=== PATIENT | male | born 1955 | race Caucasian/White ===

== ENCOUNTER 2022-09-26 09:45 | Outpatient (CLI) | payer MEDICARE, SELFPAY ==
--- NOTE | ~2022-09-26 | CT_ITS ---
EXAMINATION: CT abdomen pelvis wo con DATE: 09/26/2022 10:13 INDICATION: Abdominal pain, new anemia TECHNIQUE: Computed tomography (CT) of the abdomen and pelvis was performed without intravenous contr ast. The dose-length product (DLP) was 343.98 mGy-cm. Automated exposure control and iterative recons truction technique were employed. COMPARISON: None FINDINGS: There is a moderate-sized sliding hiatal hernia. The lung bases are clear. The heart size i s normal. The liver, spleen, pancreas, and adrenal glands are normal. Stones are present in the nondi stended gallbladder. Cysts of the kidneys measure up to 4.1 cm on the right. There is calcified ather osclerosis of the aorta and many of the other arteries. No pathologically enlarged abdominal or pelvi c lymph nodes are identified. No free intraperitoneal gas or evidence of bowel obstruction. The appen jayson is normal. There is mild lumbar spondylosis. Possible mild wall thickening of the cecum. IMPRESSION: 1. Cholelithiasis without evidence of cholecystitis. 2. Possible mild wall thickening of the cecum. Recommend correlation with colonoscopy history. There are two moderate-sized sliding hiatal hernia. Reviewed, dictated and finalized at location L. IMPRESSION: 1. Cholelithiasis without evidence of cholecystitis. 2. Possible mild wall thickening of the cecum. Recommend correlation with colon oscopy history. There are two moderate-sized sliding hiatal hernia.
== END 2022-09-26 09:46 | disposition home or self-care (01) ==
PROVIDERS: PCP Internal Medicine; Visit Provider Internal Medicine
DX: R10.9 Unspecified abdominal pain (principal); K80.20 Calculus of gallbladder without cholecystitis without obstruction; K44.9 Diaphragmatic hernia without obstruction or gangrene
CPT/HCPCS: 74176

== ENCOUNTER 2022-09-28 01:35 | Day surgery (SDC) | payer MEDICARE, SELFPAY ==
[2022-09-15 10:54] VITALS: BMI 23.4
[2022-09-28 09:10] VITALS: BP 143/79; PULSE 74; RESP 18; TEMP 36.7; O2SAT 100; BMI 23.6
[2022-09-28] MEDS: LACTATED RINGERS 1,000 ML 150 ML IV CONT (09:29)
--- NOTE | 2022-09-28 09:59 | PM.HPGS ---
History of Present Illness History of Present Illness Consent: Risks, benefits, and alternatives have been discussed and questions answered. Patient agrees to proceed with procedure. Chief complaint: abadominal pain Narrative: Ida Thomas is a 67 year old male Presents for EGD because of abdominal pain. Patient reports intermittent suprapubic cramping. States his though it is a gaseous distension but he is unable to pass gas. Typically this will occur once a week last for several hours. Usually spontaneously dissipated. Patient reports it may be worsened with certain dietary intake. His bowel habits are normal. Recent CT scan revealed gallstones. There was question of a thickening to the cecum it was very nonspecific. Patient denies any fever. He has no significant alteration of bowel habits. EGD is requested today. Subsequent colonoscopy has been advised after preparation at a later day. Family history noncontributory. Previous colonoscopy 5 years ago was unremarkable. Review of Systems Review of Systems: Review of systems noncontributory. [facility] Family History Family History Sibling Patient's sister is in good health Patient's brother is in good health Mother Patient's mother is Father Patient's father is , Onset Age: 50 Social History Social History (Updated 09/11/22 @ 10:30 by Shayy Jeronimo [facility]) Smoking status: Former smoker Second hand tobacco smoke exposure: No Smoking end date: 06/25/02 Alcohol intake: current Drinks per week: 2 Substance use: never Lack of Transportation: YES Concerned About Future Housing: Decline to Answer Difficulty Paying Gas/Electric Bills: Decline to Answer Difficulty Paying for Meds: Decline to Answer Currently Unemployed: Decline to Answer Education: Decline to Answer Difficulty w/ Childcare or Family Care: Decline to Answer Spiritual care concerns: No Meds Home Medications and Allergies Home Medications Medication Instructions Recorded Confirmed Type lisinopril 20 mg tablet 20 mg PO DAILY #90 tabs 08/05/22 09/28/22 Rx ferrous sulfate 325 mg (65 mg 325 mg PO BID #60 tabs 09/22/22 09/28/22 Rx iron) tablet pantoprazole 40 mg tablet,delayed 40 mg PO BID #60 tabs 09/26/22 09/28/22 Rx release (Protonix) Allergies Allergy/AdvReac Type Severity Reaction Status Date / Time Penicillins Allergy Mild Hives Verified 09/28/22 09:18 Vital Signs Vital Signs - 24 hr 09/28/22 09:10 Temperature 98.1 F Pulse Rate 74 Respiratory Rate 18 Blood Pressure 143/79 H Pulse Oximetry 100 Oxygen Delivery Room Air Exam Narrative: Physical exam reveals patient to be alert. Vital signs stable. HEENT exam is unremarkable. Patient is anicteric. Lungs are clear to auscultation and percussion. Heart is without murmur or extra sounds. Abdomen bowel sounds are present soft nontender with no organomegaly. Digital external rectal exam normal per Assessment and Plan Assessment and plan (1) Abdominal pain: Code(s): R10.9 - Unspecified abdominal pain Status: Acute Assessment and Plan: patient with intermittent suprapubic abdominal pain of uncertain nature. Plan for EGD to assess more thoroughly today. Colonoscopy will be considered subsequently if this is not definitive for source of pain. Patient has a rather vague CT scan showing gallstones and question of thickening of the cecum. May need to consider antispasmodic agents for pain. (2) Gallstones: Code(s): K80.20 - Calculus of gallbladder without cholecystitis without obstruction Status: Acute Assessment and Plan: Gallstones identified on CT scan appear to be asymptomatic. No pain in the right upper quadrant.
[2022-09-28 10:55] VITALS: BP 98/60; PULSE 64; RESP 16; O2SAT 98
[2022-09-28 11:05] VITALS: BP 108/67; PULSE 69; RESP 18; O2SAT 100
[2022-09-28 11:15] VITALS: BP 125/74; PULSE 68; RESP 14; O2SAT 100
== END 2022-09-28 11:21 | disposition home or self-care (01) ==
PROVIDERS: PCP Internal Medicine; Visit Provider Internal Medicine Gastroenterology
PROC: 0DJ08ZZ Inspection of Upper Intestinal Tract, Via Natural or Artificial Opening Endoscopic (ICD-10-PCS; CPT 43235; principal; 2022-09-28 10:30)
DX: K22.10 Ulcer of esophagus without bleeding (principal); K80.20 Calculus of gallbladder without cholecystitis without obstruction; Z87.891 Personal history of nicotine dependence
CPT/HCPCS: 43239; 88305; J2704; J7120

== ENCOUNTER 2022-11-28 01:19 | Day surgery (SDC) | payer MEDICARE, SELFPAY ==
[2022-11-17 13:58] VITALS: BMI 22.8
--- NOTE | 2022-11-28 08:28 | P.PNAN_ITS ---
Anes - Initial Pre Proc Eval Procedure: Operation Date: 11/28/22 10:15 Proposed Procedures p Esophagogastroduodenoscopy & Colonoscopy - Ze Lebron MD Date/Time: 11/28/22 08:28 Surgeon: Ze Lebron MD Pre Op Diagnosis: Other specified diseases of intestine Patient Data Age: 67 Gender: M Height: 1.75 m Weight: 70 kg Allergies Allergy/AdvReac Type Severity Reaction Status Date / Time Penicillins Allergy Mild Hives Verified 11/28/22 09:05 Home Medications Medication Instructions Recorded Confirmed Type lisinopril 20 mg tablet 20 mg PO DAILY #90 tabs 08/05/22 11/17/22 Rx ferrous sulfate 325 mg (65 mg 325 mg PO BID #60 tabs 09/22/22 11/17/22 Rx iron) tablet pantoprazole 40 mg tablet,delayed 40 mg PO BID #60 tabs 09/26/22 11/17/22 Rx release (Protonix) sodium,potassium,mag sulfates 17.5 See Rx Instructions PO .COMPLEX 10/27/22 Rx gram-3.13 gram-1.6 gram oral soln #354 mL (Suprep Bowel Prep Kit) Patient hx anesthesia problems: none Family hx anesthesia problems: none Results Review: All pre-operative results and documents have been reviewed as part of the pre- operative evaluation. [facility] Past Medical History Medical History (Updated 11/28/22 @ 08:30 by Earl Greenberg MD) Chronic GERD Essential (primary) hypertension HTN (hypertension) Pure hypercholesterolemia Family History Family History Sibling Patient's sister is in good health Patient's brother is in good health Mother Patient's mother is Father Patient's father is , Onset Age: 50 Social History Social History (Updated 09/11/22 @ 10:30 by Shayy Jeronimo CMA) Smoking packs per day: 0.5 Smoking cigarettes per day: 10.0 Years smoked: 15 Smoking pack-years: 7.50 Smoking status: Former smoker Tobacco type: cigarettes Second hand tobacco smoke exposure: No Smoking end date: 06/25/02 Alcohol intake: never Drinks per week: 2 Substance use: never Substance use type: does not use Lack of Transportation: YES Concerned About Future Housing: Decline to Answer Difficulty Paying Gas/Electric Bills: Decline to Answer Difficulty Paying for Meds: Decline to Answer Currently Unemployed: Decline to Answer Education: Decline to Answer Difficulty w/ Childcare or Family Care: Decline to Answer Living arrangements: alone Spiritual care concerns: No Anes - Eval Final PreProcedure Day of Procedure 11/28/22 08:28 Patient weight: normal Heart: regular rate and rhythm Lungs: clear to auscultation and normal air movement Airway: Mallampati scale class II Neurological: alert and oriented Last oral intake: >/= 8 hours ASA classification: II Emergent: no Anesthetic plan: proceed Anesthesia type and monitoring: general GIVS Results Review: All pre-operative results and documents have been reviewed as part of the pre- operative evaluation. Informed Consent: The patient's anesthetic plan and its attendant risks and benefits were discussed with the patient/family/POA. Questions were solicited and answers provided to the satisfaction of the patient/family/POA.
[2022-11-28 09:06] VITALS: BMI 22.2
[2022-11-28 09:11] VITALS: BP 125/71; PULSE 63; RESP 16; TEMP 36.6; O2SAT 100
--- NOTE | 2022-11-28 09:17 | PM.HPGS ---
History of Present Illness History of Present Illness Consent: Risks, benefits, and alternatives have been discussed and questions answered. Patient agrees to proceed with procedure. Chief complaint: GERD, Erosive Esophagitis, Neoplasia screening Narrative: Ida Thomas is a 67 year old male Presents for both colonoscopy an EGD. Patient has a history of severe erosive esophagitis by endoscopy 2 months ago. Since that time patient has been maintained on pantoprazole 40mg p.o. b.i.d.. He denies any significant heartburn. He has had no significant heartburn prior to this. He does notice occasional cramping in the low abdomen. Bowel habits have otherwise remained normal. He has no bleeding. He has no weight loss. Patient presents today for follow-up EGD to document healing of his esophagitis. Also for colonoscopy for neoplasia screening purposes. Patient reports his bowel habits are normal. He has no known family history of colon or rectal disease. Review of Systems Review of Systems: Review of systems noncontributory. [facility] Past Medical History Medical History (Updated 11/28/22 @ 09:20 by Ze Lebron MD) Chronic GERD Essential (primary) hypertension HTN (hypertension) Pure hypercholesterolemia Family History Family History Sibling Patient's sister is in good health Patient's brother is in good health Mother Patient's mother is Father Patient's father is , Onset Age: 50 Social History Social History (Updated 09/11/22 @ 10:30 by Shayy Jeronimo CMA) Smoking packs per day: 0.5 Smoking cigarettes per day: 10.0 Years smoked: 15 Smoking pack-years: 7.50 Smoking status: Former smoker Tobacco type: cigarettes Second hand tobacco smoke exposure: No Smoking end date: 06/25/02 Alcohol intake: never Drinks per week: 2 Substance use: never Substance use type: does not use Lack of Transportation: YES Concerned About Future Housing: Decline to Answer Difficulty Paying Gas/Electric Bills: Decline to Answer Difficulty Paying for Meds: Decline to Answer Currently Unemployed: Decline to Answer Education: Decline to Answer Difficulty w/ Childcare or Family Care: Decline to Answer Living arrangements: alone Spiritual care concerns: No Meds Home Medications and Allergies Home Medications Medication Instructions Recorded Confirmed Type lisinopril 20 mg tablet 20 mg PO DAILY #90 tabs 08/05/22 11/17/22 Rx ferrous sulfate 325 mg (65 mg 325 mg PO BID #60 tabs 09/22/22 11/17/22 Rx iron) tablet pantoprazole 40 mg tablet,delayed 40 mg PO BID #60 tabs 09/26/22 11/17/22 Rx release (Protonix) Allergies Allergy/AdvReac Type Severity Reaction Status Date / Time Penicillins Allergy Mild Hives Verified 11/28/22 09:05 Vital Signs Vital Signs - 24 hr 11/28/22 09:11 Temperature 98 F Pulse Rate 63 Respiratory Rate 16 Blood Pressure 125/71 Pulse Oximetry 100 Oxygen Delivery Room Air Exam Narrative: Physical exam reveals patient to be alert. Vital signs stable. HEENT exam is unremarkable. Patient is anicteric. Lungs are clear to auscultation and percussion. Heart is without murmur or extra sounds. Abdomen bowel sounds are present soft nontender with no organomegaly. Digital external rectal exam is normal. Assessment and Plan Assessment and plan (1) Chronic GERD: Code(s): K21.9 - Gastro-esophageal reflux disease without esophagitis Status: Acute Assessment and Plan: Patient with chronic GE reflux disease. Appears to have erosive esophagitis by history follow-up EGD to document healing at this time. Long-term anti-reflux measures and PPI therapy are encouraged. (2) Encounter for screening colonoscopy: Code(s): Z12.11 - Encounter for screening for malignant neoplasm of colon Status: Acute Assessment an
[2022-11-28] MEDS: LACTATED RINGERS 1,000 ML 150 ML IV CONT (09:18)
--- NOTE | 2022-11-28 10:09 | SUR.OPER ---
EGD: [id number] COLON: [id number]
[2022-11-28 10:24] VITALS: BP 112/67; PULSE 72; RESP 20; O2SAT 100
[2022-11-28 10:34] VITALS: BP 114/73; PULSE 59; RESP 20; O2SAT 100
[2022-11-28] MEDS: PROPARACAINE HCL 0.5% 15 ML OPHTH SOLN 1 DROP EACH EYE (10:40)
[2022-11-28 10:44] VITALS: BP 118/69; PULSE 72; RESP 18; O2SAT 100
[2022-11-28] MEDS: DICLOFENAC SODIUM 0.1% OPHTH SOLN 2.5 ML BOTTLE 1 DROP EACH EYE (10:45)
[2022-11-28] MEDS: ARTIFICIAL TEARS OPHTH SOLN 15 ML BOTTLE 1 DROP EACH EYE (10:54)
[2022-11-28 10:56] LABS: Basophils Percent Auto 0.9 % (0.2-1.2); Eosinophils Absolute Auto 0.1 K/mm3 (0-0.3); Eosinophils Percent Auto 2.1 % (0-4.4); Hematocrit 33.7 % (42.0-52.0); Hemoglobin 10.5 g/dL (14.0-18.0); Lymphocytes Absolute Auto 0.77 K/mm3 (0.9-3.2); Lymphocytes Percent Auto 22.7 % (18.3-44.2); Mean Corpuscular HGB Conc 31.2 g/dl (32-36); Mean Corpuscular Hemoglobin 27.1 pg (26-34); Mean Corpuscular Volume 87.1 fl (80-100); Mean Platelet Volume 7.9 fl (7.4-10.4); Monocytes Absolute Auto 0.3 K/mm3 (0.1-0.6); Monocytes Percent Auto 9.7 % (2.6-8.5); Neutrophils Absolute Auto 2.2 K/mm3 (1.3-6.7); Neutrophils Percent Auto 64.6 % (45.5-73.1); Platelet Count Result 230 k/mm3 (150-375); Red Blood Count 3.87 M/mm3 (4.6-6.20); Red Cell Distribution Width 20.1 % (11.5-14.5); White Blood Count 3.4 K/mm3 (4.5-10.0)
--- NOTE | 2022-11-28 11:02 | SUR.PHASEII ---
1024: PT CAME TO POST OP WITH LEFT EYE WATERING, REDDNESS, BURNING, AND ITCHING. DR DIALLO NOTIFIED AND POST OP CORNEAL ABRASION PROTOCOL ORDERED AND INITIATED. LAB WORK DRAWN IN POST OP PER ORDERS. 1104: DR KEN BACK TO PT'S ROOM TO DISCUSS FURTHER DISCHARGE INSTRUCTIONS PER PT REQUEST.
[2022-11-28 11:04] LABS: Albumin Level 4.5 g/dL (3.5-5.1); Anion Gap 9 mmol/L (8-16); Blood Urea Nitrogen 12 mg/dL (9-20); Calcium 9.3 mg/dL (8.4-10.2); Carbon Dioxide 24 mmol/L (22-30); Chloride 105 mmol/L (98-107); Estimated CRCL calculation 60 ml/min; Estimated Glomerular Filt Rate > 60; Glucose 80 mg/dL (65-110); Phosphorus 3.8 mg/dL (2.5-4.5); Potassium 4.4 mmol/L (3.4-5.0); Sodium 138 mmol/L (137-145)
== END 2022-11-28 11:07 | disposition home or self-care (01) ==
PROVIDERS: PCP Internal Medicine; Visit Provider Internal Medicine Gastroenterology
PROC: 0DJ08ZZ Inspection of Upper Intestinal Tract, Via Natural or Artificial Opening Endoscopic (ICD-10-PCS; CPT 43235; principal; 2022-11-28 10:15)
DX: Z12.11 Encounter for screening for malignant neoplasm of colon (principal); C18.0 Malignant neoplasm of cecum; K44.9 Diaphragmatic hernia without obstruction or gangrene; K22.10 Ulcer of esophagus without bleeding; K57.30 Diverticulosis of large intestine without perforation or abscess without bleeding; K21.9 Gastro-esophageal reflux disease without esophagitis; I10 Essential (primary) hypertension; E78.00 Pure hypercholesterolemia, unspecified; Z87.891 Personal history of nicotine dependence
CPT/HCPCS: 43239; 45380; 45381; 36415; 80069; 82378; 85025; 88305; A9270; J2704; J7120

== ENCOUNTER 2022-12-12 11:54 | Outpatient (CLI) | payer MEDICARE, SELFPAY ==
--- NOTE | 2022-12-12 12:26 | ECG_ITS ---
Measurements Intervals [place] Rate: 62 P: 62 [place]: 168 QRS: 56 QRSD: 94 T: 48 QT: 379 QTc: 386 Interpretive Statements SINUS RHYTHM NO PREVIOUS ECG AVAILABLE FOR COMPARISON Electronically Signed On 12-12-2022 16:20:35 CDT by Tico De Jesus M.D.
== END 2022-12-12 11:55 | disposition home or self-care (01) ==
LOC: ANHSURGERY 11:58
PROVIDERS: PCP Internal Medicine; Visit Provider Surgery
DX: Z01.812 Encounter for preprocedural laboratory examination (principal); Z01.810 Encounter for preprocedural cardiovascular examination; C18.9 Malignant neoplasm of colon, unspecified
CPT/HCPCS: 36415; 86850; 86900; 86901; 93005

== ENCOUNTER 2022-12-21 17:28 | Inpatient (IN) | payer MEDICARE, SELFPAY ==
[2022-12-12 11:56] VITALS: BMI 23.1
--- NOTE | 2022-12-12 12:15 | PC.NURSE ---
Report to the Outpatient Waiting Room, entrance under the green pavilion located off [facility], at time 12:30 on date 12/21/22. Planned Procedure Time: 2:30. Time changes happen often and if your time is changed the preop area will call you the afternoon before. - You and your visitor will be asked to self-screen and do not enter if you have any COVID symptoms. - A mask is optional within the hospital at this time. YOU WILL BE STAYING OVERNIGHT. PLEASE PACK A SMALL OVERNIGHT BAG AND LEAVE IN THE CAR FOR YOUR VISITOR TO BRING TO YOUR ROOM AFTER YOUR SURGERY. Patients may have clear liquids (water, carbonated beverages, clear teas, apple juice) until 3 hours prior to surgery (11:30) with a maximum of 20 ounces. - No food from midnight until time of surgery FOLLOW INSTRUCTIONS FROM DR. LORD REGARDING BOWEL PREP AND ENSURE. Take the following medications with a SIP of water the morning of surgery: NONE DO NOT STOP ANY OF YOUR OTHER PRESCRIPTION MEDICATIONS PRIOR TO SURGERY ?EXCEPT THE FOLLOWING Medications to discontinue per physician: N/A Date to take last dose: N/A FOLLOW INSTRUCTIONS FROM DR. LORD REGARDING CIPROFLOXACIN AND METRONIDAZOLE DAY BEFORE SURGERY. Please no make-up, nail lithuanian, hairspray, perfume, deodorant, or body powder the day of surgery. No jewelry (including any body piercings) or valuables the day of surgery, leave them at home. Please take a shower or bath the night before, or the morning of, surgery with an antibacterial soap. Wear comfortable, loose fitting clothing. - Jewelry must be removed prior to entering the operating room. Rings and piercings that are not removed may be cut off. - The hospital will not accept responsibility for valuables. - Please leave all valuables, including medications, at home the day of surgery. If you are going home after surgery, a licensed fire truck driver must drive you home. - NO public transportation without another adult if you receive anesthesia. - We recommend that an adult stay with you for 24 hours following discharge. - We also recommend that you do not drive, make important decision, drink alcoholic beverages, or take any drugs that were not prescribed by your health care provider for at least 24 hours after your discharge time. Follow any additional instructions given to you from your surgeon. If you or anyone in your household have experienced Covid symptoms in the past week, please notify your surgeon or the nurse liaison at the phone number below for possible testing. WRITTEN instructions given to CONI HERNANDEZ and asked if any additional questions and then verbalized understanding. Patient advised to call surgeon office or pre surgery nurse liaison [phone] if any additional questions.
[2022-12-12 12:32] VITALS: BP 124/63; PULSE 68; RESP 16; TEMP 37.3
--- NOTE | 2022-12-20 14:10 | WPDANESEPPF ---
Anes - Initial Pre Proc Eval Procedure: Operation Date: 12/21/22 13:00 Proposed Procedures p Robotic Assisted Right Colectomy - Mame Mckee MD Date/Time: 12/20/22 14:10 Surgeon: Mame Mckee MD Pre Op Diagnosis: right colon CA Patient Data Age: 67 Gender: M Height: 1.75 m Weight: 71.2 kg Last Vital Signs Temp 99.2 F 12/12/22 12:32 Pulse 68 12/12/22 12:32 Resp 16 12/12/22 12:32 BP 124/63 12/12/22 12:32 Allergies Allergy/AdvReac Type Severity Reaction Status Date / Time Penicillins Allergy Mild Hives Verified 12/21/22 12:12 Home Medications Medication Instructions Recorded Confirmed Type lisinopril 20 mg tablet 20 mg PO DAILY #90 tabs 08/05/22 12/21/22 Rx pantoprazole 40 mg tablet,delayed 40 mg PO BID #60 tabs 11/28/22 12/21/22 Rx release (Protonix) ciprofloxacin HCl 500 mg tablet See Rx Instructions .Route 12/08/22 12/19/22 Rx (Cipro) .COMPLEX #1 tablet metronidazole 500 mg tablet See Rx Instructions .Route 12/08/22 12/19/22 Rx .COMPLEX #3 tabs Patient hx anesthesia problems: none Family hx anesthesia problems: none Results Review: All pre-operative results and documents have been reviewed as part of the pre-operative evaluation. [facility] Past Medical History Medical History Chronic GERD Essential (primary) hypertension HTN (hypertension) Pure hypercholesterolemia Surgical History Surgical History Elective surgery Finger History of lung surgery Family History Family History Sibling Patient's sister is in good health Patient's brother is in good health Mother Patient's mother is Father Patient's father is , Onset Age: 50 Social History Social History Smoking packs per day: 1 Smoking cigarettes per day: 20.0 Years smoked: 15 Smoking pack-years: 15.00 Smoking status: Former smoker Tobacco type: cigarettes Second hand tobacco smoke exposure: No Smoking end date: 06/25/90 Alcohol intake: current Drinks per week: 2 Alcohol use details: RARE Substance use: current Substance use type: marijuana Lack of Transportation: YES Concerned About Future Housing: Decline to Answer Difficulty Paying Gas/Electric Bills: Decline to Answer Difficulty Paying for Meds: Decline to Answer Currently Unemployed: Decline to Answer Education: Decline to Answer Difficulty w/ Childcare or Family Care: Decline to Answer Living arrangements: alone Spiritual care concerns: No Anes - Eval Final PreProcedure Day of Procedure 12/20/22 14:10 Patient weight: normal Heart: regular rate and rhythm Lungs: clear to auscultation Airway: Mallampati scale class II Neurological: alert and oriented Last oral intake: >/= 8 hours ASA classification: III Emergent: no Anesthetic plan: proceed Anesthesia type and monitoring: general ETT and standard monitoring Results Review: All pre-operative results and documents have been reviewed as part of the pre-operative evaluation. Informed Consent: The patient's anesthetic plan and its attendant risks and benefits were discussed with the patient/family/POA. Questions were solicited and answers provided to the satisfaction of the patient/family/POA.
[2022-12-21] VITALS (12 sets, daily range): BP systolic 105–144; BP diastolic 37–106; PULSE 52–76; RESP 12–20; TEMP 36.3–37.6; O2SAT 97–100; BMI 22.3
[2022-12-21] MEDS: LACTATED RINGERS 1,000 ML 30 ML IV CONT ×2 (11:55→16:19)
[2022-12-21] MEDS: ACETAMINOPHEN 500 MG TABLET 1000 MG PO ×2 (12:02→17:55)
[2022-12-21] MEDS: KETOROLAC 15 MG/ML VIAL (*BKC) IV PUSH (12:03)
--- NOTE | 2022-12-21 12:09 | WPDHPUPDATE1 ---
History and Physical Update Update Date/Time: 12/21/22 12:09 History and Physical has been reviewed, including an updated exam of the patient. There are NO changes in the patient's condition. Risks, benefits, and alternatives have been discussed and questions answered. Patient agrees to proceed with procedure.
[2022-12-21] MEDS: ALVIMOPAN 12 MG CAPSULE PO (12:36)
[2022-12-21] MEDS: ceFAZolin 2 GM/D5W 50 ML 2 GM/50 ML BAG IVPB (12:49)
[2022-12-21] MEDS: metroNIDAZOLE 500 MG/ISO 100ML 500 MG/100 ML BAG 100 MG IVPB (13:45)
[2022-12-21] MEDS: INDOCYANINE GREEN 25 MG VIAL WITH DILUENT 3.75 MG IV PUSH (14:42)
--- NOTE | 2022-12-21 16:22 | W.PM.PROC2 ---
Procedure Note - Detailed Date of Procedure 12/21/22 Pre-op Diagnosis right colon cancer Post-op Diagnosis Same Procedure Performed robotic assisted right hemicolectomy Surgeon Mame Mckee MD Employment Educational Coord Emmanuel Anesthesia General Indications 67-year-old male presenting to the office with right colon cancer. The patient had colonoscopy and biopsy was proven to be adenocarcinoma. Given these findings the patient was offered right colectomy. The patient opted to proceed with the procedure. Findings Tattoo and mass noted in the cecum Description of Procedure The patient was taken to the operating room and placed in the supine position.? After adequate induction of general anesthesia, the patient was prepped and draped in the normal sterile fashion.? A time-out was then done to verify the patient's identity, as well as the procedure being performed. Please note that my partner Dr. Benitez was present for the entirety of the case and assisted me with all portions of the procedure including set up, port placement, medial to lateral dissection, right colon resection, ileocolic anastomosis, specimen extraction.? A 8 mm incision was made at bird's point and a Veress needle was placed into the peritoneal cavity.? CO2 gas was then insufflated.? After adequate pneumoperitoneum was achieved, the Veress needle was removed and a 8 mm Optiview trocar was placed under direct visualization.? Once noted to be in the abdominal cavity the trocar was removed and the laparoscopic was placed this site.? Direct visualization, a 12 mm port was placed in the left upper abdomen, a 8 mm port was placed in the left mid abdomen, a 8 mm port was placed in the suprapubic abdomen, and finally a 8 mm customer marketing assistant port was placed in the left upper abdomen.? At this point, I used the laparoscope to examine the abdomen.? There was noted to be a tumor in the cecum with noted tattoo that was tethered to the right lateral abdominal wall.? I was able to sweep the small bowel out of the way.? The omentum was brought up over the transverse colon.? Once these maneuvers were complete, the robot was docked to the port sites.? I then went to the robotic console to begin the robotic portion of the case.? I was able to gain access into the right colonic mesentery.? I was able to visualize the duodenum and this was swept posteriorly out of the operative field.? I then identified the ileocolic vessels and transected the vessels with the vessel sealer device.? I then continued my medial to lateral dissection freeing up the mesentery of the right colon off the underlying retroperitoneal structures.? This medial dissection was continued until I was able to visualize the liver in the right upper quadrant.? I then began the lateral dissection by taking the omentum off the proximal transverse colon and continuing this dissection plane around the hepatic flexure.? I then continued along the right colon taking down the white line of Toldt and connecting this with our medial dissection plane.? Finally, I finished the dissection by taking down the ileocolic attachments including the appendix.? Once the right colon was completely mobilized and free I began to pick the areas of our resection.? ICG was injected by Anesthesia and under firefly visualization I was able to identify the vascular adequacy of our anticipated transection margins.? Once these margins were confirmed, I first transected the ileum with a 60 surefire stapler.? This was approximately 5 cm from the ileocolic valve.? Next I transected the proximal transverse colon again having confirmed good perfusion to the remaining colon.? The specimen was then placed up over the liver for anticipated extraction later in the case.? At this point, I completed a isoperistaltic, intracorporeal? ileocolic anastomosis.? This was done using a 60 mm stapler as the common channel.? I then closed the common enterotomy using an additional fire of the 60 mm stapler.? Once completed, th
[2022-12-21] MEDS: MEPERIDINE HCL INJ (*CRX) 50 MG/ML AMPUL 25 MG IV PUSH (17:01)
--- NOTE | 2022-12-21 17:36 | ADMGEN ---
This patient, Ida Thomas, was admitted to Medical Room 343-01. Patient/family oriented to hospital policies and general routines including ID bracelet, bed and alarms, visiting hours, pain management, procedures, bathroom and other care routines, personal items, smoking policy, room service/diet, and visiting hours. Information on how to activate the Rapid Response Team has been discussed. Patient/Family are encouraged to report perceived risks to care and to ask questions if they do not understand what they are told or what they should do.
[2022-12-21] MEDS: LACTATED RINGERS 1,000 ML 100 ML IV CONT (17:54)
[2022-12-21] MEDS: HYDROcodone/acetaminophen (*CRX) 5-325 MG TABLET 1 TAB PO (20:31)
[2022-12-21] MEDS: ceFAZolin 1 GM/NS 50 ML 1 GM/50 ML BAG IVPB (20:31)
[2022-12-22] MEDS: ACETAMINOPHEN 500 MG TABLET 1000 MG PO ×3 (00:19→13:28)
[2022-12-22 03:13] VITALS: BP 117/56; PULSE 65; RESP 16; TEMP 36.9; O2SAT 98
[2022-12-22] MEDS: LACTATED RINGERS 1,000 ML 100 ML IV CONT (04:30)
[2022-12-22] MEDS: ceFAZolin 1 GM/NS 50 ML 1 GM/50 ML BAG IVPB (05:25)
[2022-12-22 05:38] LABS: Basophils Percent Auto 0.3 % (0.2-1.2); Eosinophils Percent Auto 0.2 % (0-4.4); Hematocrit 29.9 % (42.0-52.0); Hemoglobin 9.4 g/dL (14.0-18.0); Immature Granulocyte Absolute 0.02 K/mm3 (0.00-0.031); Immature Granulocyte Percent A 0.3 % (0-0.5); Lymphocytes Percent Auto 12.6 % (18.3-44.2); Mean Corpuscular HGB Conc 31.4 g/dl (32-36); Mean Corpuscular Hemoglobin 27.5 pg (26-34); Mean Corpuscular Volume 87.4 fl (80-100); Mean Platelet Volume 8.4 fl (7.4-10.4); Monocytes Absolute Auto 0.8 K/mm3 (0.1-0.6); Monocytes Percent Auto 11.8 % (2.6-8.5); Neutrophils Absolute Auto 4.7 K/mm3 (1.3-6.7); Neutrophils Percent Auto 74.8 % (45.5-73.1); Platelet Count Result 220 k/mm3 (150-375); Red Blood Count 3.42 M/mm3 (4.6-6.20); Red Cell Distribution Width 16.4 % (11.5-14.5); White Blood Count 6.3 K/mm3 (4.5-10.0)
[2022-12-22 05:45] LABS: Anion Gap 8 mmol/L (8-16); Blood Urea Nitrogen 13 mg/dL (9-20); Calcium 8.5 mg/dL (8.4-10.2); Carbon Dioxide 23 mmol/L (22-30); Chloride 106 mmol/L (98-107); Estimated CRCL calculation 50 ml/min; Estimated Glomerular Filt Rate 60; Glucose 91 mg/dL (65-110); Potassium 4.1 mmol/L (3.4-5.0); Sodium 137 mmol/L (137-145)
--- NOTE | 2022-12-22 07:56 | WPDANESPN ---
Anes - Prog Note Post-Op Date/Time: 12/22/22 07:56 Vital Signs: Last Vital Signs Temp 36.9 C 12/22/22 03:13 Pulse 65 12/22/22 03:13 Resp 16 12/22/22 03:13 BP 117/56 L 12/22/22 03:13 Pulse Ox 98 12/22/22 03:13 O2 Del Method Room Air 12/21/22 20:00 O2 Flow Rate 10 12/21/22 16:35 Pain Score (VAS): 0 I/O: Intake & Output 12/21/22 12/21/22 12/22/22 15:59 23:59 07:59 Intake Total 709 337 6298 Output Total 100 200 Balance 150 250 950 Laboratory Tests 12/22/22 05:19 12/22/22 05:19 12/22/22 05:19 WBC 6.3 RBC 3.42 L Hgb 9.4 L Hct 29.9 L MCV 87.4 MCH 27.5 MCHC 31.4 L RDW 16.4 H Plt Count 220 MPV 8.4 Immature Gran % (Auto) 0.3 Neut % (Auto) 74.8 H Lymph % (Auto) 12.[address] % (Auto) 11.8 H Eos % (Auto) 0.2 Baso % (Auto) 0.3 Lymph # (Auto) 0.[address] [place] # (Auto) 0.8 H Eos # (Auto) 0.0 Baso # (Auto) 0.0 Abs Immat Gran (auto) 0.02 Absolute Neuts (auto) 4.7 Absolute Nucleated RBC 0.0 Nucleated RBC % 0.0 Sodium 137 Potassium 4.1 Chloride 106 Carbon Dioxide 23 Anion Gap 8 BUN 13 Creatinine 1.20 Estim Creat Clear Calc 50 Estimated GFR 60 Glucose 91 Calcium 8.5 Patient Feedback: Patient satisfied with anesthetic care.
[2022-12-22 08:19] VITALS: BP 105/55; PULSE 58; RESP 16; TEMP 37.2; O2SAT 97
[2022-12-22] MEDS: lisinopriL 20 MG TABLET PO (08:26)
[2022-12-22] MEDS: PANTOPRAZOLE 40 MG TABLET PO (08:26)
[2022-12-22] MEDS: ENOXAPARIN 40 MG/0.4 ML SYRINGE SUB-Q (08:26)
[2022-12-22 14:00] VITALS: BP 131/63; PULSE 65; RESP 16; TEMP 37.1; O2SAT 97
--- NOTE | 2022-12-22 15:41 | PM.DS ---
DS: Admitting Diagnosis Discharge Date 12/22/22 Admitting Diagnosis Right colon cancer DS: Discharge Diagnosis Discharge Diagnosis (1) Adenocarcinoma: Code(s): C80.1 - Malignant (primary) neoplasm, unspecified Status: Acute Assessment and Plan: status post robotic right colectomy, doing well, continue routine postoperative care, await path, home with p.o. analgesia and Colace, follow-up 2 weeks DS: Summary Hospital Course Reason for hospitalization: right colon cancer Hospital Course: The patient is a pleasant 67-year-old male presenting with right colon adenocarcinoma. The patient underwent robotic assisted right colectomy on 12/21/2022, please see full operative report for details of that procedure. Postoperatively the patient did well and was transferred to the surgical floor. Overnight, the patient reports he had a small bowel movement and has been passing flatus. Postoperative day 1., his Morales was removed in the morning and he was able to tolerate a clear liquid diet. His diet was slowly advanced throughout the day which he tolerated without difficulty. The patient reports minimal incisional soreness, well controlled with p.o. analgesia. At this time, the patient will be discharged home with p.o. analgesia and Colace. His path is pending and I will call him with the results when available. The patient will follow up with me 2 weeks. Status at Discharge Functional status at discharge: independent ambulation Overall status at discharge: patient is progressing back to baseline Time Spent with Patient Time attestation: Total time spent providing and/or coordinating discharge services: Time spent: Less than 30 minutes Exam Const: General: cooperative, comfortable and no acute distress Resp: Auscultation: clear to auscultation bilaterally Cardio: Rate: regular rate Rhythm: regular rhythm GI: Inspection: normal to inspection, non-distended and incision GI Palp: Yes abdominal tenderness, Yes Soft to palpation, Yes Tenderness to palpation present (GI), No Guarding due to palpation present (GI) and No Rigid due to palpation DS: Data Data Completed and Pending Pending studies at discharge: Pending at discharge 12/21/22 15:42 Surgical [PTH] Routine 12/21/22 15:48 Surgical [PTH] Routine Labs on day of discharge: Labs from last 24 hours 12/22/22 05:19 WBC 6.3 RBC 3.42 L Hgb 9.4 L Hct 29.9 L MCV 87.4 MCH 27.5 MCHC 31.4 L RDW 16.4 H Plt Count 220 MPV 8.4 Immature Gran % (Auto) 0.3 Neut % (Auto) 74.8 H Lymph % (Auto) 12.6 L [place] % (Auto) 11.8 H Eos % (Auto) 0.2 Baso % (Auto) 0.3 Lymph # (Auto) 0.80 L [place] # (Auto) 0.8 H Eos # (Auto) 0.0 Baso # (Auto) 0.0 Abs Immat Gran (auto) 0.02 Absolute Neuts (auto) 4.7 Absolute Nucleated RBC 0.0 Nucleated RBC % 0.0 Sodium 137 Potassium 4.1 Chloride 106 Carbon Dioxide 23 Anion Gap 8 BUN 13 Creatinine 1.20 Estim Creat Clear Calc 50 Estimated GFR 60 Glucose 91 Calcium 8.5 Discharge Plan Discharge Attending physician on discharge: Mame Mckee Discharging Clinician: Mame Mckee Anticipated Discharge Date/Time: 12/22/22 15:39 Patient Disposition: Home, Self-Care Activity: may shower and no straining Diet: as tolerated Wound Care Instructions: incision open to air Patient Instructions: Antibiotic Form Stand Alone Forms: General Discharge Information Follow-up/Referrals: Mame Mckee MD [Physician] - 2 Weeks Discharge Medications: New hydrocodone-acetaminophen 7.5-325 mg tablet 1 tablet PO Q6H PRN (Reason: pain) Qty: 30 0RF docusate sodium [Colace] 100 mg capsule 100 mg PO BID Qty: 30 0RF Continued lisinopril 20 mg tablet 20 mg PO DAILY Qty: 90 1RF pantoprazole [Protonix] 40 mg tablet,delayed release (DR/EC) 40 mg PO BID Qty: 60 3RF Rx Instructions: stop omeprazole Discontinued ciprofloxacin HCl [Cipro] 500
--- NOTE | 2022-12-22 17:06 | PC.NURSE ---
Dr Mckee to resubmit prescriptions to local [facility]. The first attempt was sent to mail order pharmacy that patient no longer uses. Pt is aware and ok with discharging before submission was processed as his ride was waiting.
== END 2022-12-22 17:15 | disposition home or self-care (01) | DRG 330 ==
LOC: ANH3MED 17:31
PROVIDERS: Admitting Provider Surgery; PCP Internal Medicine; Visit Provider Surgery
PROC: 0DTF4ZZ Resection of Right Large Intestine, Percutaneous Endoscopic Approach (ICD-10-PCS; principal; 2022-12-21 13:00)
DX: C18.2 Malignant neoplasm of ascending colon (principal); C79.89 Secondary malignant neoplasm of other specified sites; K21.9 Gastro-esophageal reflux disease without esophagitis; I10 Essential (primary) hypertension; E78.00 Pure hypercholesterolemia, unspecified; Z87.891 Personal history of nicotine dependence; Z88.0 Allergy status to penicillin
CPT/HCPCS: 36415; 80048; 85025; 88309; A9270; J0690; J1100; J1650; J1836; J1885; J2175; J2250; J2405; J2704; J2710; J3010; J7120

== ENCOUNTER 2023-01-25 08:13 | Outpatient (CLI) | payer MEDICARE, SELFPAY ==
--- NOTE | ~2023-01-25 | CT_ITS ---
Clinical Indication: Colon cancer CT Scan of the Chest, Abdomen, and Pelvis with Contrast: Technique: Contiguous sections were acquired throughout the chest, abdomen, and pelvis after intraven ous administration of 100 cc of Omnipaque 350. Dose reduction technique was used on this scan by mei maldonado automated exposure control and iterative reconstruction technique. The dose-length product (DL P) was 505.70 mGy-cm. COMPARISON: 09/26/2022 Findings: There is no evidence of any significant mediastinal, hilar or axillary lymphadenopathy. The mediastin al soft tissues and vascular structures appear normal. Moderate hiatal hernia noted. There is no evidence of pleural or pericardial effusion. The lungs are clear. No pulmonary nodules or infiltrates are noted. The liver, spleen, pancreas, adrenals and kidneys are within normal limits. Small gallstone present. There are atherosclerotic calcifications of the aorta. No lymphadenopathy. No bowel obstruction or bowel wall thickening. Sigmoid and descending colonic diverticulosis present. Enterocolonic anastomosis noted. Urinary bladder is unremarkable. No pelvic mass evident. No ascites. Impression: No evidence for active malignancy or metastatic disease. Status post right colonic resection with ent erocolonic anastomosis present. Cholelithiasis. Moderate hiatal hernia. Reviewed, dictated and finalized at [facility]. Impression: No evidence for active malignancy or metastatic disease. Status post right colo sharron resection with enterocolonic anastomosis present. Cholelithiasis. Moderate hiatal hernia.
[2023-01-25 08:54] LABS: Estimated Glomerular Filt Rate 60
== END 2023-01-25 08:14 | disposition home or self-care (01) ==
PROVIDERS: PCP Internal Medicine; Visit Provider Internal Medicine Hematology & Oncology
DX: C18.9 Malignant neoplasm of colon, unspecified (principal); K80.20 Calculus of gallbladder without cholecystitis without obstruction; K44.9 Diaphragmatic hernia without obstruction or gangrene
CPT/HCPCS: 36415; 71260; 74177; 85610; 85730; Q9967

== ENCOUNTER 2023-01-25 11:32 | Outpatient (CLI) | payer MEDICARE, SELFPAY ==
[2023-01-25 12:11] LABS: Partial Thromboplastin Time 29.7 SECONDS (22.3-36.8); Prothrombin Time 13.5 Seconds (11.1-14.7)
== END 2023-01-25 11:33 | disposition home or self-care (01) ==
LOC: ANHSURGERY 11:35
PROVIDERS: PCP Internal Medicine; Visit Provider Surgery
DX: Z01.812 Encounter for preprocedural laboratory examination (principal); C18.9 Malignant neoplasm of colon, unspecified
CPT/HCPCS: 36415; 85610; 85730

== ENCOUNTER 2023-01-29 01:05 | Day surgery (SDC) | payer MEDICARE, SELFPAY ==
[2023-01-25 09:27] VITALS: BMI 22.4
--- NOTE | 2023-01-25 09:54 | PC.NURSE ---
Report to the Outpatient Waiting Room, entrance under the green pavilion located off [facility], at time __8:30AM on date __01/29/23 . Planned Procedure Time: _10:30AM . Time changes happen often and if your time is changed the preop area will call you the afternoon before. - You and your visitor will be asked to self-screen and do not enter if you have any COVID symptoms. - A mask is optional within the hospital at this time. Patients may have clear liquids (water, carbonated beverages, clear teas, apple juice) until 3 hours prior to surgery with a maximum of 20 ounces. - No food from midnight until time of surgery Take the following medications with a SIP of water the morning of surgery: __NONE DO NOT STOP ANY OF YOUR OTHER PRESCRIPTION MEDICATIONS PRIOR TO SURGERY ?EXCEPT THE FOLLOWING Medications to discontinue per physician ____HOLD ALL VITAMINS/SUPPLEMENTS 3 DAYS PRE-OP Date to take last dose__01/25/23 Please no make-up, nail urdu, hairspray, perfume, deodorant, or body powder the day of surgery. No jewelry (including any body piercings) or valuables the day of surgery, leave them at home. Please take a shower or bath the night before, or the morning of, surgery with an antibacterial soap. Wear comfortable, loose fitting clothing. Children are encouraged to wear pajamas. - Jewelry must be removed prior to entering the operating room. Rings and piercings that are not removed may be cut off. - The hospital will not accept responsibility for valuables. - Please leave all valuables, including medications, at home the day of surgery. If you are going home after surgery, a licensed steam train driver must drive you home. - NO public transportation without another adult if you receive anesthesia. - We recommend that an adult stay with you for 24 hours following discharge. - We also recommend that you do not drive, make important decision, drink alcoholic beverages, or take any drugs that were not prescribed by your health care provider for at least 24 hours after your discharge time. Follow any additional instructions given to you from your surgeon. If you or anyone in your household have experienced Covid symptoms in the past week, please notify your surgeon or the nurse liaison at the phone number below for possible testing. Telephone instructions given to __PATIENT and asked if any additional questions and then verbalized understanding. Patient advised to call surgeon office or pre surgery nurse liaison [phone] if any additional questions.
--- NOTE | ~2023-01-29 | XR_ITS ---
EXAMINATION: XR chest port-a-cath/central DATE: 01/29/2023 10:25 INDICATION: Port placement. TECHNIQUE: A single frontal view of the chest was obtained. COMPARISON: Fluoroscopy 01/29/2023, chest CT 01/25/2023 FINDINGS: There is no pneumonia, pleural effusion, or pneumothorax. The heart size is normal. There i s a moderate-sized hiatal hernia. There is a right subclavian port with tip in superior vena cava. Th ere is deviation of the catheter between the clavicle and first rib without catheter compression. IMPRESSION: 1. Port tip in superior vena cava. 2. Moderate-sized hiatal hernia. Reviewed, dictated and finalized at location A.
--- NOTE | ~2023-01-29 | XR_ITS ---
EXAMINATION: XR fl guide central line place DATE: 01/29/2023 10:15 INDICATION: Port placement. TECHNIQUE: A single intraoperative fluoroscopic view of the chest was obtained. I was not present. Fl uoroscopy exposure time was 28 seconds. COMPARISON: CT chest 01/25/23 FINDINGS: There is a right subclavian port with tip in superior vena cava. IMPRESSION: 1. Port tip in superior vena cava. Reviewed, dictated and finalized at location A.
--- NOTE | 2023-01-29 07:29 | WPDHPUPDATE1 ---
History and Physical Update Update Date/Time: 01/29/23 07:29 History and Physical has been reviewed, including an updated exam of the patient. There are NO changes in the patient's condition. Risks, benefits, and alternatives have been discussed and questions answered. Patient agrees to proceed with procedure. pt seen by oncology and recommendation for adjuvant chemotherapy, will setup for VAD placement for access
[2023-01-29 08:27] VITALS: BMI 22.6
[2023-01-29 08:30] VITALS: BP 145/72; PULSE 73; RESP 16; TEMP 36.4; O2SAT 100
[2023-01-29] MEDS: LACTATED RINGERS 1,000 ML 30 ML IV CONT ×2 (09:00→10:19)
--- NOTE | 2023-01-29 09:08 | WPDANESEPPF ---
Anes - Initial Pre Proc Eval Procedure: Operation Date: 01/29/23 10:30 Proposed Procedures p Insertion Marito Cath - Mame Mckee MD Date/Time: 01/29/23 09:08 Surgeon: Mame Mckee MD Pre Op Diagnosis: colon cancer Patient Data Age: 67 Gender: M Height: 1.75 m Weight: 69 kg Allergies Allergy/AdvReac Type Severity Reaction Status Date / Time Penicillins Allergy Mild Hives Verified 01/25/23 09:24 Home Medications Medication Instructions Recorded Confirmed Type pantoprazole 40 mg tablet,delayed 40 mg PO BID #60 tabs 11/28/22 01/25/23 Rx release (Protonix) multivitamin 1 tablet PO DAILY 01/10/23 01/25/23 History lisinopril 20 mg tablet 20 mg PO QAM 01/25/23 01/25/23 History Patient hx anesthesia problems: none Family hx anesthesia problems: none Results Review: All pre-operative results and documents have been reviewed as part of the pre-operative evaluation. [facility] Past Medical History Medical History Chronic GERD Essential (primary) hypertension HTN (hypertension) Pure hypercholesterolemia Surgical History Surgical History Elective surgery Finger History of lung surgery Hx of right hemicolectomy robotic assisted right hemicolectomy by Dr. Mckee on 12/21/22. Family History Family History Sibling Patient's sister is in good health Patient's brother is in good health Mother Patient's mother is Father Patient's father is , Onset Age: 50 Social History Social History Smoking packs per day: 1 Smoking cigarettes per day: 20.0 Years smoked: 15 Smoking pack-years: 15.00 Smoking status: Former smoker Tobacco type: cigarettes Second hand tobacco smoke exposure: No Smoking end date: 12/23/90 Alcohol intake: current Drinks per week: 2 Alcohol use details: RARE Substance use: never Substance use type: marijuana Lack of Transportation: YES Lack of Food: Never True Current Housing: Decline to Answer Concerned About Future Housing: Decline to Answer Difficulty Paying Gas/Electric Bills: Decline to Answer Difficulty Paying for Meds: Decline to Answer Currently Unemployed: Decline to Answer Education: Decline to Answer Difficulty w/ Childcare or Family Care: Decline to Answer Living arrangements: alone Spiritual care concerns: No Anes - Eval Final PreProcedure Day of Procedure 01/29/23 09:08 Patient weight: normal Heart: regular rate and rhythm Lungs: clear to auscultation Airway: Mallampati scale class II Neurological: alert and oriented Last oral intake: >/= 8 hours ASA classification: III Emergent: no Anesthetic plan: proceed Anesthesia type and monitoring: general GIVS and standard monitoring Results Review: All pre-operative results and documents have been reviewed as part of the pre-operative evaluation. Informed Consent: The patient's anesthetic plan and its attendant risks and benefits were discussed with the patient/family/POA. Questions were solicited and answers provided to the satisfaction of the patient/family/POA.
[2023-01-29] MEDS: KETOROLAC 15 MG/ML VIAL (*BKC) IV PUSH (09:12)
[2023-01-29] MEDS: ceFAZolin 2 GM/D5W 50 ML 2 GM/50 ML BAG IVPB (09:31)
[2023-01-29] MEDS: BUPIVACAINE/EPINEPHRINE 0.25% 10 ML VIAL 20 ML INFILTRATE (09:42)
[2023-01-29] MEDS: HEPARIN SODIUM 5,000 UNITS/ML VIAL 5000 UNITS IRRIGATION (09:47)
[2023-01-29] MEDS: HEPARIN SODIUM, PORCINE 10,000 UNITS/10 ML VIAL 3000 UNITS IV PUSH (09:48)
[2023-01-29 10:12] VITALS: BP 99/53; PULSE 72; RESP 16; O2SAT 96
--- NOTE | 2023-01-29 10:13 | W.PM.PROC2 ---
Procedure Note - Detailed Date of Procedure 01/29/23 Pre-op Diagnosis colon cancer Post-op Diagnosis Same Procedure Performed placement right subclavian venous access device under fluroscopic guidance Surgeon Mame Mckee MD Anesthesia MAC and Local Indications 67 y/o M c colon cancer requiring access for chemotherapy Findings 1st stick R SCV Description of Procedure Patient was brought into the operating room and placed in the supine position. After adequate induction of mac anesthesia, the patient was prepped and draped in normal sterile fashion. Time-out was then done to verify the patient's identity, as well as the procedure being performed. I began by making a small incision in the right chest, I then gained access into the right subclavian vein with an 18 gauge needle. I then placed the guidewire into the vein and confirmed placement via fluoroscopic guidance. I then locally anesthetized the area in the right chest. I then enlarged the incision around the guidewire including making a subcutaneous pocket inferiorly to allow placement of the port itself. I then placed a dilating sheath over the guidewire into the right subclavian vein via sterile Seldinger technique. This was once again done and confirmed via fluoroscopic guidance. I then removed the dilator and the guidewire, now just leaving the sheath in the vein. I then fed the previously flushed catheter into the right subclavian vein under fluoroscopic guidance. At approximately 18 cm, the catheter was noted to be near the atrial caval junction. I then peeled away the sheath, now just leaving the catheter in the vein. I then was able to easily draw and flush from the catheter. The catheter was cut to fit and attached to the port itself. The port was placed into the previously made subcutaneous pocket and sutured in with 0 Ethibond suture. Final fluoroscopic view showed the termination of the catheter at the atrial caval junction with a nice smooth curvature back to the port itself. I was able to gain access to the port with a Bolanos needle and was able to easily draw and flush from the port. I then flushed 4 cc of a final heparin flush into the port. The incision was closed with 3 0 Vicryl suture in the subcutaneous tissue and the skin was closed with 4 O Monocryl subcuticular suture. Dermabond was then placed on wound. The patient tolerated the procedure well and will be sent to the recovery room in stable condition. Implants R SCV VAD Estimated Blood Loss 5 Drains No Packing No Pathology None sent Complications No immediate complications Condition Stable Disposition PACU [facility] Billing Surgery - Charge Forward: Surgery Billing
[2023-01-29 10:45] VITALS: BP 118/85; PULSE 64; RESP 16; O2SAT 100
[2023-01-29 11:11] VITALS: BP 113/93; PULSE 70; RESP 16
== END 2023-01-29 11:21 | disposition home or self-care (01) ==
PROVIDERS: PCP Internal Medicine; Visit Provider Surgery
PROC: (CPT 36561; principal; 2023-01-29 10:30)
DX: C18.9 Malignant neoplasm of colon, unspecified (principal); K21.9 Gastro-esophageal reflux disease without esophagitis; Z87.891 Personal history of nicotine dependence; K44.9 Diaphragmatic hernia without obstruction or gangrene; I10 Essential (primary) hypertension; E78.00 Pure hypercholesterolemia, unspecified; F12.90 Cannabis use, unspecified, uncomplicated
CPT/HCPCS: 36561; 77001; C1788; J0690; J1644; J1885; J2250; J2405; J2704; J3010; J7030; J7120

== ENCOUNTER 2023-04-13 09:32 | Inpatient (IN) | payer MEDICARE, SELFPAY ==
[2023-04-13] VITALS (22 sets, daily range): BP systolic 72–141; BP diastolic 50–85; PULSE 87–133; RESP 13–23; TEMP 36.4–39.5; O2SAT 95–100; BMI 21.1; BMI 19.9
--- NOTE | ~2023-04-13 | XR_ITS ---
EXAMINATION: XR chest 1V portable DATE: 04/13/2023 11:25 INDICATION: Neutropenic fever TECHNIQUE: frontal view of the chest was obtained. COMPARISON: Chest radiograph dated 01/29/2023 FINDINGS: Again seen is a currently accessed right subclavian central venous port catheter with distal tip in t he midsuperior vena cava. Again noted is undulation the course of the catheter where it passes betwee n the first rib and clavicle but without evident compression of the catheter. Lungs remain clear with no focal airspace opacities, pulmonary edema, pleural effusion or pneumothorax. Arch size is normal. Small hiatal hernia. IMPRESSION: 1. No acute cardiopulmonary disease. Reviewed, dictated and finalized at location A.
--- NOTE | 2023-04-13 09:55 | ECG_ITS ---
Measurements Intervals [place] Rate: 110 P: 8 CT: 124 QRS: 35 QRSD: 85 T: 56 QT: 303 QTc: 410 Interpretive Statements SINUS TACHYCARDIA ABNORMAL RHYTHM ECG COMPARED TO ECG 12/12/2022 12:38:15 SINUS TACHYCARDIA NOW PRESENT Electronically Signed On 04-13-2023 13:35:21 CDT by Bhavin Pereyra MD
[2023-04-13 10:21] LABS: Hematocrit 31.5 % (42.0-52.0); Hemoglobin 10.7 g/dL (14.0-18.0); Immature Platelet Fraction Pct 3.1 % (0.9-11.2); Lymphocytes Absolute Auto 0.39 K/mm3 (0.9-3.2); Lymphocytes Percent Auto 37.9 % (18.3-44.2); Mean Corpuscular Hemoglobin 29.7 pg (26-34); Mean Corpuscular Volume 87.5 fl (80-100); Mean Platelet Volume 10.1 fl (7.4-10.4); Monocytes Absolute Auto 0.3 K/mm3 (0.1-0.6); Monocytes Percent Auto 25.2 % (2.6-8.5); Neutrophils Absolute Auto 0.4 K/mm3 (1.3-6.7); Neutrophils Percent Auto 36.9 % (45.5-73.1); Platelet Count Result 63 k/mm3 (150-375); Red Cell Distribution Width 19.5 % (11.5-14.5)
[2023-04-13] MEDS: SODIUM CHLORIDE 0.9% IV 1,000 ML 999 ML IV CONT ×2 (10:21→11:44)
--- NOTE | 2023-04-13 10:25 | ED.GENADULT ---
HPI - General Adult General Chief complaint: Weakness Stated complaint: weakness, fall Time Seen by Provider: 04/13/23 09:48 History of Present Illness HPI narrative: 67-year-old male presented to the ED for evaluation of lightheaded dizziness and dehydration. Patient is currently undergoing treatment for colon cancer. Patient had surgery by Dr. Mckee approximately 4 months ago. Patient has been undergoing chemotherapy by Dr. Santos. Patient's last treatment was approximately 1.5 weeks ago. Patient reports over the last few days he has had increasing fatigue lightheaded dizziness. Patient does report decreased p.o. intake and increased generalized weakness. Related Data Home Medications Medication Instructions Recorded Confirmed multivitamin 1 tablet PO DAILY 01/10/23 04/13/23 lisinopril 20 mg tablet 20 mg PO QAM 01/25/23 04/13/23 iron 40 mg capsule 40 mg PO DAILY 02/06/23 04/13/23 pantoprazole 40 mg tablet,delayed 40 mg PO DAILY 04/04/23 04/13/23 release (Protonix) ondansetron HCl 8 mg tablet 8 mg PO DAILY PRN Nausea 04/13/23 04/13/23 Allergies Allergy/AdvReac Type Severity Reaction Status Date / Time Penicillins Allergy Mild Hives Verified 04/13/23 13:28 Review of Systems Review of Systems: All systems reviewed & are unremarkable except as noted in HPI and below PMFSH Past Medical History Medical History Chronic GERD Essential (primary) hypertension HTN (hypertension) Pure hypercholesterolemia Surgical History Surgical History Elective surgery Finger History of lung surgery Hx of right hemicolectomy robotic assisted right hemicolectomy by Dr. Mckee on 12/21/22. Family History Family History Sibling Patient's sister is in good health Patient's brother is in good health Mother Patient's mother is Father Patient's father is , Onset Age: 50 Social History Social History Smoking packs per day: 1 Smoking cigarettes per day: 20.0 Years smoked: 20 Smoking pack-years: 20.00 Smoking status: Former smoker Tobacco type: cigarettes Second hand tobacco smoke exposure: No Smoking end date: 12/23/90 Alcohol intake: former Drinks per week: 2 Alcohol use details: RARE Substance use: never Substance use type: marijuana Other substance usage details: vapes 2- 3 times weekly Lack of Transportation: No Lack of Food: Never True Current Housing: I Have Housing Concerned About Future Housing: No Difficulty Paying Gas/Electric Bills: No Difficulty Paying for Meds: No Currently Unemployed: No Education: High School Diploma/GED Difficulty w/ Childcare or Family Care: No Living arrangements: alone Spiritual care concerns: No Exam Narrative: APPEARANCE: Well appearing, no pain, no distress, well-nourished. HEAD: normocephalic, atraumatic. EYES: PERRLA/EOMI, conjunctivae clear. NOSE: Normal no drainage NECK: Supple. No adenopathy, no masses. RESPIRATORY: Airway patent, respirations nonlabored. Clear to auscultation bilaterally, no rales, rhonchi, wheezing. CARDIOVASCULAR: Regular rate and rhythm without murmurs rubs or gallops. ABDOMINAL: Soft, nontender, nondistended, normal bowel sounds MUSCULOSKELETAL: Moves all extremities. Strength/ROM intact, No edema, No calf tenderness. NEURO: Alert. Cranial nerves II through XII intact. Grossly intact SKIN: Warm, dry. Normal Color Course Course Emergency Course: 67-year-old male presented the emergency department for evaluation of increased generalized weakness. Patient was found to be febrile and neutropenic. Blood cultures were ordered and patient was started on cefepime. Oncology was consulted and patient was admitted to the hospitalist. Patient and f
[2023-04-13 10:28] LABS: Alanine Aminotransferase 48 U/L (6-50); Albumin Level 3.8 g/dL (3.5-5.1); Alkaline Phosphatase 92 U/L (38-126); Anion Gap 11 mmol/L (8-16); Aspartate Amino Transferase 57 U/L (17-59); Bilirubin,Total 1.1 mg/dL (0.2-1.3); Blood Urea Nitrogen 23 mg/dL (9-20); Calcium 9.6 mg/dL (8.4-10.2); Carbon Dioxide 20 mmol/L (22-30); Chloride 97 mmol/L (98-107); Estimated CRCL calculation 49 ml/min; Estimated Glomerular Filt Rate > 60; Glucose 132 mg/dL (65-110); Lactic Acid Reflex 2.7 mmol/L (0.7-2.0); Potassium 3.9 mmol/L (3.4-5.0); Sodium 128 mmol/L (137-145)
[2023-04-13 10:29] LABS: INR 1.2; Prothrombin Time 15.4 Seconds (11.1-14.7)
[2023-04-13 11:00] LABS: Influenza A QL RT-PCR Negative (Negative); Influenza B QL RT-PCR Negative (Negative); RSV RNA, RT-PCR Negative (Negative); SARS-CoV-2 RNA PCR Negative (Negative)
[2023-04-13] MEDS: CEFEPIME 2 GM/NS 50 ML 2 GM/50 ML BAG IVPB ×2 (11:43→21:04)
--- NOTE | 2023-04-13 12:21 | ADMGEN ---
This patient, Leighann Thomas, was admitted to IMU Room 201-01. Patient/family oriented to hospital policies and general routines including ID bracelet, bed and alarms, visiting hours, pain management, procedures, bathroom and other care routines, personal items, smoking policy, room service/diet, and visiting hours. Information on how to activate the Rapid Response Team has been discussed. Patient/Family are encouraged to report perceived risks to care and to ask questions if they do not understand what they are told or what they should do.
[2023-04-13 12:42] LABS: MRSA (PCR) NOT DETECTED (NOT DETECTE)
[2023-04-13 13:16] LABS: Reflex Lactic Acid Yes or No Add Lactic
[2023-04-13 14:28] LABS: Lactic Acid 1.8 mmol/L (0.7-2.0)
[2023-04-13] MEDS: LACTATED RINGERS 1,000 ML 100 ML IV CONT (16:23)
[2023-04-13] MEDS: ACETAMINOPHEN 325 MG TABLET 650 MG PO (16:24)
[2023-04-13] MEDS: ONDANSETRON INJ 4 MG/2 ML VIAL 8 MG IV PUSH (16:24)
--- NOTE | 2023-04-13 16:45 | PDONCCN ---
HPI - Date of Consult Date/Time: 04/13/23 16:45 Requesting Physician: Eligio Dimas MD Primary Care Provider: Santos Faria, DO - Consult Narrative Reason for consult: Colon cancer with pancytopenia Narrative: Leighann Thomas is a 67 year old male with history of stage IIIC colon cancer status post right-sided hemicolectomy on December 21, 2022. Patient started adjuvant chemotherapy with FOLFOX regimen on February 05. He received cycle 4 of chemotherapy on April 02. He came into the hospital with generalized weakness tiredness and fatigue along with lightheadedness and dizziness. Labs showed WBC of 1.0 with ANC of 400 [place] hemoglobin [place] [id number]. He does have some diarrhea. He has some low-grade fever. Denies any cough and sore throat. Complaining of some back pain. Patient is generally tired and fatigued. Chest x-ray showed no acute cardiopulmonary process. Review of Systems - Review of Systems All systems reviewed & are unremarkable except as noted in [facility] and [facility] Medical History: Medical History (Last Reviewed 01/29/23 @ 09:08 by Homer Davis MD) Chronic GERD Essential (primary) hypertension HTN (hypertension) Pure hypercholesterolemia Surgical History: Surgical History (Last Reviewed 01/29/23 @ 09:08 by Homer Davis MD) Elective surgery Finger History of lung surgery Hx of right hemicolectomy robotic assisted right hemicolectomy by Dr. Mckee on 12/21/22. Family History: Family History (Last Reviewed 01/29/23 @ 09:08 by Homer Davis MD) Sibling Patient's sister is in good health Patient's brother is in good health Mother Patient's mother is Father Patient's father is , Onset Age: 50 - Social History Social History: Social History (Last Reviewed 01/29/23 @ 09:08 by Homer Davis MD) Alcohol Use: Alcohol intake: former Drinks per week: 2 Alcohol use details: RARE Substance Use: Substance use: never Substance use type: marijuana Other substance usage details: vapes 2- 3 times weekly Others: Spiritual care concerns: No Living Arrangements: Living arrangements: alone Smoking Status: Smoking status: Former smoker Tobacco type: cigarettes Second hand tobacco smoke exposure: No Smoking end date: 12/23/90 Approximate Smoking End Date: 1989 Smoking Pack-years: Smoking packs per day: 1 Smoking cigarettes per day: 20.0 Years smoked: 20 Smoking pack-years: 20.00 Social Determinants of Health: Has the Lack of Transportation Kept You From Medical Appointments or From Getting Medications?: No Within the Past 12 Months, Were You Worried Whether Your Food Would Run Out Before You Got Money to Buy More?: Never True What is Your Housing Situation Today?: I Have Housing Are You Worried That in the Next 2 Months, You May Not Have Your Own Housing to Live In?: No Do You Have Trouble Paying Your Heating Or Electricity Bill?: No Do You Have Trouble Paying For Medicines?: No Are You Currently Unemployed and Looking for Work?: No Highest Level of Education Completed: High School Diploma/GED Do You Have Trouble With Childcare or the Care of a Family Member?: No Exam - Vital Signs Vital Signs - 24 hr 04/13/23 09:34 04/13/23 09:41 04/13/23 09:46 Temperature 37.5 C Pulse Rate 133 H 115 H 118 H Respiratory Rate 18 16 16 Blood Pressure 72/50 L 91/66 L 100/85 Pulse Oximetry 99 99 99 Oxygen Delivery Room Air 04/13/23 10:22 04/13/23 10:31 04/13/23 10:46 Temperature Pulse Rate 112 H 109 H 108 H Respiratory Rate 23 H 15 13 Blood Pressure 97/64 L 106/63 104/62 Pulse Oximetry 100 99 100 Oxygen Delivery 04/13/23 10:52 04/13/23 11:01 04/13/23 11:16 Temperature 38.0 C H Pulse Rate 110 H 107 H Respiratory Rate 13 18 Blood Pressure 102/73 98/65 L Pulse Oximetry 100 100
[2023-04-13 16:50] LABS: Appearance Urine Cloudy (Clear); Bacteria Urine None Seen /hpf; Bilirubin Urine 1+ (Negative); Blood Urine Negative (Negative); Color Urine Dark Yellow (Yellow); Glucose Urine UA Negative (Negative); Ketones Urine Trace mg/dL (Negative); Leukocyte Esterase Ur Trace LEU/UL (Negative); Nitrate Urine Negative (Negative); Non Pathogenic Casts 0-2; Protein Urine 1+ mg/dL (Negative); RBC Urine 0-2 /hpf (0-2); Specific Grav Ur 1.025 (1.001-1.035); Squamous Epithelial Cell Urine Occasional /hpf (Few); WBC Urine 0-5 /hpf; pH Urine 5.5 (5.0-9.0)
[2023-04-13 16:57] LABS: Add Urine Microscopic? YES
[2023-04-13 19:10] LABS: Iron 17 ug/dL (49-181)
[2023-04-13 19:19] LABS: Percent Iron Saturation 5 % (20-50)
[2023-04-13 20:18] LABS: Folic Acid > 20.0 ng/mL (2.76->20)
--- NOTE | 2023-04-13 20:24 | PM.IMHP ---
H&P: HPI History of Present Illness Date/Time: 04/13/23 20:24 Chief Complaint: Fever Narrative: 67-year-old male presents here with weakness, multiple falls, fever with past medical history of colon cancer (last chemo 1.5w ago), GERD, HTN, and HLD. Patient reports that yesterday he began feeling increasingly weak, having difficulty with balance, dizziness, and an increase in falls. patient's 1st fall was around 1:00 a.m. yesterday, 2nd fall was around 3:00 a.m., and 3rd fall was around 8:00 a.m.. Two of the 3 falls were described as syncopal events with presyncope feeling and waking up on floor. 1 fall patient describes staggering into the miller and eventually ending up on the ground due to instability. unclear if patient hit his head. However patient has no outward signs of trauma, no focal areas of tenderness or pain, and no spinal tenderness or bruising on his back. Patient was initially concerned there may be some bruising to his posterior trunk. patient also endorsing decreased PO intake in the last day. +chills/rigors and N/V that started today. does not endorse nausea currently. Some mild diarrhea that started Sunday, 1 episode per day and non-bloody. Review of Systems Review of Systems: All systems reviewed & are unremarkable except as noted in HPI and below PMFSH Past Medical History Medical History (Updated 04/13/23 @ 21:43 by Linda Browning APRN) Chronic GERD Colon adenocarcinoma Diverticulosis Essential (primary) hypertension Gallstones HTN (hypertension) Hyperlipidemia Surgical History Surgical History (Updated 04/13/23 @ 16:48 by Abhinav Santos MD) Elective surgery Finger History of lung surgery Hx of right hemicolectomy robotic assisted right hemicolectomy by Dr. Mckee on 12/21/22. Family History Family History Sibling Patient's sister is in good health Patient's brother is in good health Mother Patient's mother is Father Patient's father is , Onset Age: 50 Social History Social History (Updated 04/13/23 @ 21:44 by Linda Browning APRN) Social History: Patient currently lives alone. Surrogate decision maker: Amos Thomas, daughter. Code status: Full Code. Smoking packs per day: 1 Smoking cigarettes per day: 20.0 Years smoked: 20 Smoking pack-years: 20.00 Smoking status: Former smoker Tobacco type: cigarettes Second hand tobacco smoke exposure: No Smoking end date: 12/23/90 Alcohol intake: former Drinks per week: 2 Alcohol use details: RARE Substance use: never Substance use type: marijuana Other substance usage details: vapes 2- 3 times weekly Lack of Transportation: No Lack of Food: Never True Current Housing: I Have Housing Concerned About Future Housing: No Difficulty Paying Gas/Electric Bills: No Difficulty Paying for Meds: No Currently Unemployed: No Education: High School Diploma/GED Difficulty w/ Childcare or Family Care: No Living arrangements: alone Spiritual care concerns: No Meds Home Medications and Allergies Home Medications Medication Instructions Recorded Confirmed Type multivitamin 1 tablet PO DAILY 01/10/23 04/13/23 History lisinopril 20 mg tablet 20 mg PO QAM 01/25/23 04/13/23 History iron 40 mg capsule 40 mg PO DAILY 02/06/23 04/13/23 History pantoprazole 40 mg tablet,delayed 40 mg PO DAILY 04/04/23 04/13/23 History release (Protonix) ondansetron HCl 8 mg tablet 8 mg PO DAILY PRN Nausea 04/13/23 04/13/23 History Allergies Allergy/AdvReac Type Severity Reaction Status Date / Time Penicillins Allergy Mild Hives Verified 04/13/23 13:28 Vital Signs Vital Signs - 24 hr 04/13/23 09:34 04/13/23 09:41 04/13/23 09:46 Temperature 99.5 F Pulse Rate 133 H 115 H 118 H Respiratory Rate 18 16 16 Blood Pressure 72/50 L 91/66 L 100/85 Pulse Oximetry 99 99 99 Oxygen Del
[2023-04-13] MEDS: PANTOPRAZOLE 40 MG TABLET PO (21:12)
[2023-04-14] VITALS (15 sets, daily range): BP systolic 106–139; BP diastolic 60–72; PULSE 74–101; RESP 16–18; TEMP 36.2–37.7; O2SAT 97–99
[2023-04-14] MEDS: LACTATED RINGERS 1,000 ML 100 ML IV CONT (04:07)
[2023-04-14 06:24] LABS: Hematocrit 27.6 % (42.0-52.0); Hemoglobin 9.4 g/dL (14.0-18.0); Immature Platelet Fraction Pct 3.4 % (0.9-11.2); Lymphocytes Absolute Auto 0.28 K/mm3 (0.9-3.2); Lymphocytes Percent Auto 39.4 % (18.3-44.2); Mean Corpuscular HGB Conc 34.1 g/dl (32-36); Mean Corpuscular Volume 88.2 fl (80-100); Mean Platelet Volume 11.2 fl (7.4-10.4); Monocytes Absolute Auto 0.3 K/mm3 (0.1-0.6); Monocytes Percent Auto 39.4 % (2.6-8.5); Neutrophils Absolute Auto 0.2 K/mm3 (1.3-6.7); Neutrophils Percent Auto 21.2 % (45.5-73.1); Platelet Count Result 57 k/mm3 (150-375); Red Blood Count 3.13 M/mm3 (4.6-6.20); Red Cell Distribution Width 19.5 % (11.5-14.5)
[2023-04-14 06:29] LABS: White Blood Count 0.7 K/mm3 (4.5-10.0)
[2023-04-14 06:32] LABS: Anion Gap 3 mmol/L (8-16); Blood Urea Nitrogen 11 mg/dL (9-20); Calcium 4.3 mg/dL (8.4-10.2); Carbon Dioxide 11 mmol/L (22-30); Chloride 120 mmol/L (98-107); Estimated CRCL calculation 134 ml/min; Estimated Glomerular Filt Rate > 60; Glucose 64 mg/dL (65-110); Hypochromasia 2+ (NORMAL); Magnesium 0.8 mg/dL (1.6-2.3); Platelet Estimate Decreased (Adequate); Potassium < 2.0 mmol/L (3.4-5.0); Sodium 134 mmol/L (137-145)
[2023-04-14 06:33] LABS: Atypical Lymphocytes Present; Ovalocytes 1+ (NORMAL)
[2023-04-14 06:34] LABS: Schistocytes Rare (NORMAL)
[2023-04-14] MEDS: MAGNESIUM SULF 2 GM/WATER 50ML 2 GM/50 ML BAG IVPB (06:54)
--- NOTE | 2023-04-14 08:04 | PM.IMPN ---
Progress Note: A&P Assessment and Plan (1) Fever and neutropenia: Code(s): D70.9 - Neutropenia, unspecified; R50.81 - Fever presenting with conditions classified elsewhere Status: Acute Assessment and Plan: Neutropenic fever secondary to colon cancer on chemotherapy with pancytopenia, appreciate oncology consultation Follow-up blood and urine cultures Potential sources UTI Continue reverse isolation precautions Vancomycin and cefepime initiated 04/13 (2) Acute hypotension: Code(s): I95.9 - Hypotension, unspecified Status: Acute Assessment and Plan: Likely secondary to sepsis versus neutropenic fever, resolved at this time, monitor Continue home lisinopril (3) Tachycardia: Code(s): R00.0 - Tachycardia, unspecified Status: Acute Assessment and Plan: As above, resolving (4) General weakness: Code(s): R53.1 - Weakness Status: Acute Assessment and Plan: Multifactorial, appreciate PT/OT eval, continue supportive care (5) Colon adenocarcinoma: Code(s): C18.9 - Malignant neoplasm of colon, unspecified Status: Acute Assessment and Plan: Danielle has seen patient, see above for his recommendations currently experiencing diarrhea since Sunday, 1 episode per day. Likely reaction to chemo. Continue to monitor. (6) Anemia: Code(s): D64.9 - Anemia, unspecified Status: Acute Assessment and Plan: Likely secondary to malignancy, continue home iron supplementation, monitor Plan Chronic Conditions - lisinopril held due to hypotension Diet: regular diet with supplementation GI Prophylaxis: pantoprazole daily DVT Prophylaxis: SCDs Lines: pIV Code Status: Full Code Subjective Date/time seen: 04/14/23 08:04 Interval history: 67-year-old male with history of colon cancer currently receiving chemo, last chemo 1 and half weeks ago, GERD, hypertension and hyperlipidemia is presenting with weakness, falls and neutropenic fever. No overnight events noted. No chest pain or shortness of breath. No nausea, vomiting or diarrhea. Tmax 100F o/n, 100.3 yesterday afternoon. Patient feels a little tired, weak, about the same as yesterday or slightly better. Review of Systems Review of Systems: 12 point review of systems was assessed and was negative except as noted in the HPI Exam Narrative: General: No acute distress, alert and oriented per baseline HEENT: Atraumatic, normocephalic, mucous membranes moist CV: Regular rate and rhythm, S1, S2 Lungs: Clear to auscultation bilaterally, no rales or crackles noted, no wheezes, good air entry Abdomen: Soft, nontender, nondistended Extremities: Normal to inspection Skin: No rashes noted, no lesions or wounds seen Psych: Euthymic, normal affect Objective Data Vital Signs Vital Signs: Vital Signs - 24 hr 04/13/23 09:34 04/13/23 09:41 04/13/23 09:46 Temperature 99.5 F Pulse Rate 133 H 115 H 118 H Respiratory Rate 18 16 16 Blood Pressure 72/50 L 91/66 L 100/85 Pulse Oximetry 99 99 99 Oxygen Delivery Room Air 04/13/23 10:22 04/13/23 10:31 04/13/23 10:46 Temperature Pulse Rate 112 H 109 H 108 H Respiratory Rate 23 H 15 13 Blood Pressure 97/64 L 106/63 104/62 Pulse Oximetry 100 99 100 Oxygen Delivery 04/13/23 10:52 04/13/23 11:01 04/13/23 11:16 Temperature 100.4 F H Pulse Rate 110 H 107 H Respiratory Rate 13 18 Blood Pressure 102/73 98/65 L Pulse Oximetry 100 100 Oxygen Delivery 04/13/23 11:46 04/13/23 12:01 04/13/23 12:21 Temperature 98.0 F Pulse Rate 106 H 106 H Respiratory Rate 15 17 20 Blood Pressure 89/63 L 95/69 L 141/58 H Pulse Oximetry 100 99 100 Oxygen Delivery 04/13/23 14:00 04/13/23 12:19 04/13/23 15:22 Temperature 103.1 F H Pulse Rate 101 H 105 H Respiratory Rate 20 Blood Pressure 108/56 L Pulse Oximetry 100 95 Oxygen Delivery Room Air 04/13/23
[2023-04-14] MEDS: KCL 40 MEQ/WATER 100 ML 100 ML 25 ML IVPB (08:32)
[2023-04-14] MEDS: MULTIVITAMINS THERAPEUTIC TAB (*BKC) 1 TABLET PO (08:34)
[2023-04-14] MEDS: FERROUS SULFATE DRIED 142 MG TABCR PO (08:34)
[2023-04-14 08:59] LABS: Alanine Aminotransferase 20 U/L (6-50); Albumin Level 1.3 g/dL (3.5-5.1); Alkaline Phosphatase 36 U/L (38-126); Aspartate Amino Transferase 23 U/L (17-59); Bilirubin,Total 0.5 mg/dL (0.2-1.3)
[2023-04-14] MEDS: PANTOPRAZOLE 40 MG TABLET PO (11:37)
[2023-04-14] MEDS: FILGRASTIM-SNDZ 480 MCG/0.8 ML SYRINGE SUB-Q (11:37)
[2023-04-14] MEDS: VANCOMYCIN 1,250 MG/NS 250 ML 1,250 MG/250 ML BAG 166.67 MG IVPB (13:01)
[2023-04-14] MEDS: CEFEPIME 2 GM/NS 50 ML 2 GM/50 ML BAG IVPB ×2 (13:02→22:18)
[2023-04-14] MEDS: POTASSIUM CHLORIDE INJ 40 MEQ in SODIUM CHLORIDE 0.9% IV 500 ML 130 MEQ IVPB ×2 (13:06→16:51)
[2023-04-14 13:51] LABS: Magnesium 2.2 mg/dL (1.6-2.3)
[2023-04-14] MEDS: POTASSIUM CHLORIDE 20 MEQ ER TABLET 40 MEQ PO (16:48)
[2023-04-14 17:13] LABS: Anion Gap 4 mmol/L (8-16); Blood Urea Nitrogen 21 mg/dL (9-20); Calcium 8.8 mg/dL (8.4-10.2); Carbon Dioxide 18 mmol/L (22-30); Chloride 106 mmol/L (98-107); Estimated CRCL calculation 72 ml/min; Estimated Glomerular Filt Rate > 60; Glucose 97 mg/dL (65-110); Potassium 4.2 mmol/L (3.4-5.0); Sodium 128 mmol/L (137-145)
[2023-04-15] VITALS (15 sets, daily range): BP systolic 112–124; BP diastolic 53–74; PULSE 78–98; RESP 16–21; TEMP 36.4–37.6; O2SAT 94–100
[2023-04-15] MEDS: LOPERAMIDE HCL 2 MG CAPSULE PO ×2 (04:03→09:56)
[2023-04-15] MEDS: LACTATED RINGERS 1,000 ML 100 ML IV CONT ×2 (06:56→20:33)
[2023-04-15] MEDS: FILGRASTIM-SNDZ 480 MCG/0.8 ML SYRINGE SUB-Q (09:55)
[2023-04-15] MEDS: lisinopriL 20 MG TABLET PO (09:56)
[2023-04-15] MEDS: PANTOPRAZOLE 40 MG TABLET PO (09:56)
[2023-04-15] MEDS: MULTIVITAMINS THERAPEUTIC TAB (*BKC) 1 TABLET PO (09:58)
[2023-04-15] MEDS: CEFEPIME 2 GM/NS 50 ML 2 GM/50 ML BAG IVPB ×2 (09:58→20:33)
[2023-04-15 10:41] LABS: Basophils Percent Auto 0.7 % (0.2-1.2); Eosinophils Absolute Auto 0.1 K/mm3 (0-0.3); Eosinophils Percent Auto 5.1 % (0-4.4); Hematocrit 24.9 % (42.0-52.0); Hemoglobin 8.3 g/dL (14.0-18.0); Immature Platelet Fraction Pct 3.1 % (0.9-11.2); Lymphocytes Absolute Auto 0.55 K/mm3 (0.9-3.2); Lymphocytes Percent Auto 40.4 % (18.3-44.2); Mean Corpuscular HGB Conc 33.3 g/dl (32-36); Mean Corpuscular Volume 89.9 fl (80-100); Mean Platelet Volume 10.3 fl (7.4-10.4); Monocytes Absolute Auto 0.6 K/mm3 (0.1-0.6); Monocytes Percent Auto 41.9 % (2.6-8.5); Neutrophils Absolute Auto 0.2 K/mm3 (1.3-6.7); Neutrophils Percent Auto 11.9 % (45.5-73.1); Platelet Count Result 66 k/mm3 (150-375); Red Blood Count 2.77 M/mm3 (4.6-6.20); Red Cell Distribution Width 20.2 % (11.5-14.5)
[2023-04-15 10:59] LABS: Alanine Aminotransferase 35 U/L (6-50); Albumin Level 2.8 g/dL (3.5-5.1); Alkaline Phosphatase 65 U/L (38-126); Anion Gap 7 mmol/L (8-16); Aspartate Amino Transferase 37 U/L (17-59); Bilirubin,Total 0.6 mg/dL (0.2-1.3); Blood Urea Nitrogen 16 mg/dL (9-20); Calcium 8.8 mg/dL (8.4-10.2); Carbon Dioxide 16 mmol/L (22-30); Chloride 108 mmol/L (98-107); Estimated CRCL calculation 80 ml/min; Estimated Glomerular Filt Rate > 60; Glucose 98 mg/dL (65-110); Magnesium 2.1 mg/dL (1.6-2.3); Potassium 3.4 mmol/L (3.4-5.0); Sodium 131 mmol/L (137-145)
[2023-04-15 11:01] LABS: White Blood Count 1.4 K/mm3 (4.5-10.0)
[2023-04-15 11:04] LABS: Anisocytosis 2+ (NORMAL); Burr Cells 1+ (NORMAL); Platelet Estimate Decreased (Adequate); Poikilocytosis 1+ (NORMAL); Schistocytes None Seen (NORMAL)
[2023-04-15 11:10] LABS: Vancomycin Trough 5.8 ug/mL (10.0-20.0)
[2023-04-15] MEDS: FERROUS SULFATE DRIED 142 MG TABCR PO (11:20)
--- NOTE | 2023-04-15 13:04 | PM.IMPN ---
Progress Note: A&P Assessment and Plan (1) Fever and neutropenia: Code(s): D70.9 - Neutropenia, unspecified; R50.81 - Fever presenting with conditions classified elsewhere Status: Acute Assessment and Plan: Neutropenic fever secondary to colon cancer on chemotherapy with pancytopenia, appreciate oncology consultation Follow-up blood culture, NGTD, and urine cultures, pending Potential sources UTI Continue reverse isolation precautions Vancomycin and cefepime initiated 04/13 (2) Acute hypotension: Code(s): I95.9 - Hypotension, unspecified Status: Acute Assessment and Plan: Likely secondary to sepsis versus neutropenic fever, resolved at this time, monitor Continue home lisinopril (3) Tachycardia: Code(s): R00.0 - Tachycardia, unspecified Status: Acute Assessment and Plan: As above, resolving (4) General weakness: Code(s): R53.1 - Weakness Status: Acute Assessment and Plan: Multifactorial, appreciate PT/OT eval, continue supportive care (5) Colon adenocarcinoma: Code(s): C18.9 - Malignant neoplasm of colon, unspecified Status: Acute Assessment and Plan: Danielle has seen patient, see above for his recommendations currently experiencing diarrhea since Sunday, 1 episode per day. Likely reaction to chemo. Continue to monitor. (6) Anemia: Code(s): D64.9 - Anemia, unspecified Status: Acute Assessment and Plan: Likely secondary to malignancy, continue home iron supplementation, monitor Plan Chronic Conditions - lisinopril held due to hypotension Diet: regular diet with supplementation GI Prophylaxis: pantoprazole daily DVT Prophylaxis: SCDs Lines: pIV Code Status: Full Code Subjective Date/time seen: 04/15/23 13:04 Interval history: 67-year-old male with history of colon cancer currently receiving chemo, last chemo 1 and half weeks ago, GERD, hypertension and hyperlipidemia is presenting with weakness, falls and neutropenic fever. No overnight events noted. No chest pain or shortness of breath. No nausea, vomiting or diarrhea. No fevers or chills. T-max of 98.6?. Review of Systems Review of Systems: 12 point review of systems was assessed and was negative except as noted in the HPI Exam Narrative: General: No acute distress, alert and oriented per baseline HEENT: Atraumatic, normocephalic, mucous membranes moist CV: Regular rate and rhythm, S1, S2 Lungs: Clear to auscultation bilaterally, no rales or crackles noted, no wheezes, good air entry Abdomen: Soft, nontender, nondistended Extremities: Normal to inspection Skin: No rashes noted, no lesions or wounds seen Psych: Euthymic, normal affect Objective Data Vital Signs Vital Signs: Vital Signs - 24 hr 04/14/23 14:00 04/14/23 16:00 04/14/23 16:00 Temperature Pulse Rate 90 88 88 Respiratory Rate 18 Blood Pressure Pulse Oximetry 97 Oxygen Delivery Room Air 04/14/23 20:00 04/14/23 22:48 04/14/23 20:00 Temperature 97.5 F L 97.5 F L Pulse Rate 91 87 92 Respiratory Rate 16 16 Blood Pressure 129/64 106/60 Pulse Oximetry 99 98 Oxygen Delivery 04/14/23 22:00 04/15/23 00:00 04/15/23 02:00 Temperature Pulse Rate 74 85 87 Respiratory Rate Blood Pressure Pulse Oximetry Oxygen Delivery 04/15/23 04:00 04/15/23 04:38 04/14/23 21:26 Temperature 97.6 F Pulse Rate 86 84 Respiratory Rate 16 Blood Pressure 118/61 Pulse Oximetry 99 97 Oxygen Delivery 04/15/23 06:00 04/15/23 07:50 04/15/23 08:00 Temperature 97.6 F Pulse Rate 82 92 95 Respiratory Rate 17 Blood Pressure 124/74 Pulse Oximetry 98 Oxygen Delivery 04/15/23 11:56 04/15/23 08:00 Temperature 98.6 F Pulse Rate 89 Respiratory Rate 21 H Blood Pressure 116/65 Pulse Oximetry 100 Oxygen Delivery Room Air Intake/Output Intake/Output: Intake &
[2023-04-15] MEDS: VANCOMYCIN 1,250 MG/NS 250 ML 1,250 MG/250 ML BAG 166.67 MG IVPB (13:05)
[2023-04-15] MEDS: chlorproMAZINE HCL 25 MG TABLET PO (15:52)
[2023-04-16] VITALS (16 sets, daily range): BP systolic 109–123; BP diastolic 52–72; PULSE 72–115; RESP 14–18; TEMP 36.4–37.6; O2SAT 96–98
[2023-04-16] MEDS: VANCOMYCIN 1,250 MG/NS 250 ML 1,250 MG/250 ML BAG 166.67 MG IVPB (00:29)
[2023-04-16 05:04] LABS: Basophils Percent Auto 0.7 % (0.2-1.2); Eosinophils Absolute Auto 0.1 K/mm3 (0-0.3); Eosinophils Percent Auto 4.8 % (0-4.4); Immature Granulocyte Absolute 0.02 K/mm3 (0.00-0.031); Immature Granulocyte Percent A 1.4 % (0-0.5); Immature Platelet Fraction Pct 2.2 % (0.9-11.2); Lymphocytes Absolute Auto 0.45 K/mm3 (0.9-3.2); Lymphocytes Percent Auto 30.6 % (18.3-44.2); Mean Corpuscular HGB Conc 32.3 g/dl (32-36); Mean Corpuscular Hemoglobin 29.5 pg (26-34); Mean Corpuscular Volume 91.5 fl (80-100); Mean Platelet Volume 9.1 fl (7.4-10.4); Monocytes Absolute Auto 0.5 K/mm3 (0.1-0.6); Neutrophils Absolute Auto 0.5 K/mm3 (1.3-6.7); Neutrophils Percent Auto 30.5 % (45.5-73.1); Nucleated Red Blood Cells Perc 1.4 % (0.0-0.2); Platelet Count Result 50 k/mm3 (150-375); Red Blood Count 1.76 M/mm3 (4.6-6.20); Red Cell Distribution Width 20.3 % (11.5-14.5)
[2023-04-16 06:55] LABS: Hematocrit 16.1 % (42.0-52.0); Hemoglobin 5.2 g/dL (14.0-18.0)
[2023-04-16 06:57] LABS: White Blood Count 1.5 K/mm3 (4.5-10.0)
[2023-04-16 07:01] LABS: Burr Cells 1+ (NORMAL); Crenated RBC 1+ (NORMAL); Dohle Bodies Present (NORMAL); Platelet Estimate Decreased (Adequate); Toxic Granulation Present (NORMAL)
[2023-04-16 07:02] LABS: Schistocytes None Seen (NORMAL)
[2023-04-16 07:16] LABS: Alanine Aminotransferase 31 U/L (6-50); Albumin Level 2.3 g/dL (3.5-5.1); Alkaline Phosphatase 63 U/L (38-126); Anion Gap 1 mmol/L (8-16); Aspartate Amino Transferase 37 U/L (17-59); Bilirubin,Total 0.5 mg/dL (0.2-1.3); Blood Urea Nitrogen 11 mg/dL (9-20); Calcium 8.3 mg/dL (8.4-10.2); Carbon Dioxide 20 mmol/L (22-30); Chloride 109 mmol/L (98-107); Estimated CRCL calculation 80 ml/min; Estimated Glomerular Filt Rate > 60; Glucose 86 mg/dL (65-110); Sodium 130 mmol/L (137-145)
[2023-04-16] MEDS: CEFEPIME 2 GM/NS 50 ML 2 GM/50 ML BAG IVPB ×2 (09:20→20:39)
[2023-04-16] MEDS: LACTATED RINGERS 1,000 ML 100 ML IV CONT ×2 (09:22→22:58)
[2023-04-16] MEDS: PANTOPRAZOLE 40 MG TABLET PO (09:27)
[2023-04-16] MEDS: FERROUS SULFATE DRIED 142 MG TABCR PO (09:27)
[2023-04-16] MEDS: MULTIVITAMINS THERAPEUTIC TAB (*BKC) 1 TABLET PO (09:27)
[2023-04-16] MEDS: FILGRASTIM-SNDZ 480 MCG/0.8 ML SYRINGE SUB-Q (09:46)
[2023-04-16] MEDS: SODIUM CHLORIDE 0.9% IV 250 ML 30 ML IV CONT (11:16)
[2023-04-16] MEDS: TUBING, BLOOD PLUM PUMP TUBING 1 EACH XX (11:17)
[2023-04-16] MEDS: LOPERAMIDE HCL 2 MG CAPSULE PO (12:48)
--- NOTE | 2023-04-16 13:35 | PM.IMPN ---
Progress Note: A&P Assessment and Plan (1) Anemia: Code(s): D64.9 - Anemia, unspecified Status: Acute Assessment and Plan: Likely secondary to malignancy, continue home iron supplementation, monitor 04/16: acute drop in hgb down to 5, suspect hemolytic process? FOBT pending, transfusing one unit, recheck hgb afterwards, re-consult heme/onc for recs (2) Fever and neutropenia: Code(s): D70.9 - Neutropenia, unspecified; R50.81 - Fever presenting with conditions classified elsewhere Status: Acute Assessment and Plan: Neutropenic fever secondary to colon cancer on chemotherapy with pancytopenia, appreciate oncology consultation Follow-up blood culture, NGTD, and urine cultures, pending Potential sources UTI Continue reverse isolation precautions Vancomycin and cefepime initiated 04/13 D/c vanc (3) Acute hypotension: Code(s): I95.9 - Hypotension, unspecified Status: Acute Assessment and Plan: Likely secondary to sepsis versus neutropenic fever, resolved at this time, monitor Continue home lisinopril (4) Tachycardia: Code(s): R00.0 - Tachycardia, unspecified Status: Acute Assessment and Plan: As above, resolving (5) General weakness: Code(s): R53.1 - Weakness Status: Acute Assessment and Plan: Multifactorial, appreciate PT/OT eval, continue supportive care (6) Colon adenocarcinoma: Code(s): C18.9 - Malignant neoplasm of colon, unspecified Status: Acute Assessment and Plan: Danielle has seen patient, see above for his recommendations currently experiencing diarrhea since Sunday, stable. Likely reaction to chemo. Continue to monitor. Imodium prn Plan Chronic Conditions - lisinopril held due to hypotension Diet: regular diet with supplementation GI Prophylaxis: pantoprazole daily DVT Prophylaxis: SCDs Lines: pIV Code Status: Full Code Subjective Date/time seen: 04/16/23 13:35 Interval history: 67-year-old male with history of colon cancer currently receiving chemo, last chemo 1 and half weeks ago, GERD, hypertension and hyperlipidemia is presenting with weakness, falls and neutropenic fever. No overnight events noted. No chest pain or shortness of breath. No nausea, vomiting or diarrhea. No fevers or chills. He feels about the same today as yesterday. Review of Systems Review of Systems: 12 point review of systems was assessed and was negative except as noted in the HPI Exam Narrative: General: No acute distress, alert and oriented per baseline HEENT: Atraumatic, normocephalic, mucous membranes moist CV: Regular rate and rhythm, S1, S2 Lungs: Clear to auscultation bilaterally, no rales or crackles noted, no wheezes, good air entry Abdomen: Soft, nontender, nondistended Extremities: Normal to inspection Skin: No rashes noted, no lesions or wounds seen Psych: Euthymic, normal affect Objective Data Vital Signs Vital Signs: Vital Signs - 24 hr 04/15/23 16:00 04/15/23 14:00 04/15/23 16:00 Temperature 99.7 F H Pulse Rate 89 82 92 Respiratory Rate 16 Blood Pressure 116/53 L Pulse Oximetry 99 Oxygen Delivery 04/15/23 16:00 04/15/23 18:00 04/15/23 20:00 Temperature 98.8 F Pulse Rate 89 98 Respiratory Rate 16 Blood Pressure 112/59 L Pulse Oximetry 94 Oxygen Delivery Room Air 04/15/23 20:00 04/15/23 22:00 04/16/23 00:00 Temperature 99.3 F Pulse Rate 78 82 91 Respiratory Rate 16 Blood Pressure 109/54 L Pulse Oximetry 98 Oxygen Delivery 04/16/23 00:00 04/16/23 02:00 04/16/23 04:00 Temperature 98.3 F Pulse Rate 86 82 90 Respiratory Rate 16 Blood Pressure 112/52 L Pulse Oximetry 98 Oxygen Delivery 04/16/23 04:00 04/16/23 06:00 04/16/23 08:00 Temperature 97.5 F L Pulse Rate 83 81 88 Respiratory Rate 16 Blood Pressure 114/58 L Pulse Oximetry 97 Oxygen Delivery
[2023-04-16 14:22] LABS: Vancomycin Trough 10.8 ug/mL (10.0-20.0)
[2023-04-16] MEDS: POTASSIUM CHLORIDE 20 MEQ ER TABLET 40 MEQ PO (15:32)
[2023-04-16 17:34] LABS: Hemoglobin 8.8 g/dL (14.0-18.0)
[2023-04-17] VITALS (8 sets, daily range): BP systolic 107–115; BP diastolic 63–66; PULSE 80–91; RESP 16–20; TEMP 36.6–37.2; O2SAT 95–96
[2023-04-17 05:43] LABS: Hematocrit 26.6 % (42.0-52.0); Hemoglobin 9.1 g/dL (14.0-18.0); Immature Platelet Fraction Pct 3.9 % (0.9-11.2); Mean Corpuscular HGB Conc 34.2 g/dl (32-36); Mean Corpuscular Hemoglobin 29.5 pg (26-34); Mean Corpuscular Volume 86.4 fl (80-100); Mean Platelet Volume 9.2 fl (7.4-10.4); Platelet Count Result 86 k/mm3 (150-375); Red Blood Count 3.08 M/mm3 (4.6-6.20); Red Cell Distribution Width 19.4 % (11.5-14.5); White Blood Count 9.1 K/mm3 (4.5-10.0)
[2023-04-17 06:11] LABS: Alanine Aminotransferase 37 U/L (6-50); Albumin Level 2.5 g/dL (3.5-5.1); Alkaline Phosphatase 76 U/L (38-126); Anion Gap 3 mmol/L (8-16); Aspartate Amino Transferase 42 U/L (17-59); Bilirubin,Total 0.6 mg/dL (0.2-1.3); Blood Urea Nitrogen 9 mg/dL (9-20); Calcium 8.7 mg/dL (8.4-10.2); Carbon Dioxide 22 mmol/L (22-30); Chloride 106 mmol/L (98-107); Estimated CRCL calculation 94 ml/min; Estimated Glomerular Filt Rate > 60; Glucose 87 mg/dL (65-110); Magnesium 1.8 mg/dL (1.6-2.3); Potassium 3.3 mmol/L (3.4-5.0); Sodium 131 mmol/L (137-145)
[2023-04-17 07:25] LABS: Band Neutrophils Percent 53 % (0-6); Eosinophils Absolute Manual 0.18 K/mm3 (0.02-0.5); Eosinophils Percent Manual 2 % (0-4); Lymphocytes Absolute Manual 1.09 K/mm3 (1.1-4.5); Metamyelocytes Percent 3 %; Monocytes Absolute Manual 0.63 K/mm3 (0.1-0.90); Monocytes Percent Manual 7 % (3-9); Myelocytes Percent 1 %; Neutrophils Absolute Manual 6.82 K/mm3 (1.3-6.7); Neutrophils Percent Manual 22 % (46-73); Nucleated Red Blood Cells 1 %; Poikilocytosis 1+ (NORMAL); Schistocytes Rare (NORMAL); Total Cells Counted 100
[2023-04-17 07:26] LABS: Ovalocytes 1+ (NORMAL)
--- NOTE | 2023-04-17 09:21 | PM.IMPN ---
Progress Note: A&P Assessment and Plan (1) Anemia: Code(s): D64.9 - Anemia, unspecified Status: Acute Assessment and Plan: Likely secondary to malignancy, continue home iron supplementation, monitor 04/16: acute drop in hgb down to 5, suspect hemolytic process? FOBT pending, transfusing one unit, recheck hgb afterwards, re-consult heme/onc for recs 04/17: resolved, monitor (2) Fever and neutropenia: Code(s): D70.9 - Neutropenia, unspecified; R50.81 - Fever presenting with conditions classified elsewhere Status: Acute Assessment and Plan: Neutropenic fever secondary to colon cancer on chemotherapy with pancytopenia, appreciate oncology consultation Follow-up blood culture, NGTD, and urine cultures, pending Potential sources UTI Continue reverse isolation precautions Vancomycin and cefepime initiated 04/13 D/c vanc Urine cx negative, bld cx NGTD, do not suspect underlying infection, suspect aseptic fever, d/c cefepime D/c tomorrow if remains stable off abx (3) Acute hypotension: Code(s): I95.9 - Hypotension, unspecified Status: Acute Assessment and Plan: Likely secondary to sepsis versus neutropenic fever, resolved at this time, monitor Continue home lisinopril (4) Tachycardia: Code(s): R00.0 - Tachycardia, unspecified Status: Acute Assessment and Plan: Resolved (5) General weakness: Code(s): R53.1 - Weakness Status: Acute Assessment and Plan: Multifactorial, appreciate PT/OT eval, continue supportive care Resolving (6) Colon adenocarcinoma: Code(s): C18.9 - Malignant neoplasm of colon, unspecified Status: Acute Assessment and Plan: Danielle has seen patient, see above for his recommendations currently experiencing diarrhea since Sunday, stable. Likely reaction to chemo. Continue to monitor. Imodium prn Plan Diet: regular diet with supplementation GI Prophylaxis: pantoprazole daily DVT Prophylaxis: SCDs Lines: pIV Code Status: Full Code Subjective Date/time seen: 04/17/23 09:21 Interval history: 67-year-old male with history of colon cancer currently receiving chemo, last chemo 1 and half weeks ago, GERD, hypertension and hyperlipidemia is presenting with weakness, falls and neutropenic fever. No overnight events noted. No chest pain or shortness of breath. No nausea, vomiting or diarrhea. No fevers or chills. He feels about the same today as yesterday. Review of Systems Review of Systems: 12 point review of systems was assessed and was negative except as noted in the HPI Exam Narrative: General: No acute distress, alert and oriented per baseline HEENT: Atraumatic, normocephalic, mucous membranes moist CV: Regular rate and rhythm, S1, S2 Lungs: Clear to auscultation bilaterally, no rales or crackles noted, no wheezes, good air entry Abdomen: Soft, nontender, nondistended Extremities: Normal to inspection Skin: No rashes noted, no lesions or wounds seen Psych: Euthymic, normal affect Objective Data Vital Signs Vital Signs: Vital Signs - 24 hr 04/16/23 11:27 04/16/23 11:43 04/16/23 12:00 Temperature 99.6 F 98.4 F 98.6 F Pulse Rate 90 96 90 Respiratory Rate 14 18 14 Blood Pressure 113/58 L 112/57 L 113/58 L Pulse Oximetry 97 97 97 04/16/23 12:43 04/16/23 13:43 04/16/23 16:00 Temperature 98.6 F 99.5 F 97.7 F Pulse Rate 95 89 95 Respiratory Rate 18 16 18 Blood Pressure 114/62 112/56 L 110/66 Pulse Oximetry 97 97 97 04/16/23 10:00 04/16/23 12:00 04/16/23 14:00 Temperature Pulse Rate 92 72 90 Respiratory Rate Blood Pressure Pulse Oximetry 04/16/23 16:00 04/16/23 18:00 04/16/23 20:00 Temperature 98.3 F Pulse Rate 88 89 92 Respiratory Rate 18 Blood Pressure 123/72 Pulse Oximetry 96 04/16/23 22:00 04/16/23 20:00 04/17/23 00:00 Temperature 98.1 F Pulse Rate 91 98 91 Respiratory Rate
[2023-04-17] MEDS: LACTATED RINGERS 1,000 ML 100 ML IV CONT ×2 (11:18→11:22)
[2023-04-17] MEDS: MULTIVITAMINS THERAPEUTIC TAB (*BKC) 1 TABLET PO (11:19)
[2023-04-17] MEDS: PANTOPRAZOLE 40 MG TABLET PO (11:19)
[2023-04-17] MEDS: POTASSIUM CHLORIDE 20 MEQ ER TABLET 40 MEQ PO (11:19)
[2023-04-17] MEDS: FERROUS SULFATE DRIED 142 MG TABCR PO (11:19)
--- NOTE | 2023-04-17 11:22 | PCNFU ---
Nutrition Follow-Up Complete: Unintended weight loss as related to cancer as evidenced by 14-23 weight loss in 2-3 months reported. Goal: Adequate Intake of at least 75% of meals/supplements - Making progress, continue with same goal. Pt current nutrition is Regular diet. Ensure Enlive TID for additional 350 kcal and 20 g protein each. Nutrition recommendation: Continue with current nutrition care plan. Agree with orders Last recorded weight is 67.5 kg. Bowel Motility: +1 BM 04/16/23 Labs Reviewed: Hgb 9.1, Hct 26.6, Alb 2.5, Na 131, K+ 3.3, Cre 0.6 Meds Noted: Protonix Skin:No pressure areas Additional Notes: Appetite improved today, ate 100% breakfast. Has been drinking some Ensure Enlive. Continue with current nutrition care plan and monitoring. RD will monitor weight, labs, skin, oral intake every 5 days.
[2023-04-17] MEDS: FILGRASTIM-SNDZ 480 MCG/0.8 ML SYRINGE SUB-Q (13:27)
--- NOTE | 2023-04-17 13:40 | PM.DS ---
DS: Admitting Diagnosis Discharge Date 04/17/23 Admitting Diagnosis fever DS: Discharge Diagnosis Discharge Diagnosis (1) Anemia: Code(s): D64.9 - Anemia, unspecified Status: Acute Assessment and Plan: Likely secondary to malignancy, continue home iron supplementation, monitor 04/16: acute drop in hgb down to 5, suspect hemolytic process? FOBT pending, transfusing one unit, recheck hgb afterwards, re-consult heme/onc for recs 04/17: resolved, monitor (2) Fever and neutropenia: Code(s): D70.9 - Neutropenia, unspecified; R50.81 - Fever presenting with conditions classified elsewhere Status: Acute Assessment and Plan: Neutropenic fever secondary to colon cancer on chemotherapy with pancytopenia, appreciate oncology consultation Follow-up blood culture, NGTD, and urine cultures, pending Potential sources UTI Continue reverse isolation precautions Vancomycin and cefepime initiated 04/13 D/c vanc Urine cx negative, bld cx NGTD, do not suspect underlying infection, suspect aseptic fever, d/c cefepime D/c tomorrow if remains stable off abx (3) Acute hypotension: Code(s): I95.9 - Hypotension, unspecified Status: Acute Assessment and Plan: Likely secondary to sepsis versus neutropenic fever, resolved at this time, monitor Continue home lisinopril (4) Tachycardia: Code(s): R00.0 - Tachycardia, unspecified Status: Acute Assessment and Plan: Resolved (5) General weakness: Code(s): R53.1 - Weakness Status: Acute Assessment and Plan: Multifactorial, appreciate PT/OT eval, continue supportive care Resolving (6) Colon adenocarcinoma: Code(s): C18.9 - Malignant neoplasm of colon, unspecified Status: Acute Assessment and Plan: Danielle has seen patient, see above for his recommendations currently experiencing diarrhea since Sunday, stable. Likely reaction to chemo. Continue to monitor. Imodium prn Plan Diet: regular diet with supplementation GI Prophylaxis: pantoprazole daily DVT Prophylaxis: SCDs Lines: pIV Code Status: Full Code DS: Summary Hospital Course Hospital Course: 67-year-old male with history of colon cancer currently receiving chemo, last chemo 1 and half weeks ago, GERD, hypertension and hyperlipidemia is presenting with weakness, falls and neutropenic fever. Likely secondary to malignancy, continue home iron supplementation, monitor 04/16: acute drop in hgb down to 5, suspect hemolytic process? FOBT pending, transfusing one unit, recheck hgb afterwards, re-consult heme/onc for recs 04/17: resolved, monitor Neutropenic fever secondary to colon cancer on chemotherapy with pancytopenia, appreciate oncology consultation Follow-up blood culture, NGTD, and urine cultures, pending Potential sources UTI Continue reverse isolation precautions Vancomycin and cefepime initiated 04/13 D/c vanc Urine cx negative, bld cx NGTD, do not suspect underlying infection, suspect aseptic fever, d/c cefepime Patient stable off all antibiotics and was discharged with close outpatient follow-up. Please see above and med rec for details. Time Spent with Patient Time attestation: Total time spent providing and/or coordinating discharge services: Exam Narrative: General: No acute distress, alert and oriented per baseline HEENT: Atraumatic, normocephalic, mucous membranes moist CV: Regular rate and rhythm, S1, S2 Lungs: Clear to auscultation bilaterally, no rales or crackles noted, no wheezes, good air entry Abdomen: Soft, nontender, nondistended Extremities: Normal to inspection Skin: No rashes noted, no lesions or wounds seen Psych: Euthymic, normal affect DS: Data Data Completed and Pending Labs on day of discharge: Labs from last 24 hours 04/17/23 04/16/23 04/16/23 05:09 17:25 13:27 WBC 9.1 RBC 3.08 L Hgb 9.1 L 8.8 L D Hct 26.6 L 26.0 L MCV 86.
[2023-04-17] MEDS: HEPARIN SODIUM LOCK FLUSH 500 UNITS/5 ML VIAL IV PUSH (16:10)
== END 2023-04-17 16:50 | disposition home or self-care (01) | DRG 809 ==
LOC: ANHED 11:06 → ANHIMU 12:02
PROVIDERS: Internal Medicine Hematology & Oncology; Student in an Organized Health Care Education/Training Program; Admitting Provider Chiropractor; Emergency Provider Emergency Medicine; PCP Internal Medicine; Visit Provider Student in an Organized Health Care Education/Training Program
DX: D61.810 Antineoplastic chemotherapy induced pancytopenia (principal); C18.9 Malignant neoplasm of colon, unspecified; T45.1X5A Adverse effect of antineoplastic and immunosuppressive drugs, initial encounter; R50.81 Fever presenting with conditions classified elsewhere; D63.0 Anemia in neoplastic disease; Z20.822 Contact with and (suspected) exposure to COVID-19; I95.89 Other hypotension; I10 Essential (primary) hypertension; E87.6 Hypokalemia; E78.5 Hyperlipidemia, unspecified; R00.0 Tachycardia, unspecified; K57.90 Diverticulosis of intestine, part unspecified, without perforation or abscess without bleeding; K21.9 Gastro-esophageal reflux disease without esophagitis; R29.6 Repeated falls; Z87.891 Personal history of nicotine dependence
CPT/HCPCS: 36415; 36430; 71045; 80048; 80053; 80202; 81001; 82607; 82728; 82746; 83540; 83550; 83605; 83735; 85014; 85018; 85025; 85055; 85610; 85730; 86850; 86900; 86901; 86923; 87040; 87086; 87637; 87641; 93005; 96361; 96366; 96367; 96375; 96376; 99285; A9270; G0378; J0692; J1642; J2405; J3370; J3475; J3480; J7030; J7040; J7050; J7120; P9016; Q5101

== ENCOUNTER 2023-09-25 08:40 | Outpatient (CLI) | payer MEDICARE, SELFPAY ==
--- NOTE | ~2023-09-25 | CT_ITS ---
EXAMINATION: CT chest abdomen pelvis w con DATE: 09/25/2023 09:29 INDICATION: Colon cancer. TECHNIQUE: Computed tomography (CT) of the chest, abdomen, and pelvis was performed with 100 mL Omnip aque 350 intravenous contrast. Automated exposure control and iterative reconstruction technique were employed. The dose-length product was 315.20 mGy-cm. COMPARISON: None currently available. FINDINGS: CHEST CT: There is mild emphysema. There is minimal atelectasis bilaterally. No pleural effusion. The heart siz e is normal. No pericardial effusion. There is a moderate-sized sliding hiatal hernia. There is mild bilateral gynecomastia. There is a right subclavian port with tip at superior cavoatrial junction. Th ere is severe cervical spondylosis and mild thoracic spondylosis. ABDOMEN/PELVIS CT: The liver demonstrates surface nodularity, consistent with cirrhosis. There is a 5 mm hypodense mass in right hepatic lobe. There is are two cysts in the spleen measuring up to 8 mm. There is mild splen omegaly. The gallbladder is normal in size. The pancreas and adrenal glands are normal. There are cys ts in the kidneys measuring up to 4.6 cm on the right. There is diverticulosis of the colon without e vidence of diverticulitis. There are changes of right hemicolectomy. There are no pathologically enla rged lymph nodes. There is no free intraperitoneal fluid. There is calcified atherosclerosis of the a marisol and many of the other arteries. There is mild lumbar spondylosis. IMPRESSION: 1. Cirrhosis of the liver with portal venous hypertension. 2. 5 mm liver mass, which may be benign or less likely metastatic disease. Consider abdomen CT in [address] [facility]. Reviewed, dictated and finalized at location A. IMPRESSION: 1. Cirrhosis of the liver with portal venous hypertension. 2. 5 mm liver mass, which may be benign or less likely metastatic disease. Cons ider abdomen CT in 6 months.
== END 2023-09-25 08:41 | disposition home or self-care (01) ==
PROVIDERS: PCP Internal Medicine; Visit Provider Nurse Practitioner Family
DX: C18.9 Malignant neoplasm of colon, unspecified (principal); K74.69 Other cirrhosis of liver
CPT/HCPCS: 71260; 74177; Q9967

== ENCOUNTER 2024-01-01 01:58 | Day surgery (SDC) | payer MEDICARE, SELFPAY ==
[2023-12-13 13:10] VITALS: BMI 22.1
[2024-01-01 08:02] VITALS: BP 152/80; PULSE 71; RESP 18; TEMP 36.7; O2SAT 98; BMI 22.6
[2024-01-01] MEDS: LACTATED RINGERS 1,000 ML 150 ML IV CONT (08:21)
--- NOTE | 2024-01-01 08:59 | PM.HPGS ---
History of Present Illness History of Present Illness Consent: Risks, benefits, and alternatives have been discussed and questions answered. Patient agrees to proceed with procedure. Chief complaint: Personal history other malignant neoplasm of large Narrative: Leighann Thomas is a 68 year old male with rt colon cancer 11/2023 s/p rt hemicolectomy and chemotherapy, here for colonoscopy PMFSH Past Medical History Medical History Chronic GERD Colon adenocarcinoma Diverticulosis Essential (primary) hypertension Gallstones HTN (hypertension) Hyperlipidemia Surgical History Surgical History Elective surgery Finger History of lung surgery Hx of right hemicolectomy robotic assisted right hemicolectomy by Dr. Mckee on 12/21/22. Family History Family History Sibling Patient's sister is in good health Patient's brother is in good health Mother Patient's mother is Father Patient's father is , Onset Age: 50 Social History Social History Social History: Patient currently lives alone. Surrogate decision maker: Amos Thomas, daughter. Code status: Full Code. Smoking packs per day: 1 Smoking cigarettes per day: 20.0 Years smoked: 20 Smoking pack-years: 20.00 Smoking status: Former smoker Tobacco type: cigarettes Second hand tobacco smoke exposure: No Smoking end date: 12/23/90 Alcohol intake: former Drinks per week: 2 Alcohol use details: RARE Substance use: current Substance use type: marijuana Other substance usage details: vapes 2- 3 times weekly Last use: 11/15 Lack of Transportation: No Lack of Food: Never True Current Housing: I Have Housing Concerned About Future Housing: No Difficulty Paying Gas/Electric Bills: No Difficulty Paying for Meds: No Currently Unemployed: No Education: High School Diploma/GED Difficulty w/ Childcare or Family Care: No Living arrangements: alone Spiritual care concerns: No Meds Home Medications and Allergies Home Medications Medication Instructions Recorded Confirmed Type multivitamin 1 tablet PO DAILY 01/10/23 01/01/24 History iron 40 mg capsule 40 mg PO BID 02/06/23 01/01/24 History mecobalamin (vitamin B12) 1,000 1,000 mcg PO DAILY 08/08/23 01/01/24 History mcg chewable tablet pantoprazole 40 mg tablet,delayed 40 mg PO BID #180 tabs 10/11/23 01/01/24 Rx release (Protonix) Allergies Allergy/AdvReac Type Severity Reaction Status Date / Time Penicillins Allergy Mild Hives Verified 01/01/24 08:12 Vital Signs Vital Signs - 24 hr 01/01/24 08:02 Temperature 98.0 F Pulse Rate 71 Respiratory Rate 18 Blood Pressure 152/80 H Pulse Oximetry 98 Oxygen Delivery Room Air
--- NOTE | 2024-01-01 09:00 | WPDANESEPPF ---
Anes - Initial Pre Proc Eval Procedure: Operation Date: 01/01/24 09:30 Proposed Procedures p Colonoscopy - Pepe Hoang MD Date/Time: 01/01/24 09:00 Surgeon: Pepe Hoang MD Pre Op Diagnosis: Personal history other malignant neoplasm of large Patient Data Age: 68 Gender: M Height: 1.75 m Weight: 69.6 kg Last Vital Signs Temp 98.0 F 01/01/24 08:02 Pulse 71 01/01/24 08:02 Resp 18 01/01/24 08:02 BP 152/80 H 01/01/24 08:02 Pulse Ox 98 01/01/24 08:02 O2 Del Method Room Air 01/01/24 08:02 Allergies Allergy/AdvReac Type Severity Reaction Status Date / Time Penicillins Allergy Mild Hives Verified 01/01/24 08:12 Home Medications Medication Instructions Recorded Confirmed Type multivitamin 1 tablet PO DAILY 01/10/23 01/01/24 History iron 40 mg capsule 40 mg PO BID 02/06/23 01/01/24 History mecobalamin (vitamin B12) 1,000 1,000 mcg PO DAILY 08/08/23 01/01/24 History mcg chewable tablet pantoprazole 40 mg tablet,delayed 40 mg PO BID #180 tabs 10/11/23 01/01/24 Rx release (Protonix) Patient hx anesthesia problems: none Family hx anesthesia problems: none Results Review: All pre-operative results and documents have been reviewed as part of the pre-operative evaluation. [facility] Past Medical History Medical History Chronic GERD Colon adenocarcinoma Diverticulosis Essential (primary) hypertension Gallstones HTN (hypertension) Hyperlipidemia Surgical History Surgical History Elective surgery Finger History of lung surgery Hx of right hemicolectomy robotic assisted right hemicolectomy by Dr. Mckee on 12/21/22. Family History Family History Sibling Patient's sister is in good health Patient's brother is in good health Mother Patient's mother is Father Patient's father is , Onset Age: 50 Social History Social History Social History: Patient currently lives alone. Surrogate decision maker: Amos Thomas, daughter. Code status: Full Code. Smoking packs per day: 1 Smoking cigarettes per day: 20.0 Years smoked: 20 Smoking pack-years: 20.00 Smoking status: Former smoker Tobacco type: cigarettes Second hand tobacco smoke exposure: No Smoking end date: 12/23/90 Alcohol intake: former Drinks per week: 2 Alcohol use details: RARE Substance use: current Substance use type: marijuana Other substance usage details: vapes 2- 3 times weekly Last use: 11/15 Lack of Transportation: No Lack of Food: Never True Current Housing: I Have Housing Concerned About Future Housing: No Difficulty Paying Gas/Electric Bills: No Difficulty Paying for Meds: No Currently Unemployed: No Education: High School Diploma/GED Difficulty w/ Childcare or Family Care: No Living arrangements: alone Spiritual care concerns: No Anes - Eval Final PreProcedure Day of Procedure 01/01/24 09:00 Patient weight: normal Heart: regular rate and rhythm Lungs: clear to auscultation Airway: Mallampati scale class II Neurological: alert and oriented Last oral intake: >/= 8 hours ASA classification: III Emergent: no Anesthetic plan: proceed Anesthesia type and monitoring: general GIVS and standard monitoring Results Review: All pre-operative results and documents have been reviewed as part of the pre-operative evaluation. Informed Consent: The patient's anesthetic plan and its attendant risks and benefits were discussed with the patient/family/POA. Questions were solicited and answers provided to the satisfaction of the patient/family/POA.
--- NOTE | 2024-01-01 09:03 | PM.HPGS ---
History of Present Illness History of Present Illness Consent: Risks, benefits, and alternatives have been discussed and questions answered. Patient agrees to proceed with procedure. Chief complaint: Personal history other malignant neoplasm of large Narrative: Leighann Thomas is a 68 year old male with ascending colon cancer 11/2023 s/p surgery and chemotherapy, here for colonoscopy Review of Systems Review of Systems: All systems reviewed & are unremarkable except as noted in HPI and below PMFSH Past Medical History Medical History Chronic GERD Colon adenocarcinoma Diverticulosis Essential (primary) hypertension Gallstones HTN (hypertension) Hyperlipidemia Surgical History Surgical History Elective surgery Finger History of lung surgery Hx of right hemicolectomy robotic assisted right hemicolectomy by Dr. Mckee on 12/21/22. Family History Family History Sibling Patient's sister is in good health Patient's brother is in good health Mother Patient's mother is Father Patient's father is , Onset Age: 50 Social History Social History Social History: Patient currently lives alone. Surrogate decision maker: Amos Thomas, daughter. Code status: Full Code. Smoking packs per day: 1 Smoking cigarettes per day: 20.0 Years smoked: 20 Smoking pack-years: 20.00 Smoking status: Former smoker Tobacco type: cigarettes Second hand tobacco smoke exposure: No Smoking end date: 12/23/90 Alcohol intake: former Drinks per week: 2 Alcohol use details: RARE Substance use: current Substance use type: marijuana Other substance usage details: vapes 2- 3 times weekly Last use: 11/15 Lack of Transportation: No Lack of Food: Never True Current Housing: I Have Housing Concerned About Future Housing: No Difficulty Paying Gas/Electric Bills: No Difficulty Paying for Meds: No Currently Unemployed: No Education: High School Diploma/GED Difficulty w/ Childcare or Family Care: No Living arrangements: alone Spiritual care concerns: No Meds Home Medications and Allergies Home Medications Medication Instructions Recorded Confirmed Type multivitamin 1 tablet PO DAILY 01/10/23 01/01/24 History iron 40 mg capsule 40 mg PO BID 02/06/23 01/01/24 History mecobalamin (vitamin B12) 1,000 1,000 mcg PO DAILY 08/08/23 01/01/24 History mcg chewable tablet pantoprazole 40 mg tablet,delayed 40 mg PO BID #180 tabs 10/11/23 01/01/24 Rx release (Protonix) Allergies Allergy/AdvReac Type Severity Reaction Status Date / Time Penicillins Allergy Mild Hives Verified 01/01/24 08:12 Vital Signs Vital Signs - 24 hr 01/01/24 08:02 Temperature 98.0 F Pulse Rate 71 Respiratory Rate 18 Blood Pressure 152/80 H Pulse Oximetry 98 Oxygen Delivery Room Air Exam Const: General: comfortable and no acute distress HENMT: Face/Nose/Sinus: Normal nares present Eyes: General: appearance normal, both eyes and all related structures Neck: Neck: no JVD Resp: Auscultation: clear to auscultation bilaterally Cardio: Rate: regular rate Rhythm: regular rhythm GI: Inspection: non-distended GI Palp: Yes Soft to palpation Skin: General skin exam: normal color Neuro: General: gait normal Speech: normal speech Extrem: General: normal to inspection Psych: Mental Status: mental status grossly normal Assessment and Plan Assessment and plan (1) Colon adenocarcinoma: Code(s): C18.9 - Malignant neoplasm of colon, unspecified Status: Acute Assessment and Plan: colonoscopy
[2024-01-01 09:20] VITALS: BP 102/62; PULSE 64; RESP 18; O2SAT 97
[2024-01-01 09:30] VITALS: BP 106/67; PULSE 60; RESP 18; O2SAT 97
[2024-01-01 09:39] VITALS: BP 128/67; PULSE 73; RESP 18; O2SAT 98
== END 2024-01-01 09:46 | disposition home or self-care (01) ==
PROVIDERS: PCP Internal Medicine; Referring Provider Internal Medicine Hematology & Oncology; Visit Provider Internal Medicine Gastroenterology
PROC: 0DJD8ZZ Inspection of Lower Intestinal Tract, Via Natural or Artificial Opening Endoscopic (ICD-10-PCS; CPT 45378; principal; 2024-01-01 09:30)
DX: Z08 Encounter for follow-up examination after completed treatment for malignant neoplasm (principal); C18.9 Malignant neoplasm of colon, unspecified; D12.4 Benign neoplasm of descending colon; K57.30 Diverticulosis of large intestine without perforation or abscess without bleeding; K63.89 Other specified diseases of intestine; K64.8 Other hemorrhoids; Z87.891 Personal history of nicotine dependence; I10 Essential (primary) hypertension; K21.9 Gastro-esophageal reflux disease without esophagitis; E78.5 Hyperlipidemia, unspecified
CPT/HCPCS: 45385; 88305; J2001; J2704; J7120

== ENCOUNTER 2024-01-22 08:01 | Outpatient (CLI) | payer MEDICARE, SELFPAY ==
--- NOTE | ~2024-01-22 | PE_ITS ---
EXAMINATION: PET skull to mid thigh DATE: 01/22/2024 10:31 INDICATION: Colon carcinoma. TECHNIQUE: Blood glucose level was 109 mg/dL. 9.085 mCi of 18-fluorodeoxyglucose (18-FDG) was adminis tered i.v. Low dose computed tomography (CT) images were acquired from the base of the brain to the p roximal thighs for attenuation correction and anatomic localization. Automated exposure control was e mployed. Dose-length product (DLP) was 819 mGy-cm. Positron emission tomography (PET) images were acq uired in the same distribution. COMPARISON: CT chest, abdomen, and pelvis 09/25/2023 FINDINGS: Head/neck: There are no pathologically enlarged lymph nodes. Chest: There is mild emphysema. There is mild atelectasis bilaterally. No pleural effusion. There is a right subclavian port with tip at superior cavoatrial junction. There is a moderate-sized sliding h iatal hernia. Abdomen/pelvis/proximal thighs: There is a stable 5 mm hypodense mass in right hepatic lobe, likely b enign. There is a gallstone in the gallbladder, which is normal in size. The spleen, pancreas, adrena l glands are normal. There are cysts in the kidneys measuring up to 4.7 cm on the right. The prostate is moderately enlarged. There is diverticulosis of the colon without evidence of diverticulitis. The re are changes of right hemicolectomy. There are no pathologically enlarged lymph nodes. There is no free intraperitoneal fluid. There is no osseous malignancy. IMPRESSION: 1. No evidence of metastatic disease. Reviewed, dictated and finalized at location A.
[2024-01-22 08:24] LABS: Glucose Point of Care 109 mg/dl (65-105)
== END 2024-01-22 08:02 | disposition home or self-care (01) ==
PROVIDERS: PCP Internal Medicine; Visit Provider Internal Medicine Hematology & Oncology
DX: C78.7 Secondary malignant neoplasm of liver and intrahepatic bile duct (principal); C18.9 Malignant neoplasm of colon, unspecified
CPT/HCPCS: 78815; A9552

== ENCOUNTER 2024-06-03 13:38 | Outpatient (CLI) | payer MEDICARE, SELFPAY ==
--- NOTE | ~2024-06-03 | CT_ITS ---
Clinical Indication: Colon cancer CT Scan of the Chest, Abdomen, and Pelvis with Contrast: Technique: Contiguous sections were acquired throughout the chest, abdomen, and pelvis after intraven ous administration of 100 cc of Omnipaque 350. Dose reduction technique was used on this scan by mei maldonado automated exposure control and iterative reconstruction technique. The dose-length product (DL P) was 427.29 mGy-cm. Comparison: 09/25/2023 Findings: There is no evidence of any significant mediastinal, hilar or axillary lymphadenopathy. The mediastin al soft tissues appear normal. There is no evidence of pleural or pericardial effusion. The lungs are clear. No pulmonary nodules or infiltrates are noted. There is mildly nodular contour of liver with diffuse hepatic steatosis. Small inferior right hepatic lobe cyst present. Tiny gallstone present. The spleen, pancreas, adrenals and kidneys are within nor mal limits. There are atherosclerotic calcifications of the aorta. No lymphadenopathy. Moderate hiatal hernia noted. No bowel obstruction or bowel wall thickening. There is evidence of lashon or partial large bowel resection. Colonic diverticulosis noted.. Urinary bladder is unremarkable. Prostate gland enlarged. No ascites. Impression: No evidence for active malignancy or metastatic disease. Cirrhotic morphology of the liver with diffuse hepatic steatosis. Prior partial large bowel resection. Moderate hiatal hernia. Tiny gallstone. Reviewed, dictated and finalized at location . [employer] Impression: No evidence for active malignancy or metastatic disease. Cirrhotic morphology of the liver with diffuse hepatic steatosis. Prior partial large bowel resection. Moderate hiatal hernia. Tiny gallstone.
== END 2024-06-03 13:39 | disposition home or self-care (01) ==
PROVIDERS: PCP Internal Medicine; Visit Provider Internal Medicine Hematology & Oncology
DX: C18.9 Malignant neoplasm of colon, unspecified (principal); K44.9 Diaphragmatic hernia without obstruction or gangrene
CPT/HCPCS: 71260; 74177; Q9967

== ENCOUNTER 2025-03-02 10:38 | Outpatient (CLI) | payer MEDICARE, SELFPAY ==
--- NOTE | ~2025-03-02 | CT_ITS ---
EXAMINATION: CT abdomen pelvis w con DATE: 03/02/2025 11:20 INDICATION: Colon carcinoma. TECHNIQUE: Computed tomography (CT) of the abdomen and pelvis was performed with 100 mL Omnipaque 350 intravenous contrast. Automated exposure control and iterative reconstruction technique were employed. The dose-length product was 417.97 mGy-cm. COMPARISON: CT abdomen and pelvis 06/03/2024 FINDINGS: The visualized portions of the lung bases demonstrate mild atelectasis. No pleural effusion. The heart size is normal. No pericardial effusion. There is a moderate-sized sliding hiatal hernia. The liver demonstrates surface nodularity. There are two 5 mm cysts in the liver. There is a new 12 mm mass in right hepatic lobe. There is a new 15 mm mass in left hepatic lobe. There is a gallstone in the gallbladder, which is normal in size. The spleen, pancreas, and adrenal glands are normal. There are cysts in the kidneys measuring up to 4.5 cm on the right. The prostate is moderately enlarged. There are changes of right hemicolectomy. There are no dilated loops of bowel. There are no pathologically enlarged lymph nodes. There is no free intraperitoneal fluid. There is mild thoracic and lumbar spondylosis. IMPRESSION: 1. Two new liver masses, consistent with metastatic disease. 2. Liver surface nodularity suspicious for cirrhosis. 3. Moderate-sized sliding hiatal hernia. Reviewed, dictated and finalized at location E.
--- OUTSIDE RECORDS SUMMARY | 2025-03-02 11:00 | XMS_ITS | Clinical Summary ---
Author Organization [facility] Address [address] [facility] [place] [address] Care Team Providers Care Asphalt Paving Supervisor Name Role Phone BienvenidoHemanthSantoselizabeth Dubon DO Primary Care Provider [phone] Abhinav Santos MD Unavailable [phone] Source Comments [facility],non-owned Affiliates and Associated Physician Practices is amultiple site organization consisting of ambulatory clinics and hospital sitesin [place], [place], [place] and [place]. This disclosure is being madepursuant to the Care Everywhere program and may not contain all information available regarding this patient. Last updated 18.[facility] Allergies Active Allergy Reactions Criticality Noted Date Comments Penicillins Unknown 04/11/2018 Medications * Be aware that medications may not be up to date on this document. Alwaysverify current medications with the patient. lisinopril (Prinivil; Zestril) 20 MG tablet Take 1 (one) tablet by mouth once daily 3 Active pantoprazole EC (Protonix) 40 MG tablet Take 1 (one) tablet by mouth 2 times daily Active ferrous sulfate 325 (65 FE) MG tablet Take 1 (one) tablet by mouth 2 times daily with morning and evening meal Active lidocaine-prilo emre (Emla) 2.5-2.5 % cream Apply to affected area SEE ADMIN INSTRUCTIONS 3 Active Active Problems Problem Noted Date Diagnosed Date Metabolic dysfunction-associ ated steatotic liver disease (MASLD) 01/29/2024 Overview (01/29/2024): 01/29/24 Fibroscan CAP 262, LSM 6.7 kPa Immunizations Immunization Administration Dates Next Due iNFLUENZA VACCINE, RECOM-DUNCAN, QUADR. 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 Gender Identity Not on file Sexual Orientation Not on file Last Filed Vital Signs Vital Sign Reading Time Taken Comments Blood Pressure 126/79 01/29/2024 12:47 PM CDT Pulse 68 01/29/2024 12:47 PM CDT Temperature - - Respiratory Rate - - Oxygen Saturation 97% 01/29/2024 12: 47 PM CDT Inhaled Oxygen Concentration - - Weight 71.1 kg (156 lb 12.8 oz) 024 12:47 PM CDT Height 175.3 cm (5' 9) 01/29/2024 12:4 7 PM CDT Body Mass Index 23.16 01/29/2024 12:47 PM CDT Plan of Treatment Health Maintenance Due Date Last Done Comments COLOGUARD (AGES 45-75) - COL ON CA SCREENING 1953 COLON MONITORING 1953 COLONOSCOPY - COLON CA SCREENING 1953 CT COLONOGRAPHY - COLON CA SCREENING 1953 Colorectal Cancer Screening 1953 FIT - COLON CA SCREENING 1953 FLEX SIG - COLON CA SCREENING 1953 LIPID TESTING 1953 HEPATITIS C SCREENING 05/01/1971 DTAP/TDAP/TD VACCINES (1 - Tdap) 1972 PNEUMOCOCCAL VACCINE 50+ (1 of 1 - PCV) 2003 ZOSTER VACCINE (1 of 2) 2003 DEPRESSION SCREENING 06/25/2024 MEDICARE AWV CALENDAR YEAR 2024 COVID-19 VACCINE (1 - 2023-2 5 season) 2025 INFLUENZA VACCINE (#1) 2025 04/11/2018 Respiratory Syncytial Virus (RSV) Vaccine Pt: or over 60 yrs (1 - 1-dose 75+ series) 2028 HEPATITIS B VACCINE Aged Out No longe r eligible based on patient's age to complete this topic HIB VACCINE Aged Out No longer eligi ble based on patient's age to complete this topic HPV VACCINE Aged Out No longer eligi ble based on patient's age to complete this topic MENINGOCOCCAL (Group B) VACC INE SHARED DECISION-MAKING Aged Out No longer eligibl e based on patient's age to complete this topic MENINGOCOCCAL GROUPS A/C/Y/W VACCINE Aged Out No longer eligible b ased on patient's age to complete this [place] [address] [employer] MEDICARE ADV HMO & PPO * Guarantor: FRANCO HERNANDEZ Type Relation to Patient Date of Phone Billing Address Personal/Family [address] [place] [address] [place] [address] [employer] SELF PAY NO INSURANCE Member Subscriber Plan / Payer (Ef fective for All Dates) Name:Ida Hernandez Member ID:Not on file Relation to Subscriber:Not on file Name:FRANCO HERNANDEZ Subscriber ID:Not on file Address: [address] [place] [id number] Payer ID:Not on file Group ID:Not on file Type:Self Pay Address: [place], [place] * Guarantor: FRANCO HERNANDEZ Account Type Relation to Patient Date of Phone Billing Address Personal/Family [address] [place] [address] [employer] SELF PAY NO INSURANCE Member Subscriber Plan / Payer (Ef fective for All Dates) Name:Bobbi Hernandezly Member ID:Not on file Relation to Subscriber:Not on file Name:FRANCO HERNANDEZ Subscriber ID:Not on file Address: [address] [place] [phone] Payer ID:Not on file Group ID:Not on file Type:Self Pay Address: [place], [place] * Guarantor: FRANCO HERNANDEZ Account Type Relation to Patient Date of Phone Billing Address Personal/Family [address] [place] [address] [employer] SELF PAY NO INSURANCE Member Subscriber Plan / Payer (Ef fective for All Dates) Name:Ida Hernandez Member ID:Not on file Relation to Subscriber:Not on file Name:FRANCO HERNANDEZ Subscriber ID:Not on file Address: [address] [place] [address] Payer ID:Not on file Group ID:Not on file Type:Self Pay Address: [place], [place] Care Teams Asphalt Paving Supervisor Relationship Specialty Start Date End Date Santos Faria DO [address] [facility] [address] [facility] [address] [place] [id number] PCP - General 10/17/22 Abhinav Santos MD [address] [facility] [address] [place] [address] Medical Oncology 01/31/24
--- OUTSIDE RECORDS SUMMARY | 2025-03-02 11:00 | XMS_ITS | Encounter Summary ---
Author Organization [facility] Address [address] [place] [address] Care Team Providers Care Auto Hiker Name Role Phone Venkatesh Rodriguez DO Primary Care Provider [phone] Encounter Details Date Type Department Care Team ([facility] Contact Info) Description 01/30/2023 Telephone [facility] Oncology and Hematology [address] [place] [address] Abhinav Santos MD [facility] [employer] [address] [place] [address] Social History Tobacco Use Types Packs/Day Years Used Date Smoking Tobacco: Former Cigarettes Smokeless Tobacco: Never Alcohol Use Standard Drinks/Week Comments Yes 0 (1 standard drink = 0.6 oz pur e alcohol) rare Sex and Gender Information Value Date Recorded Sex Assigned at Not on file Legal Sex Male 8:54 AM CDT Gender Identity Not on file Sexual Orientation Not on file documented as of this encounter Plan of Treatment Upcoming Encounters Date Type Department Care Team ([facility] Contact Info) Description 03/13/2025 9:30 AM CDT Office Visit [facility] Oncology [facility] Hematology [address] [place] [address] Abhinav Santos MD [facility] [employer] [address] [place] [address] documented as of this encounter Visit Diagnoses Not on filedocumented in this encounter Care Teams Auto Hiker Relationship Specialty Start Date End Date Venkatesh Rodriguez DO [address] [facility] [address] [place] [address] PCP - General Internal Medicine 10/29/24 documented as of this encounter
--- OUTSIDE RECORDS SUMMARY | 2025-03-02 11:00 | XMS_ITS | Clinical Summary ---
[facility] Address [address] [place] [address] Care Team Providers Care Geriatric Care Manager Name Role Phone Venkatesh Rodriguez DO Primary Care Provider [phone] Allergies Active Allergy Reactions Criticality Noted Date Comments Penicillin Hives High 01/18/2023 Medications pantoprazole (PROTONIX) 40 mg Tablet, Delayed Release (E.C.) Take 40 mg by mouth daily. 3 Active ondansetron (Zofran) 8 mg Tablet Take 1 Tablet (8 mg) by mouth every 8 hours as needed for Nausea/Emesis. 30 Tablet 3 3 Active lidocaine-pril ocaine (EMLA) 2.5-2.5 % Cream Apply to affected area see administration instructions. 30 Gram 3 3 Active ferrous sulfate 325 mg (65 mg iron) tablet Take 325 mg by mouth daily. Active megestroL (MEGACE) 400 mg/10 mL (40 mg/mL) suspension Take 5 mL (200 mg) by mouth daily. 240 mL 1 3 Active potassium chloride (KLOR-CON M10) 10 mEq Extended Release tablet TAKE 1 TABLET(10 MEQ) BY MOUTH TWICE DAILY 30 Tablet 1 4 Active Active Problems Problem Noted Date Diagnosed Date Colon carcinoma 01/18/2023 Encounters Date Type Department Care Team Description 02/24/2025 External Device Data [facility] ABSTRACTION Provider, Abstract 02/24/2025 External Device Data [facility] ABSTRACTION Provider, Abstract 02/11/2025 External Device Data [facility] ABSTRACTION Provider, Abstract 01/27/2025 External Device Data [facility] ABSTRACTION Provider, Abstract 01/07/2025 External Device Data [facility] ABSTRACTION Provider, Abstract 01/07/2025 External Device Data [facility] ABSTRACTION Provider, Abstract 01/07/2025 External Device Data [facility] ABSTRACTION Provider, Abstract 12/16/2024 External Device Data [facility] ABSTRACTION Provider, Abstract from Last 3 Months Family History Medical History Relation Name Comments Leukemia Brother No Known Problems Daughter Cancer Father Pancreatic Cancer Mother No Known Problems Sister 1 No Known Problems Sister 2 Relation Name Status Comments Brother Alive Daughter Alive Father Mother Sister 1 Alive Sister 2 Alive Social History Tobacco Use Types Packs/Day Years Used Date Smoking Tobacco: Former Cigarettes Smokeless Tobacco: Never Tobacco Cessation:Counseling Given: Not Answered Alcohol Use Standard Drinks/Week Comments Yes 0 (1 standard drink = 0.6 oz pur e alcohol) rare Sex and Gender Information Value Date Recorded Sex Assigned at Not on file Legal Sex Male 8:54 AM CDT Gender Identity Not on file Sexual Orientation Not on file Last Filed Vital Signs Vital Sign Reading Time Taken Comments Blood Pressure 137/70 10/29/2024 2:09 PM CDT Pulse 89 10/29/2024 2:09 PM CDT Temperature 37.1 C (98.8 F) 10/29/2024 2:09 PM CDT Respiratory Rate 15 10/29/2024 2:09 PM CDT Oxygen Saturation 96% 10/29/2024 2:09 PM CDT Inhaled Oxygen Concentration - - Weight 71.7 kg (158 lb) 10/29/2024 2:09 PM CDT Height 175.3 cm (5' 9) 01/18/2023 2:50 PM CDT Body Mass Index 23.33 01/18/2023 2:50 PM CDT Plan of Treatment Upcoming Encounters Date Type Department Care Team (Late st Contact Info) Description 03/13/2025 9:30 AM CDT Office Visit [facility] Oncology and Hematology - [address] [place] [address] Abhinav Santos MD [address] [facility] [address] [place] [address] Health Maintenance Due Date Last Done Comments DTAP/TDAP/TD VACCINES (1 - Tdap) 1972 PNEUMOCOCCAL VACCINE 50+ YEARS (1 of 1 - PCV) 05/05/20 03 ZOSTER VACCINE (1 of 2) 2003 RSV VACCINE (60+ or ) (1 - Risk 60-74 years 1-dose series) 2013 Abdominal Aortic Aneurysm (AAA) Screening 2018 Medicare Advantage ([place]) Prev entative Visit/Annual Wellness Visit 06/25/2024 INFLUENZA VACCINE (#1) 2025 04/11/[address] [facility] PPO [facility] Care Teams Geriatric Care Manager Relationship Specialty Start Date End Date Venkatesh Rodriguez DO [address] [facility] [address] [place] [address] PCP - General Internal Medicine 10/29/24
--- OUTSIDE RECORDS SUMMARY | 2025-03-02 11:00 | XMS_ITS | Encounter Summary ---
Author Organization [facility] [employer] [facility] Address [address] [place] [address] Care Team Providers Care Supply Chain Project Manager Name Role Phone Venkatesh Rodriguez DO Primary Care Provider [phone] Encounter Details Date Type Department Care Team ([facility] Contact Info) Description 02/15/2023 Abstract [facility] Oncology and Hematology [address] [place] [address] Abhinav Santos MD [facility] [employer] [address] [place] [address] Social History Tobacco Use Types Packs/Day [...] Encounters Date Type Department Care Team (Late Contact Info) Description 03/13/2025 9:30 AM CDT Office Visit [facility] Oncology [facility] Hematology - [address] [place] [address] Abhinav Santos MD [facility] [employer] [address] [place] [address] documented as of this encounter Visit Diagnoses Not on filedocumented in this encounter Care Teams Supply Chain Project Manager Relationship Specialty Start Date End Date Venkatesh Rodriguez DO [address] [facility] [address] [place] [address] PCP - General Internal Medicine 10/29/24 documented as of this encounter
[2025-03-02 12:33] LABS: Estimated Glomerular Filt Rate > 60
== END 2025-03-02 10:39 | disposition home or self-care (01) ==
PROVIDERS: PCP Internal Medicine; Visit Provider Internal Medicine Hematology & Oncology
DX: C18.9 Malignant neoplasm of colon, unspecified (principal); K44.9 Diaphragmatic hernia without obstruction or gangrene
CPT/HCPCS: 36415; 74177; 82565; Q9967

== ENCOUNTER 2025-03-12 08:21 | Outpatient (CLI) | payer MEDICARE, SELFPAY ==
--- OUTSIDE RECORDS SUMMARY | 2025-03-12 08:40 | XMS_ITS | Encounter Summary ---
Author Organization [facility] Address [address] [place] [address] Care Team Providers Care Clay Processing Factory Worker Name Role Phone Venkatesh Rodriguez DO Primary Care Provider [phone] Encounter Details Date Type Department Care Team (Late st Contact Info) Description 03/10/2025 External Device Data [facility] ABSTRACTION Provider, Abstract NO ADDRESS ON FILE Social History Tobacco Use Types Packs/Day Years [...] Description 03/13/2025 9:30 AM CDT Office Visit [facility] Oncology and Hematology - [address] [facility] [address] [place] [address] Abhinav Santos MD [address] [facility] [address] [place] [address] documented as of this encounter Visit Diagnoses Not on filedocumented in this encounter Care Teams Clay Processing Factory Worker Relationship Specialty Start Date End Date Venkatesh Rodriguez DO [address] [facility] [address] [facility] [address] [place] [id number] PCP - General Internal Medicine 10/29/24 documented as of this encounter
--- OUTSIDE RECORDS SUMMARY | 2025-03-12 08:40 | XMS_ITS | Clinical Summary ---
Author Organization [facility] Address [address] [facility] [place] [address] Care Team Providers Care Firearms Assembly Supervisor Name Role Phone Venkatesh Rodriguez DO Primary Care Provider [phone] Allergies Active Allergy Reactions Criticality Noted Date [...] Encounters Date Type Department Care Team Description 03/11/2025 Orders Only [facility] Oncology and Hematology - [address] [facility] [place] [address] Abhinav Santos MD 03/10/2025 External Device Data [facility] ABSTRACTION Provider, Abstract 03/10/2025 Orders Only [facility] Oncology and Hematology - [address] [place] [address] Abhinav Santos MD 02/24/2025 External Device Data ST[facility] ABSTRACTION Provider, [...] Description 03/13/2025 9:30 AM CDT Office Visit [facility] Oncology and Hematology - [address] [facility] [address] [place] [address] Abhinav Santos MD [address] [facility] [address] [place] [address] Health Maintenance Due Date Last Done Comments DTAP/TDAP/TD VACCINES (1 - Tdap) 1972 PNEUMOCOCCAL VACCINE 50+ YEARS (1 of 1 - PCV) 05/05/20 03 ZOSTER VACCINE (1 of 2) 2003 RSV VACCINE (60+ or ) (1 - Risk 60-74 years 1-dose series) 2013 Abdominal Aortic Aneurysm (AAA) Screening 2018 INFLUENZA VACCINE (#1) 2025 04/11/2018 Procedures Procedure Name Priority Date/Time Associated Diagnosis Comments COMPREHENSIVE METABOLIC PANEL Routine 03/10/2025 3:[address] ABDOMEN PELVIS W CONTRAST Routine 03/02/2025 10:59 AM CDT from Last 3 Months Results * COMPREHENSIVE METABOLIC PANEL (03/10/2025 3:10 PM CDT) Blood Abhinav Santos MD CHEMISTRY ORDERABLES Final Resu lt * CT ABDOMEN PELVIS W CONTRAST (03/02/2025 10:59 AM CDT) Anatomical Region Laterality Modality Abdomen Computed Tomogra phy Abhinav Santos MD CT ORDERABLES Final Result from Last 3 Months [facility] Care Teams Firearms Assembly Supervisor Relationship Specialty Start Date End Date Venkatesh Rodriguez DO [address] [facility] [address] [facility] [address] [place] [address] PCP - General Internal Medicine 10/29/24
--- OUTSIDE RECORDS SUMMARY | 2025-03-12 08:40 | XMS_ITS | Encounter Summary ---
Author Organization [facility] [employer] [facility] Address [address] [place] [address] Care Team Providers Care Cemetery Vault Installer Name Role Phone Venkatesh Rodriguez DO Primary Care Provider [phone] Encounter Details Date Type Department Care Team ([facility] Contact Info) Description 03/11/2025 Orders Only [facility] Oncology and Hematology [address] [place] [address] Abhinav Santos MD [facility] [address] [place] [address] Social History Tobacco Use Types Packs/Day [...] 03/13/2025 9:30 AM CDT Office Visit [facility] Oncology and Hematology [address] [place] [address] Abhinav Santos MD [facility] [address] [place] [address] documented as of this encounter Procedures Procedure Name Priority Date/Time Associated Diagnosis Comments CT ABDOMEN PELVIS W CONTRAST Routine 03/02/2025 10:59 AM CDT documented in this encounter Results * CT ABDOMEN PELVIS W CONTRAST (03/02/2025 10:59 AM CDT) Anatomical Region Laterality Modality Abdomen Computed Tomogra phy Abhinav Santos MD CT ORDERABLES Final Result documented in this encounter Visit Diagnoses Not on filedocumented in this encounter Care Teams Cemetery Vault Installer Relationship Specialty Start Date End Date Venkatesh Rodriguez DO [address] [facility] [address] [place] [address] PCP - General Internal Medicine 10/29/24 documented as of this encounter
--- OUTSIDE RECORDS SUMMARY | 2025-03-12 08:40 | XMS_ITS | Encounter Summary ---
Author Organization [facility] [employer] [facility] Address [address] [place] [address] Care Team Providers Care Chemistry Faculty Member Name Role Phone Venkatesh Rodriguez DO Primary Care Provider [phone] Encounter Details Date Type Department Care Team ([facility] Contact Info) Description 03/10/2025 Orders Only [facility] Oncology and Hematology [address] [place] [address] Abhinav Santos MD [facility] [employer] [address] [place] [address] Social History Tobacco Use Types Packs/Day [...] Description 03/13/2025 9:30 AM CDT Office Visit [facility] Oncology and Hematology - [address] [place] [address] Abhinav Santos MD [facility] [employer] [address] [place] [address] documented as of this encounter Procedures Procedure Name Priority Date/Time Associated Diagnosis Comments COMPREHENSIVE METABOLIC PANEL Routine 03/10/2025 3:10 PM CDT documented in this encounter Results * COMPREHENSIVE METABOLIC PANEL (03/10/2025 3:10 PM CDT) Blood us Abhinav Santos MD CHEMISTRY ORDERABLES Final Resu lt documented in this encounter Visit Diagnoses Not on filedocumented in this encounter Care Teams Chemistry Faculty Member Relationship Specialty Start Date End Date Venkatesh Rodriguez DO [address] [facility] [address] [place] [address] PCP - General Internal Medicine 10/29/24 documented as of this encounter
--- OUTSIDE RECORDS SUMMARY | 2025-03-12 08:41 | XMS_ITS | Clinical Summary ---
Author Organization [facility] Address [address] [facility] [place] [address] Care Team Providers Care Customs And Border Protection Inspector Name Role Phone BienvenidoHemanthSantoselizabeth Dbuon DO Primary Care Provider [phone] Abhinav Santos MD Unavailable [phone] Source Comments [facility],non-owned Affiliates and Associated Physician Practices is amultiple site organization consisting of ambulatory clinics and hospital sitesin [place], [place], [place] and [place]. This disclosure is being madepursuant to the Care Everywhere program and may not contain all information available regarding this patient. 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 [address] [employer] MEDICARE ADV HMO & PPO * Guarantor: FRANCO HERNANDEZ Type Relation to Patient Date of Phone Billing Address Personal/Family [address] [place] [address] [place] [address] [employer] SELF PAY NO INSURANCE Member Subscriber Plan / Payer (Ef fective for All Dates) Name:Ida Hernandez Member ID:Not on file Relation to Subscriber:Not on file Name:FRANCO HERNANDEZ Subscriber ID:Not on file Address: [address] [place] [id number] Payer ID:Not on file Group ID:Not on file Type:Self Pay Address: [place], [place] * Guarantor: FRANCO HERNANDEZ Account Type Relation to Patient Date of Phone Billing Address Personal/Family [address] [place] [address] [employer] SELF PAY NO INSURANCE Member Subscriber Plan / Payer (Ef fective for All Dates) Name:Bobbi Hernandezly Member ID:Not on file Relation to Subscriber:Not on file Name:FRANCO HERNANDEZ Subscriber ID:Not on file Address: [address] [place] [id number] Payer ID:Not on file Group ID:Not on file Type:Self Pay Address: [place], [place] * Guarantor: FRANCO HERNANDEZ Account Type Relation to Patient Date of Phone Billing Address Personal/Family [address] [place] [address] [employer] SELF PAY NO INSURANCE Member Subscriber Plan / Payer (Ef fective for All Dates) Name:Ida Hernandez Member ID:Not on file Relation to Subscriber:Not on file Name:FRANCO HERNANDEZ Subscriber ID:Not on file Address: [address] [place] [address] Payer ID:Not on file Group ID:Not on file Type:Self Pay Address: [place], [place] Care Teams Customs And Border Protection Inspector Relationship Specialty Start Date End Date Santos Faria DO [address] [facility] [address] [facility] [address] [place] [id number] PCP - General 10/17/22 Abhinav Santos MD [address] [facility] [address] [place] [address] Medical Oncology 01/31/24
--- OUTSIDE RECORDS SUMMARY | 2025-03-12 08:41 | XMS_ITS | Encounter Summary ---
Author Organization [facility] Address [address] [place] [address] Care Team Providers Care Telecom Sales Consultant Name Role Phone Venkatesh Rodriguez DO Primary Care Provider [phone] Encounter Details Date Type Department Care Team ([facility] Contact Info) Description 02/15/2023 Abstract [facility] Oncology and Hematology - [place] [address] [place] [address] Abhinav Santos MD [facility] [employer] [address] [place] [address] Social History Tobacco Use Types Packs/Day [...] Description 03/13/2025 9:30 AM CDT Office Visit [facility] - [place] [address] [place] [address] Abhinav Santos MD [facility] [employer] [address] [place] [address] documented as of this encounter Visit Diagnoses Not on filedocumented in this encounter Care Teams Telecom Sales Consultant Relationship Specialty Start Date End Date Venkatesh Rodriguez DO [address] [facility] [address] [place] [address] PCP - General Internal Medicine 10/29/24 documented as of this encounter
--- OUTSIDE RECORDS SUMMARY | 2025-03-12 08:41 | XMS_ITS | Encounter Summary ---
Author Organization [facility] Address [address] [place] [address] Care Team Providers Care Clothing Supervisor Name Role Phone Venkatesh Rodriguez DO Primary Care Provider [phone] Encounter Details Date Type Department Care Team ([facility] Contact Info) Description 01/30/2023 Telephone [facility] Oncology and Hematology [address] [place] [address] Abhinav Santos MD [facility] [employer] [address] [place] [address] Social History Tobacco Use Types Packs/Day [...] Upcoming Encounters Date Type Department Care Team ([facility] Contact Info) Description 03/13/2025 9:30 AM CDT Office Visit [facility]cology [facility] [place] [address] [place] [address] Abhinav Santos MD [facility] [employer] [address] [place] [address] documented as of this encounter Visit Diagnoses Not on filedocumented in this encounter Care Teams Clothing Supervisor Relationship Specialty Start Date End Date Venkatesh Rodriguez DO 68[address] [facility] [address] [place] [address] PCP - General Internal Medicine 10/29/24 documented as of this encounter
[2025-03-12 09:05] LABS: Cholesterol 217 mg/dL (0-200); HDL Direct 90 mg/dL; Triglycerides 64 mg/dL (<150)
[2025-03-12 09:18] LABS: Hemoglobin A1C 5.3 % (<5.7)
[2025-03-12 09:41] LABS: Prostate Specific Antigen 4.3 ng/mL (< OR = 4.0)
[2025-03-12 10:00] LABS: Vitamin B12 899.0 pg/mL (239-931)
== END 2025-03-12 08:22 | disposition home or self-care (01) ==
LOC: ANHLAB 08:22
PROVIDERS: PCP Internal Medicine; Visit Provider Internal Medicine
DX: R73.9 Hyperglycemia, unspecified (principal); Z12.5 Encounter for screening for malignant neoplasm of prostate; I10 Essential (primary) hypertension; E53.8 Deficiency of other specified B group vitamins
CPT/HCPCS: 36415; 80061; 82607; 83036; 84153; G0103

== ENCOUNTER 2025-03-18 10:02 | Outpatient (CLI) | payer MEDICARE, SELFPAY ==
--- OUTSIDE RECORDS SUMMARY | 2025-03-18 10:59 | XMS_ITS | Encounter Summary ---
Author Organization [facility] Address [address] [place] [address] Care Team Providers Care Stitch Bonding Machine Tender Name Role Phone Venkatesh Rodriguez DO Primary Care Provider [phone] Encounter Details Date Type Department Care Team (Late Contact Info) Description 03/11/2025 Orders Only [facility] Oncology and Hematology - [place] [address] [facility] 200 [place] [address] Abhinav Santos MD [address] [facility] [address] [place] [address] Social History Tobacco Use Types Packs/Day [...] Department Care Team (Late Contact Info) Description 03/27/2025 12:30 PM CDT Hospital Encounter [facility] Imaging Services [facility] [address] [place] [address] [place] [address] [facility] [address] [place] [address] 03/31/2025 10:30 AM CDT Office Visit [facility] Surgical Specialists [facility] [address] [facility] [address] [place] [address] [place] [address] [facility] [address] [place] [address] 03/31/2025 4:30 PM CDT Telephone Check Up [facility] Oncology and Hematology - [place] [address] [facility] [address] [place] [address] Abhinav Santos MD [address] [facility] [address] [place] [address] documented as of this encounter Procedures [...] on filedocumented in this encounter Care Teams Stitch Bonding Machine Tender Relationship Specialty Start Date End Date Venkatesh Rodriguez DO [address] [facility] [address] [place] [address] PCP - General Internal Medicine 10/29/24 documented as of this encounter
--- OUTSIDE RECORDS SUMMARY | 2025-03-18 10:59 | XMS_ITS | Clinical Summary ---
Author Organization [facility] Atif sanchez [facility] Address [address] [place] [address] Care Team Providers Care Addressing Machine Operator Name Role Phone Venkatesh Rodriguez DO Primary Care Provider [phone] Allergies Active Allergy Reactions Criticality Noted Date [...] Encounters Date Type Department Care Team Description 03/16/2025 Telephone [facility] Surgical Specialists [facility] [address] [place] [address] Alexis Nance MD Referral ( ); Appointment Notification ( to ) 03/13/2025 9:30 AM CDT Office Visit [facility] Oncology and Hematology [facility] [address] [place] [address] Abhinav Santos MD Colon carcinoma (CMS/HCC) (Primary Dx) 03/13/2025 Orders Only [facility] Surgical [facility]ists [facility] [address] [facility] [address] [place] [address] Alexis Nance MD Colon carcinoma (CMS/HCC) (Primary Dx); Liver lesion 03/11/2025 Orders Only [facility] Oncology and Hematology [facility] [address] [place] [address] Abhinav Santos MD 03/10/2025 External Device Data STL ABSTRACTION Provider, Abstract 03/10/2025 Orders Only [facility] Oncology and Hematology [facility] [address] [place] [address] Abhinav Santos MD 02/24/2025 External Device Data [...] Sign Reading Time Taken Comments Blood Pressure 152/81 03/13/2025 9:40 AM CDT Pulse 80 03/13/2025 9:37 AM CDT Temperature 36.7 C (98.1 F) 03/13/2025 9:37 AM CDT Respiratory Rate 15 03/13/2025 9:37 AM CDT Oxygen Saturation 98% 03/13/2025 9:37 AM CDT Inhaled Oxygen Concentration - - Weight 73.5 kg (162 lb) 03/13/2025 9:37 AM CDT Height 175.3 cm (5' 9) 01/18/2023 2:50 PM CDT Body Mass Index 23.92 01/18/2023 2:50 PM CDT Plan of Treatment Upcoming Encounters Date Type Department Care Team (Late st Contact Info) Description 03/27/2025 12:30 PM CDT Hospital Encounter [facility] [address] [place] [address] [place] [address] [facility] [address] [place] [address] 03/31/2025 10:30 AM CDT Office Visit [facility] Surgical Specialists [facility] [address] [facility] [address] [place] [address] [place] [address] [facility] [address] [place] [address] 03/31/2025 4:30 PM CDT Telephone Check Up [facility] Oncology and Hematology - [place] [address] [address] Abhinav Santos MD [address] [facility] [address] [place] [address] Health Maintenance Due Date Last [...] Visit 06/25/2024 INFLUENZA VACCINE (#1) 2025 04/11/2018 Procedures Procedure Name Priority Date/Time Associated Diagnosis Comments [facility] NORMAL BLOOD Routine 10:58 AM CDT Colon carcinoma (CMS/HCC) COMPREHENSIVE METABOLIC PANEL Routine 03/10/2025 3:[address] ABDOMEN PELVIS W CONTRAST Routine 03/02/2025 10:59 AM CDT from Last 3 Months Results * [facility] X[facility] NORMAL BLOOD (03/13/2025 10:58 AM CDT) [facility] 03/13/2025 11:00 PM CDT [facility] Comment:See NGS Report for R esults. Blood specimen (specimen) 03/13/2025 10:58 AM CDT 03/13/2025 10:59 AM CDT us Abhinav Santos MD MOLECULAR ORDERABLES Final Resu lt [facility] [address] [facility], [address] [place] [address], [facility] [address] [facility], [address] [place] [address] * COMPREHENSIVE METABOLIC PANEL (03/10/2025 3:10 PM CDT) Blood us Abhinav Santos MD CHEMISTRY ORDERABLES Final Resu lt * CT ABDOMEN PELVIS W CONTRAST (03/02/2025 10:59 AM CDT) Anatomical Region Laterality Modality Abdomen Computed Tomogra phy Abhinav Santos MD CT ORDERABLES Final Result from Last 3 Months Insurance [facility] PPO [facility] Care Teams Addressing Machine Operator Relationship Specialty Start Date End Date Venkatesh Rodriguez DO 68[address] [facility] [address] [place] [address] PCP - General Internal Medicine 10/29/24
--- OUTSIDE RECORDS SUMMARY | 2025-03-18 10:59 | XMS_ITS | Clinical Summary ---
Author Organization [facility] Address [address] [facility] [place] [address] Care Team Providers Care Assembly Machine Set Up Mechanic Name Role Phone BienvenidoHemanthSantoselizabeth Dubon DO Primary Care Provider [phone] Abhinav Santos MD Unavailable [phone] Source Comments [facility],non-owned Affiliates and Associated Physician Practices is amultiple site organization consisting of ambulatory clinics and hospital sitesin [place], [place], [place] and [place]. This disclosure is being madepursuant to the Care Everywhere program and may not contain all information available regarding this patient. 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 [address] [employer] MEDICARE ADV HMO & PPO * Guarantor: FRANCO HERNANDEZ Type Relation to Patient Date of Phone Billing Address Personal/Family [address] [place] [address] [place] [address] [employer] SELF PAY NO INSURANCE Member Subscriber Plan / Payer (Ef fective for All Dates) Name:Ida Hernandez Member ID:Not on file Relation to Subscriber:Not on file Name:FRANCO HERNANDEZ Subscriber ID:Not on file Address: [address] [place] [id number] Payer ID:Not on file Group ID:Not on file Type:Self Pay Address: [place], [place] * Guarantor: FRANCO HERNANDEZ Account Type Relation to Patient Date of Phone Billing Address Personal/Family [address] [place] [address] [employer] SELF PAY NO INSURANCE Member Subscriber Plan / Payer (Ef fective for All Dates) Name:Bobbi Hernandezly Member ID:Not on file Relation to Subscriber:Not on file Name:FRANCO HERNANDEZ Subscriber ID:Not on file Address: [address] [place] [id number] Payer ID:Not on file Group ID:Not on file Type:Self Pay Address: [place], [place] * Guarantor: FRANCO HERNANDEZ Account Type Relation to Patient Date of Phone Billing Address Personal/Family [address] [place] [address] [employer] SELF PAY NO INSURANCE Member Subscriber Plan / Payer (Ef fective for All Dates) Name:Ida Hernandez Member ID:Not on file Relation to Subscriber:Not on file Name:FRANCO HERNANDEZ Subscriber ID:Not on file Address: [address] [place] [address] Payer ID:Not on file Group ID:Not on file Type:Self Pay Address: [place] Care Teams Assembly Machine Set Up Mechanic Relationship Specialty Start Date End Date Santos Faria DO 68[address] [facility] [address] [facility] 21 [place] [address] PCP - General 10/17/22 Abhinav Santos MD [address] [facility] 100 [place] [address] Medical Oncology 01/31/24
--- OUTSIDE RECORDS SUMMARY | 2025-03-18 10:59 | XMS_ITS | Encounter Summary ---
Author Organization [facility] [employer] [facility] Address [address] [place] [address] Care Team Providers Care Director Of Industrial Relations Name Role Phone Venkatesh Rodriguez DO Primary Care Provider [phone] Encounter Details Date Type Department Care Team (Late Contact Info) Description 01/30/2023 Telephone [facility] Oncology and Hematology - [place] [address] [facility] 200 [place] [address] Abhinav Santos MD 2[address] [facility] [address] [place] [address] Social History Tobacco Use Types [...] Description 03/27/2025 12:30 PM CDT Hospital Encounter [facility] Imaging Services [facility] [address] [place] [address] [place] [address] [facility] [address] [place] [address] 03/31/2025 10:30 AM CDT Office Visit [facility] Surgical Specialists [facility] [address] [facility] [address] [place] [address] [place] [address] [facility] [address] [place] [address] 03/31/2025 4:30 PM CDT Telephone Check Up [facility] Oncology and Hematology - [place] 2[address] [facility] [address] [place] [address] Abhinav Santos MD 2[address] [facility] [address] [place] [address] documented as of this encounter Visit Diagnoses Not on filedocumented in this encounter Care Teams Director Of Industrial Relations Relationship Specialty Start Date End Date Venkatesh Rodriguez DO 6812 [facility] [address] [place] [address] PCP - General Internal Medicine 10/29/24 documented as of this encounter
--- OUTSIDE RECORDS SUMMARY | 2025-03-18 10:59 | XMS_ITS | Encounter Summary ---
Author Organization [facility] Address [address] [place] [address] Care Team Providers Care Education Nurse Name Role Phone Venkatesh Rodriguez DO Primary Care Provider [phone] Encounter Details Date Type Department Care Team (Late Contact Info) Description 02/15/2023 Abstract [facility] Oncology and Hematology - [place] 2227 [facility] [address] [place] [address] Abhinav Santos MD 2227 [facility] [address] [place] [address] Social History Tobacco Use Types [...] Description 03/27/2025 12:30 PM CDT Hospital Encounter [facility] Imaging Services [facility] [address] [place] [address] [place] [address] [facility] [address] [place] [address] 03/31/2025 10:30 AM CDT Office Visit [facility] Surgical Specialists [facility] [address] [facility] [address] [place] [address] [place] [address] [facility] [address] [place] [address] 03/31/2025 4:30 PM CDT Telephone Check Up [facility] Oncology and Hematology - [place] 2[address] [facility] 200 [place] [address] Abhinav Santos MD 2[address] [facility] [address] [place] [address] documented as of this encounter Visit Diagnoses Not on filedocumented in this encounter Care Teams Education Nurse Relationship Specialty Start Date End Date Venkatesh Rodriguez DO 6812 [facility] [address] [place] [address] PCP - General Internal Medicine 10/29/24 documented as of this encounter
[2025-03-18 13:36] LABS: INR 0.9; Prothrombin Time 12.8 Seconds (11.1-14.7)
== END 2025-03-18 10:03 | disposition home or self-care (01) ==
PROVIDERS: PCP Internal Medicine; Referring Provider Internal Medicine Hematology & Oncology
DX: C18.9 Malignant neoplasm of colon, unspecified (principal); K76.89 Other specified diseases of liver
CPT/HCPCS: 36415; 85610

== ENCOUNTER 2025-03-24 10:38 | Outpatient (CLI) | payer MEDICARE, SELFPAY ==
--- NOTE | ~2025-03-24 | PE_ITS ---
EXAMINATION: PET skull to mid thigh DATE: 03/24/2025 12:55 INDICATION: Colon cancer TECHNIQUE: Blood glucose level was 113 mg/dL. 9.826 mCi of 18-fluorodeoxyglucose (18-FDG) was administered i.v. Low dose computed tomography (CT) images were acquired from the base of the brain to the proximal thighs for attenuation correction and anatomic localization. Positron emission tomography (PET) images were acquired in the same distribution beginning 52 minutes after injection. Images including fused PET/CT images were reconstructed in axial, coronal, and sagittal planes. Automated exposure control technique was employed. The dose- length product was 541.35mGy-cm. COMPARISON: CT dated 03/02/2025, 06/03/2024 and PET/CT dated 01/22/2024 FINDINGS: Head/neck: There is symmetric increased activity in the oral cavity, palatine tonsils, parotid glands, submandibular glands, laryngeal muscles, ocular muscles and anterior upper cervical paraspinal musculature without CT correlate, likely physiologic. No pathologically enlarged cervical lymphadenopathy or suspicious foci of increased FDG uptake in the visualized head or neck. Chest: Mild emphysema. No suspicious pulmonary nodules, pneumonia, pulmonary edema or pleural effusion. Heart size is normal. No pericardial effusion. Distal tip of a right subclavian central venous port catheter at the superior cavoatrial junction. Thoracic aorta is normal in caliber. Moderate-sized sliding-type hiatal hernia. No pathologically enlarged or FDG avid thoracic lymphadenopathy. Mild bilateral gynecomastia. Abdomen/pelvis/proximal thighs: There are couple approximately 1.5 cm poorly defined hypodense nodules in the left hepatic lobe with moderate increased FDG uptake with maximal SUV of 11.5 and at the posterior inferior right hepatic lobe with maximal SUV of 6.6. There is an additional subcentimeter focus of increased FDG uptake in the right hepatic lobe near the mikael hepatis with maximal SUV of 4.4 which is without evident correlate on the CT images. These lesions are suspicious for metastatic disease. Additional subcentimeter low-attenuation cyst in the inferior right hepatic lobe without evident FDG activity. Physiologic renal accumulation and excretion of FDG activity in the kidneys, bladder and along portions of ureters. Photopenic defects associated with a few bilateral low-attenuation renal cysts the largest on the right measuring 4.7 cm. Small calcified gallstone in the dependent aspect of the normal gallbladder. Pancreas, spleen and bilateral adrenal glands are normal. Postoperative change of proximal right hemicolectomy with ileocolic anastomosis in the right abdomen. Mild uptake scattered throughout the bowels without radiologic correlate, also likely physiologic. Prominent diverticulosis along the sigmoid and descending colon without adjacent from trace stranding to suggest diverticulitis. No other abnormal foci of increased FDG uptake or pathologically enlarged lymphadenopathy in the abdomen, pelvis or proximal thighs. Musculoskeletal: Severe cervical and mild thoracic and lumbar spondylosis. No suspicious lytic, blastic or abnormally FDG avid bone lesions to suggest metastatic disease. IMPRESSION: 1. 3 FDG avid hepatic masses which can be seen on CT dated 03/02/2025, new since 06/03/2024, most consistent with metastatic disease. No other lesions suspicious for metastatic disease in the neck, chest, abdomen or pelvis. 2. Cholelithiasis. 3. Moderate-sized sliding-type hiatal hernia. 4. Diverticulosis. Reviewed, dictated and finalized at location A. IMPRESSION: 1. 3 FDG avid hepatic masses which can be seen on CT dated 03/02/2025, new since 06/03/2024, most consistent with metastatic disease. No other lesions suspiciou s for metastatic disease in the neck, chest, abdomen or pelvis. 2. Cholelithiasis. 3. Moderate-sized sliding-type hiatal hernia. 4. Diverticulosis.
--- OUTSIDE RECORDS SUMMARY | 2025-03-24 11:26 | XMS_ITS | Encounter Summary ---
Author Organization [facility] Address [address] [place] [address] Care Team Providers Care Telecommunications Project Manager Name Role Phone Venkatesh Rodriguez DO Primary Care Provider [phone] Encounter Details Date Type Department Care Team (Late st Contact Info) Description 03/24/2025 Orders Only [facility] Surgical [facility]ists [facility] [id number] [place] [address] [address] [place] [address] [facility] Colon carcinoma (CMS/HCC); Other specified diseases of liver Social History Tobacco Use Types Packs/Day Years [...] Description 03/27/2025 12:30 PM CDT Hospital Encounter [facility] Imaging Services [facility] [address] [place] [address] [place] [address] [place] [address] 03/31/2025 10:30 AM CDT Office Visit [facility] [address] [facility] [address] [place] [address] [place] [address] [place] [address] 03/31/2025 4:30 PM CDT Telephone Check Up [facility] Oncology and Hematology [facility] 2[address] [facility] 200 [place] [address] Abhinav Santos MD 2227 [facility] [address] [place] [address] documented as of this encounter Visit Diagnoses Diagnosis Colon carcinoma (CMS/HCC) Malignant neoplasm of colon, unspecified site Other specified diseases of liver documented in this encounter Care Teams Telecommunications Project Manager Relationship Specialty Start Date End Date Venkatesh Rodriguez DO 6812 [facility] [address] [place] [address] PCP - General Internal Medicine 10/29/24 documented as of this encounter
--- OUTSIDE RECORDS SUMMARY | 2025-03-24 11:27 | XMS_ITS | Encounter Summary ---
Author Organization [facility] Address [address] [place] [address] Care Team Providers Care Web Site Developer Name Role Phone Venkatesh Rodriguez DO Primary Care Provider [phone] Encounter Details Date Type Department Care Team (Late Contact Info) Description 02/15/2023 Abstract [facility] Oncology and Hematology - [place] 2[address] [facility] [address] [place] [address] Abhinav Santos MD 2[address] [facility] [address] [place] [address] Social History Tobacco Use Types [...] Description 03/27/2025 12:30 PM CDT Hospital Encounter [facility] Imaging Services [facility] [address] [place] [address] [place] [address] [facility] [address] [place] [address] 03/31/2025 10:30 AM CDT Office Visit [facility] Surgical Specialists [facility] [address] [facility] [address] [place] [address] [place] [address] [facility] [address] [place] [address] 03/31/2025 4:30 PM CDT Telephone Check Up [facility] Oncology and Hematology - [place] 2227 [facility] [address] [place] [address] Abhinav Santos MD [address] [facility] [address] [place] [address] documented as of this encounter Visit Diagnoses Not on filedocumented in this encounter Care Teams Web Site Developer Relationship Specialty Start Date End Date Venkatesh Rodriguez DO 6812 [facility] [address] [place] [address] PCP - General Internal Medicine 10/29/24 documented as of this encounter
--- OUTSIDE RECORDS SUMMARY | 2025-03-24 11:27 | XMS_ITS | Encounter Summary ---
Author Organization [facility] [employer] [facility] Address [address] [place] [address] Care Team Providers Care Meter Installer And Remover Name Role Phone Venkatesh Rodriguez DO Primary Care Provider [phone] Encounter Details Date Type Department Care Team (Late Contact Info) Description 01/30/2023 Telephone [facility] Oncology and Hematology - [place] [address] [facility] [address] [place] [address] Abhinav Santos MD [address] [facility] [address] [place] [address] Social History Tobacco Use Types [...] Description 03/27/2025 12:30 PM CDT Hospital Encounter [facility] Imaging Services [facility] [address] [place] [address] [place] [address] [facility] [address] [place] [address] 03/31/2025 10:30 AM CDT Office Visit [facility] Surgical Specialists [facility] [address] [facility] [address] [place] [address] [place] [address] [facility] [address] [place] [address] 03/31/2025 4:30 PM CDT Telephone Check Up [facility] Oncology and Hematology - [place] [address] [facility] [address] [place] [address] Abhinav Santos MD [address] [facility] [address] [place] [address] documented as of this encounter Visit Diagnoses Not on filedocumented in this encounter Care Teams Meter Installer And Remover Relationship Specialty Start Date End Date Venkatesh Rodriguez DO [address] [facility] [address] [place] [address] PCP - General Internal Medicine 10/29/24 documented as of this encounter
--- OUTSIDE RECORDS SUMMARY | 2025-03-24 11:27 | XMS_ITS | Clinical Summary ---
Author Organization [facility]- [facility] Address [address] [facility] [place] [address] Care Team Providers Care Ux Interaction Designer Name Role Phone BienvenidoHemanthSantoselizabeth Dubon DO Primary Care Provider [phone] Abhinav Santos MD Unavailable [phone] Source Comments [facility],non-owned Affiliates and Associated Physician Practices is amultiple site organization consisting of ambulatory clinics and hospital sitesin [place], [place], [place] and [place]. This disclosure is being madepursuant to the Care Everywhere program and may not contain all information available regarding this patient. 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 [address] [employer] MEDICARE ADV HMO & PPO * Guarantor: FRANCO HERNANDEZ Type Relation to Patient Date of Phone Billing Address Personal/Family [address] [place] [address] [place] [address] [employer] SELF PAY NO INSURANCE Member Subscriber Plan / Payer (Ef fective for All Dates) Name:Ida Hernandez Member ID:Not on file Relation to Subscriber:Not on file Name:FRANCO HERNANDEZ Subscriber ID:Not on file Address: [address] [place] [place] [id number] Payer ID:Not on file Group ID:Not on file Type:Self Pay Address: [place], [place] * Guarantor: FRANCO HERNANDEZ Account Type Relation to Patient Date of Phone Billing Address Personal/Family [address] [place] [address] [employer] SELF PAY NO INSURANCE Member Subscriber Plan / Payer (Ef fective for All Dates) Name:Bobbi Hernandezly Member ID:Not on file Relation to Subscriber:Not on file Name:FRANCO HERNANDEZ Subscriber ID:Not on file Address: [address] [place] [place] [id number] Payer ID:Not on file Group ID:Not on file Type:Self Pay Address: [place], [place] * Guarantor: FRANCO HERNANDEZ Account Type Relation to Patient Date of Phone Billing Address Personal/Family [address] [place] [address] [employer] SELF PAY NO INSURANCE Member Subscriber Plan / Payer (Ef fective for All Dates) Name:Ida Hernandez Member ID:Not on file Relation to Subscriber:Not on file Name:FRANCO HERNANDEZ Subscriber ID:Not on file Address: [address] [place] [address] Payer ID:Not on file Group ID:Not on file Type:Self Pay Address: [place], [place] Care Teams Ux Interaction Designer Relationship Specialty Start Date End Date Santos Faria DO [address] [facility] [address] [facility] [address] [place] [id number] PCP - General 10/17/22 Abhinav Santos MD [address] [facility] [address] [place] [address] Medical Oncology 01/31/24
--- OUTSIDE RECORDS SUMMARY | 2025-03-24 11:27 | XMS_ITS | Clinical Summary ---
Author Organization [facility] Feliceamarilisgayatri Peckeris Address [address] [facility] [address] [place] [address] Care Team Providers Care Television Camera Operator Name Role Phone Venkatesh Rodriguez Primary Care Provider [phone] Allergies Active Allergy Reactions Criticality Noted Date [...] Encounters Date Type Department Care Team Description 03/24/2025 Orders Only [facility] Surgical Specialists [facility] [id number] [place] [address] Marry Sparrow Colon carcinoma (CMS/HCC); Other specified diseases of liver 03/16/2025 Telephone [facility] Surgical Specialists [facility] [address] [facility] [address] [place] [address] Alexis Nance MD Referral ( ); Appointment Notification ( to ) 03/13/2025 9:30 AM CDT Office Visit [facility] Oncology and Hematology [facility] [address] [place] [address] Abhinav Santos MD Colon carcinoma (CMS/HCC) (Primary Dx) 03/13/2025 Orders Only [facility] Surgical Specialists [facility] [address] [facility] [address] [place] [address] Alexis Nance MD Colon carcinoma (CMS/HCC) (Primary Dx); Liver lesion 03/11/2025 Orders Only [facility] Oncology and [facility] [address] [place] [address] Abhinav Santos MD 03/10/2025 External Device Data STL ABSTRACTION Provider, Abstract 03/10/2025 Orders Only [facility] Oncology and [facility] [address] [place] [address] Abhinav Santos MD 02/24/2025 External Device Data [...] Description 03/27/2025 12:30 PM CDT Hospital Encounter [facility] Imaging Services [facility] [address] [place] [address] [place] [address] [facility] [address] [place] [address] 03/31/2025 10:30 AM CDT Office Visit [facility] Surgical Specialists [facility] [address] [facility] [address] [place] [address] [place] [address] [facility] [address] [place] [address] 03/31/2025 4:30 PM CDT Telephone Check Up [facility] Oncology and Hematology - [place] [address] [facility] [address] [place] [address] Abhinav Santos MD [address] [facility] [address] [place] [address] Health Maintenance Due Date Last Done Comments DTAP/TDAP/TD VACCINES (1 - Tdap) 1972 PNEUMOCOCCAL VACCINE 50+ YEARS (1 of 1 - PCV) 05/05/20 03 ZOSTER VACCINE (1 of 2) 2003 RSV VACCINE (60+ or ) (1 - Risk 60-74 years 1-dose series) 2013 Abdominal Aortic Aneurysm (AAA) Screening 2018 Medicare [place]age ([place]) Prev entative Visit/Annual Wellness Visit 06/25/2024 INFLUENZA VACCINE (#1) 2025 04/11/2018 Procedures Procedure Name Priority Date/Time Associated Diagnosis Comments [facility] Routine 03/20/2025 12:56 PM CDT Colon carcinoma (CMS/HCC) [facility] NORMAL BLOOD Routine 10:58 AM CDT Colon carcinoma (CMS/HCC) COMPREHENSIVE METABOLIC PANEL Routine 03/10/2025 3:[address] ABDOMEN PELVIS W CONTRAST Routine 03/02/2025 10:59 AM CDT from Last 3 Months Results * [facility] (03/20/2025 12:56 PM CDT) Reason for Study To identify mutation s relevant to patient's cancer. 03/20/2025 12:56 PM CDT [facility] Genetic Diseases Assessed Cancer 03/20/2025 12:56 PM CDT [facility] Description of Ranges of DNA Sequences Examined 105 gene liquid biopsy 12:56 PM CDT [facility] Overall Interpretation positive 03/20/2025 12:56 PM CDT [facility] [email or web address] 03/20/2025 12:56 PM CDT [facility] Comment:[facility] link Low Coverage Regions TERT 03/20/2025 12:56 PM CDT [facility] Therapy Count 3 03/20/2025 12:56 PM CDT [facility]: Potential Therapy 1 Gene: 6407^KRAS^HGNC Variant: p.A146T Match Type: snvIndel Match Type Description: KRAS p.A146T Agent: Cetuximab or Panitumumab Drug Class: Anti-EGFR MAb Tissue: Colorectal Cancer Association: Resistance Evidence Status: Consensus Evidence ID: JANENE KDB Variant: [id number]-hl-[id number] MSK Associated Evidence: MSK OncoKB, Level R1 Label: FDA On Label FDA Approved?: Yes On label?: Yes 03/20/2025 12:56 PM CDT [facility]us: Potential Therapy 2 Gene: 6407^KRAS^HGNC Variant: p.A146T Match Type: snvIndel Match Type Description: KRAS p.A146T Agent: Defactinib + Avutometinib Drug Class: Combination (FAK Inhibitor + MEK Inhibitor) Tissue: Low Grade Ovarian Serous Adenocarcinoma Association: Response Evidence Status: Consensus Evidence ID: JANENE KDB Variant: Kuyf-ls-fvmhiufr Label: FDA Off Label FDA Approved?: Yes On label?: No 03/20/2025 12:56 PM CDT [facility] Tempus: Potential Therapy 3 Gene: 8975^PIK3CA^HGNC Variant: p.Q546P Match Type: snvIndel Match Type Description: PIK3CA p.Q546P Agent: Alpelisib Drug Class: PI3K Inhibitor Tissue: Solid Tumors Association: Response Evidence Status: Clinical research Evidence ID: [id number] Evidence URL: https://www.ncbi.nlm.n ih.gov/pubmed/30236939 Evidence Title: Phosphatidylinositol 3-Kinase -Selective Inhibition With Alpelisib (DVT902) in LCX8NQ-Btytnky Solid Tumors: Results From the Pyxik-xq-Pjeia Study - PubMed KDB Variant: Ymlf-cy-dhfdmhft Label: FDA Off Label FDA Approved?: Yes On label?: No 03/20/2025 12:56 PM CDT [facility] Trial Count 3 03/20/2025 12:56 PM CDT [facility]: Clinical Trial Match 1 Clinical Trial NCT ID: [id number] Clinical Trial Title: Zmgej-kr-Stiyl Study of Mutant-selective PI3K Inhibitor, RLY-2608, as a Single Agent in Patients With Advanced Solid Tumors and in Combination With Endocrine Therapy +/- a CDK4/6 or CDK4 Inhibitor in Patients With Advanced Solid Tumors or Advanced Breast Cancer Clinical Trial URL: https://clinicaltrials .gov/ct2/show/LEZ54188 432 Clinical Phase: Phase 1 Clinical Trial Matches: PIK3CA p.Q546P mutation Clinical Trial Distance and Location: [address] [place], [place] 03/20/2025 12:56 PM CDT [facility]: Clinical Trial Match 2 Clinical Trial NCT ID: [id number] Clinical Trial Title: A Study to Learn About the Study Medicine [id number] When Given Alone or With Other Anti-cancer Therapies in People With Advanced Solid Tumors That Have a Genetic Mutation. Clinical Trial URL: https://clinicaltrials .gov/ct2/show/DVZ40574 662 Clinical Phase: Phase 1 Clinical Trial Matches: KRAS p.A146T mutation Clinical Trial Distance and Location: [address] [place] [address] 03/20/2025 12:56 PM CDT [facility]: Clinical Trial Match 3 Clinical Trial NCT ID: [id number] Clinical Trial Title: Trifluridine/Tipiracil and Talazoparib for the Treatment of Patients With Locally Advanced or Metastatic Colorectal or Gastroesophageal Cancer Clinical Trial URL: https://clinicaltrials .gov/ct2/show/VFH30591 039 Clinical Phase: Phase 1 Clinical Trial Matches: TP53 p.R248W mutation, KRAS p.A146T mutation Clinical Trial Distance and Location: [address] [place], [place] 03/20/2025 12:56 PM CDT [facility] Tumor Mutational Millsap 8.6 m/MB 03/20/2025 12:56 PM CDT [facility] Microsatellite Instability Note MSI-High not detected 12:56 PM CDT [facility] Blood specimen (specimen) 03/14/2025 7:54 PM CDT Narrative This result has genomic variants that were not included in this document. Abhinav Santos MD MOLECULAR ORDERABLES Final Resu lt [facility] [address] [facility], [address] [place] [address], [facility] [address] [facility], [address] [place] [address] * [facility] NORMAL BLOOD (03/13/2025 10:58 AM CDT) [facility] 03/13/2025 11:00 PM CDT [facility] Comment:See NGS Report for R esults. Blood specimen (specimen) 03/13/2025 10:58 AM CDT 03/13/2025 10:59 AM CDT us Abhinav Santos MD MOLECULAR ORDERABLES Final Resu lt Performing Organization Address [facility] Co de Phone Number [facility] [address] [facility], [address] [place] [address], [facility] [address] [facility], [address] [place] [address] * COMPREHENSIVE METABOLIC PANEL (03/10/2025 3:10 PM CDT) Blood us Abhinav Santos MD CHEMISTRY ORDERABLES Final Resu lt * CT ABDOMEN PELVIS W CONTRAST (03/02/2025 10:59 AM CDT) Anatomical Region Laterality Modality Abdomen Computed Tomogra phy us Abhinav Santos MD CT ORDERABLES Final Result from Last 3 Months Insurance [facility] PPO MCR Care Teams Television Camera Operator Relationship Specialty Start Date End Date Venkatesh Rodriguez DO [address] [facility] [address] [place] [address] PCP - General Internal Medicine 10/29/24
== END 2025-03-24 10:39 | disposition home or self-care (01) ==
PROVIDERS: PCP Internal Medicine; Visit Provider Internal Medicine Hematology & Oncology
DX: C78.7 Secondary malignant neoplasm of liver and intrahepatic bile duct (principal); K80.20 Calculus of gallbladder without cholecystitis without obstruction; K44.9 Diaphragmatic hernia without obstruction or gangrene; K57.30 Diverticulosis of large intestine without perforation or abscess without bleeding
CPT/HCPCS: 78815; A9552

== ENCOUNTER 2025-05-04 03:46 | Inpatient (IN) | payer MEDICARE, SELFPAY ==
--- NOTE | ~2025-05-04 | CT_ITS ---
CT abdomen pelvis w con Clinical History: rlq abd pain, hx of colon ca . Comparison: PET/CT 03/24/2025 CT abdomen pelvis 03/02/2025 Technique: Axial images lung bases to symphysis pubis 100 mL Omnipaque 350 Coronal, sagittal reformats CT images acquired with automatic exposure control for dose reduction DLP: 344 mGy-cm Findings: Lung bases: Clear. Visualized heart and pericardium: Unremarkable. Liver: Cirrhosis. A few small hypodense foci too small to characterize. Gallbladder: Tiny stone. Spleen: Unremarkable. Pancreas: Unremarkable. Adrenal glands: Unremarkable. Kidneys: Right kidney- No hydronephrosis. No renal stones. Cysts. Left kidney- No hydronephrosis. No renal stones. Cyst. Distal esophagus/stomach: Large hiatal hernia. Small bowel loops: Normal caliber and wall thickness. Fluid-filled distended loops distally. Colon: Diverticula. Right hemicolectomy. Wall thickening of perianastomotic colon. Nodes: No enlarged nodes. Peritoneum: No ascites. No free air. Urinary bladder: Unremarkable. Prostate: Unremarkable. Small pelvic free fluid. Bones: No acute bony abnormality. Soft tissues: Unremarkable. Aorta: No aneurysm or dissection. IVC: Unremarkable. Main portal vein/SMV/splenic vein: Patent. IMPRESSION: 1. Enteritis and/or mild developing small bowel obstruction. 2. Perianastomotic colitis right hemicolon. While malignancy cannot be excluded, likely merely infectious/inflammatory given no activity on recent PET CT. 3. Liver lesions, better seen on prior PET/CT. Reviewed, dictated and finalized at location [facility]. [facility] IMPRESSION: 1. Enteritis and/or mild developing small bowel obstruction. 2. Perianastomotic colitis right hemicolon. While malignancy cannot be exclude d, likely merely infectious/inflammatory given no activity on recent PET CT. 3. Liver lesions, better seen on prior PET/CT.
[2025-05-04 03:46] VITALS: BP 147/84; PULSE 98; RESP 18; TEMP 36.6
--- NOTE | 2025-05-04 04:09 | ED_ITS ---
HPI - Abdominal Pain General Chief Complaint: Abdominal Pain Stated Complaint: RLQ pain Source: patient and EMS Mode of arrival: EMS Limitations: no limitations History of Present Illness HPI narrative: This is a 49-year-old male with history of colon cancer currently undergoing chemotherapy who presents to the ED for right lower quadrant abdominal pain. Patient states that he was woken up in his sleep with sudden onset right lower quadrant abdominal pain. He has never had this pain before. Denies nausea, vomiting. Pain does not radiate. Pain is worse with extension of his right leg. Patient is supposed to get chemotherapy later today. Related Data Home Medications ?Medication ?Instructions ?Recorded ?Confirmed ?Last Taken ?Type multivitamin 1 tablet PO DAILY 01/10/23 0 03/09/25 01/25/23 History iron 40 mg capsule 40 mg PO BID 02/06/23 Unknown History mecobalamin (vitamin B12) 1,000 1,000 mcg PO DAILY 03/09/25 Unknown History mcg chewable tablet Allergies Allergy/AdvReac Type Severity Reaction Status Date / Time Penicillins Allergy Mild Hives Verified 04/23/25 12:04 Review of Systems 2 Review of Systems: Gen.: Denies fevers or chills Eyes: Denies eye pain or visual change ENT: Denies congestion Respiratory: Denies shortness of breath or cough CV: Denies chest pain or palpitations GI: As per HPI denies burning, urgency, frequency or hematuria Musculoskeletal: Denies back pain or muscle pain Neuro: Denies numbness, tingling, weakness or focal weakness Skin: Denies rash Except as documented, all other systems reviewed and negative [facility] Past Medical History Medical History BMI 24.0-24.9, adult 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 Mckee on 12/21/22. History of lung surgery Elective surgery Finger Family History Family History Sibling Patient's sister is in good health Patient's brother is in good health Mother No problems noted. Father No problems noted. Social History Social History Social History: Patient currently lives alone. Surrogate decision maker: Amos Thomas, daughter. Code status: Full Code. Smoking packs per day: 1 Smoking cigarettes per day: 20.0 Years smoked: 20 Smoking pack-years: 20.00 Tobacco type: cigarettes Second hand tobacco smoke exposure: No Smoking end date: 12/23/90 Alcohol intake: current Drinks per week: 2 Alcohol use details: RARE Substance use: current Substance use type: marijuana Other substance usage details: vapes 2- 3 times weekly Last use: 11/15 Do You Feel Safe in your Home?: Yes Lack of Transportation: No Lack of Food: Never True Current Housing: I Have Housing Concerned About Future Housing: No Difficulty Paying Gas/Electric Bills: No Difficulty Paying for Meds: No Currently Unemployed: No Education: High School Diploma/GED Difficulty w/ Childcare or Family Care: No Living arrangements: alone Occupation/Education: retired 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 CARDIOVASCULAR: Regular rate and rhythm without murmurs rubs or gallops. ABDOMINAL: Soft, diffuse tenderness to palpation worse in the right lower quadrant, nondistended, no rebound or guarding MUSCULOSKELETAl: Moves all extremities. No clubbing, cyanosis or edema. NEURO: Awake and alert. Following commands, speech normal, no focal deficits SKIN:: Warm, dry. No rashes lesions or abrasions PSYCHIATRIC: Normal affect/mood, Course Vital Signs Vital signs: Vital Signs Temperature 98 F 05/04/25 03:46 Pulse Rate 98 05/04/25 03:46 Respiratory Rate 18 05/04/25 03:46 Blood Pressure 147/84 H 05/04/25 03:46 Oxygen Delivery Room Air 05/04/25 03:46 Temperature 98 F 05/04/25 03:46 Pulse Rate 98 05/04/25 03:46 Respiratory Rate 18 05/04/25 03:46 Blood Pressure 147/84 H 05/04/25 03:46 Oxygen Delivery Room Air 05/04/25 03:46 MDM - Abdominal Pain MDM Narrative Medical decision making narrative: 69-year-old male Presenting for right lower quadrant abdominal pain. On initial evaluation patient was in moderate distress, afebrile, hemodynamic stable. Differentials include but are not limited to: Appendicitis, constipation, IBD, IBS, ureterolithiasis, enterocolitis, colitis, hernia, SBO Notable exam findings: Tenderness over the right lower quadrant without rebound or guarding Notable lab findings: Stable leukopenia and anemia. CMP without significant abnormalities. UA clear. Notable imaging findings: CT abdomen/pelvis was potentially consistent with early small-bowel obstruction. Patient did have significant improvement of his pain with 0.5 mg Dilaudid. He only had some mild nausea and never had any vomiting. Clinically this is less consistent with a small-bowel obstruction. I did discuss the case with Dr. Mckee, general surgery, agreed that this is not likely a small bowel obstruction at this time but did want to offer admission to the patient if he would like that. In shared decision making with the patient, he will be admitted for observation. Case was discussed with hospitalist, Dr. Espino, will admit the patient. Medical Records Attestation: I reviewed the patient's medical records. Medical records narrative: Patient had hemicolectomy with Dr. Mckee, general surgery, here in 2022. Lab Data Attestation: I reviewed the patient's lab results. 05/04/25 03:59 05/04/25 03:59 Labs: Lab Results 05/04/25 05/04/25 Range/Units 03:59 05:53 WBC 3.0 L (4.5-10.0) K/mm3 RBC 3.83 L (4.6-6.20) M/mm3 Hgb 12.3 L (14.0-18.0) g/dL Hct 36.8 L (42.0-52.0) % MCV 96.1 (80-100) fl MCH 32.1 (26-34) pg MCHC 33.4 (32-36) g/dl RDW 12.9 (11.5-14.5) % Plt Count 148 L (150-375) k/mm3 MPV 8.2 (7.4-10.4) fl Immature Gran % (Auto) 0.3 (0-0.5) % Neut % (Auto) 52.9 (45.5-73.1) % Lymph % (Auto) 33.9 (18.3-44.2) % [place] % (Auto) 8.5 (2.6-8.5) % Eos % (Auto) 3.7 (0-4.4) % Baso % (Auto) 0.7 (0.2-1.2) % Lymph # (Auto) 1.00 (0.9-3.2) K/mm3 [place] # (Auto) 0.3 (0.1-0.6) K/mm3 Eos # (Auto) 0.1 (0-0.3) K/mm3 Baso # (Auto) 0.0 (0.0-0.1) K/mm3 Abs Immat Gran (auto) 0.01 (0.00-0.031) K/mm3 Absolute Neuts (auto) 1.6 (1.3-6.7) K/mm3 Absolute Nucleated RBC 0.000 (0.0-0.012) K/mm3 Nucleated RBC % 0.0 (0.0-0.2) % Sodium 139 (137-145) mmol/L Potassium 4.1 (3.4-5.0) mmol/L Chloride 107 (98-107) mmol/L Carbon Dioxide 26 (22-30) mmol/L Anion Gap 6 (4-12) mmol/L BUN 11 D (9-20) mg/dL Creatinine 1.06 (0.7-1.3) mg/dL Estim Creat Clear Calc 57 ml/min Estimated GFR > 60 (59 - ) Glucose 119 H (65-110) mg/dL Calcium 9.1 (8.4-10.2) mg/dL Total Bilirubin 0.6 (0.2-1.3) mg/dL AST 36 (17-59) U/L ALT 35 (6-50) U/L Alkaline Phosphatase 70 (38-126) U/L Total Protein 7.2 (6.3-8.2) g/dL Albumin 4.2 (3.5-5.1) g/dL Lipase 185 (23-300) U/L Urine Color Yellow (Yellow) Urine Appearance Clear (Clear) Urine pH 5.0 (5.0-9.0) Ur Specific [place] > 1.045 H (1.001-1.035) Urine Protein Negative (Negative) mg/dL Urine Glucose (UA) Negative (Negative) mg/dL Urine Ketones Negative (Negative) mg/dL Ur Blood (Man) Negative (Negative) Urine Nitrate Negative (Negative) Urine Bilirubin Negative (Negative) Urine Urobilinogen 0.2 (<2.0) mg/dL Leukocyte Esterase Rfl Negative (Negative) ROQUE/UL Imaging Data Attestation: I personally reviewed and interpreted this imaging study as follows: Radiologist's impression: CT abdomen/pelvis: Prominent fluid-filled loops of small bowel are seen within the abdomen and pelvis with a transition point seen with mildly thickened small bowel at the level of the anastomosis within the right lower quadrant. Underlying developing small-bowel obstruction is not excluded. Possible increase in size of left hepatic lobe of the liver measuring 1.9 cm, previously measuring 1.3 cm. Grossly stable hypodense lesion seen within the medial inferior right lobe of liver. Discharge Plan Discharge Clinical Impression: H/O hemicolectomy, Colon adenocarcinoma Abdominal pain Qualifiers: Abdominal location: right lower quadrant Qualified Code(s): R10.31 - Right lower quadrant pain Patient Disposition: Still a Patient Condition: Stable Instructions: Antibiotic Form Patient Language: Bengali Prescriptions: No Action iron 40 mg Capsule 40 mg PO BID Patient Comments: . mecobalamin (vitamin B12) 1,000 mcg tablet,chewable 1,000 mcg PO DAILY multivitamin Tablet 1 tablet PO DAILY pantoprazole [Protonix] 40 mg tablet,delayed release (DR/EC) 40 mg PO BID Qty: 180 1RF Rx Instructions: stop omeprazole lisinopril 20 mg tablet 20 mg PO DAILY Qty: 90 3RF Follow-up/Referrals: UNKNOWN,DOCTOR [Non-Staff]
[2025-05-04 04:16] LABS: Hematocrit 36.8 % (42.0-52.0); Hemoglobin 12.3 g/dL (14.0-18.0); Immature Granulocyte Percent A 0.3 % (0-0.5); Lymphocytes Absolute Auto 1.00 K/mm3 (0.9-3.2); Mean Corpuscular HGB Conc 33.4 g/dl (32-36); Mean Corpuscular Hemoglobin 32.1 pg (26-34); Mean Corpuscular Volume 96.1 fl (80-100); Nucleated Red Blood Cells Absolute Auto 0.000 K/mm3 (0.0-0.012); Nucleated Red Blood Cells Perc 0.0 % (0.0-0.2); Platelet Count Result 148 k/mm3 (150-375); Red Blood Count 3.83 M/mm3 (4.6-6.20); White Blood Count 3.0 K/mm3 (4.5-10.0)
[2025-05-04] MEDS: HYDROmorphone HCL INJ (*CRX) 1 MG/ML SYR 0.5 MG IV PUSH ×3 (04:19→20:09)
[2025-05-04] MEDS: ONDANSETRON INJ 4 MG/2 ML VIAL IV PUSH (04:20)
[2025-05-04] MEDS: SODIUM CHLORIDE 0.9% IV 1,000 ML 999 ML IV CONT (04:21)
[2025-05-04 04:39] LABS: Alanine Aminotransferase 35 U/L (6-50); Albumin Level 4.2 g/dL (3.5-5.1); Alkaline Phosphatase 70 U/L (38-126); Anion Gap 6 mmol/L (4-12); Aspartate Amino Transferase 36 U/L (17-59); Bilirubin,Total 0.6 mg/dL (0.2-1.3); Blood Urea Nitrogen 11 mg/dL (9-20); Calcium 9.1 mg/dL (8.4-10.2); Carbon Dioxide 26 mmol/L (22-30); Chloride 107 mmol/L (98-107); Estimated CRCL calculation 57 ml/min; Estimated Glomerular Filt Rate > 60; Glucose 119 mg/dL (65-110); Lipase 185 U/L (23-300); Potassium 4.1 mmol/L (3.4-5.0); Sodium 139 mmol/L (137-145); Total Protein 7.2 g/dL (6.3-8.2)
[2025-05-04 06:06] LABS: Add Urine Microscopic? NO; Appearance Urine Clear (Clear); Glucose Urine UA Negative (Negative); Leukocyte Esterase Ur Negative LEU/UL (Negative); Nitrate Urine Negative (Negative); Specific Grav Ur > 1.045 (1.001-1.035)
[2025-05-04 06:18] VITALS: BP 118/71; PULSE 88; RESP 20; O2SAT 98
[2025-05-04] MEDS: SODIUM CHLORIDE 0.9% IV 1,000 ML 150 ML IV CONT (06:44)
[2025-05-04 07:34] VITALS: BMI 24.5
--- NOTE | 2025-05-04 07:34 | PC.NURSE ---
PATIENT ARRIVED AT ON [facility] AT 0730
[2025-05-04 07:51] VITALS: BP 125/62; PULSE 87; RESP 14; TEMP 37.4; O2SAT 97
--- NOTE | 2025-05-04 08:58 | P.CONGS_ITS ---
History of Present Illness Consult details Consult date: 05/04/25 [facility] Past Medical History Medical History BMI 24.0-24.9, adult 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 Mckee on 12/21/22. History of lung surgery Elective surgery Finger Family History Family History (Updated 05/04/25 @ 07:57 by Kian Cain RN) Sibling No problems noted. Mother Pancreas cancer Father Lung cancer Mother No problems noted. Social History Social History Social History: Patient currently lives alone. Surrogate decision maker: Amos Thomas, daughter. Code status: Full Code. Smoking packs per day: 1 Smoking cigarettes per day: 20.0 Years smoked: 20 Smoking pack-years: 20.00 Smoking status: Never smoker Tobacco type: cigarettes Second hand tobacco smoke exposure: No Smoking end date: 12/23/90 Alcohol intake: current Drinks per week: 3 Alcohol use details: RARE Substance use: current Substance use type: marijuana Other substance usage details: THC Last use: 11/15 Do You Feel Safe in your Home?: Yes Lack of Transportation: No Lack of Food: Never True Current Housing: I Have Housing Concerned About Future Housing: No Difficulty Paying Gas/Electric Bills: No Difficulty Paying for Meds: No Currently Unemployed: No Education: High School Diploma/GED Difficulty w/ Childcare or Family Care: No Living arrangements: alone Occupation/Education: retired 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 Gender identity (if verbalized by the patient): Male Spiritual care concerns: No Meds Home Medications and Allergies Home Medications ?Medication ?Instructions ?Recorded ?Confirmed ?Type multivitamin 1 tablet PO DAILY 01/10/23 1 07/04/24 History iron 40 mg capsule 20 mg PO BID 02/06/23 History mecobalamin (vitamin B12) 1,000 See Rx Instructions PO DAILY 08/08/23 05/04/25 History mcg chewable tablet pantoprazole 40 mg tablet,delayed 40 mg PO BID #180 ta bs 12/30/24 05/04/25 Rx release (Protonix) lisinopril 20 mg tablet 20 mg PO DAILY #90 tabs 12/2305/04/25 Rx Allergies Allergy/AdvReac Type Severity Reaction Status Date / Time Penicillins Allergy Mild Hives Verified 05/04/25 07:54 Vital Signs Vital Signs - 24 hr 05/04/25 03:46 05/04/25 06:18 05/04/25 07:51 Temperature 98 F 99.3 F Pulse Rate 98 88 87 Respiratory Rate 18 20 14 Blood Pressure 147/84 H 118/71 125/62 Pulse Oximetry 98 97 Oxygen Delivery Room Air Results Labs 05/04/25 03:59 05/04/25 03:59 Labs: Abnormal lab results 05/04/25 05/04/25 Range/Units 03:59 05:53 WBC 3.0 L (4.5-10.0) K/mm3 RBC 3.83 L (4.6-6.20) M/mm3 Hgb 12.3 L (14.0-18.0) g/dL Hct 36.8 L (42.0-52.0) % Plt Count 148 L (150-375) k/mm3 Glucose 119 H (65-110) mg/dL Ur Specific [place] > 1.045 H (1.001-1.035) Diabetes panel 05/04/25 Range/Units 03:59 Sodium 139 (137-145) mmol/L Potassium 4.1 (3.4-5.0) mmol/L Chloride 107 (98-107) mmol/L Carbon Dioxide 26 (22-30) mmol/L BUN 11 D (9-20) mg/dL Creatinine 1.06 (0.7-1.3) mg/dL Glucose 119 H (65-110) mg/dL Calcium 9.1 (8.4-10.2) mg/dL AST 36 (17-59) U/L ALT 35 (6-50) U/L Alkaline Phosphatase 70 (38-126) U/L Total Protein 7.2 (6.3-8.2) g/dL Albumin 4.2 (3.5-5.1) g/dL Calcium panel 05/04/25 Range/Units 03:59 Calcium 9.1 (8.4-10.2) mg/dL Albumin 4.2 (3.5-5.1) g/dL Pituitary panel 05/04/25 Range/Units 03:59 Sodium 139 (137-145) mmol/L Potassium 4.1 (3.4-5.0) mmol/L Chloride 107 (98-107) mmol/L Carbon Dioxide 26 (22-30) mmol/L BUN 11 D (9-20) mg/dL Creatinine 1.06 (0.7-1.3) mg/dL Glucose 119 H (65-110) mg/dL Calcium 9.1 (8.4-10.2) mg/dL Adrenal panel 05/04/25 Range/Units 03:59 Sodium 139 (137-145) mmol/L Potassium 4.1 (3.4-5.0) mmol/L Chloride 107 (98-107) mmol/L Carbon Dioxide 26 (22-30) mmol/L BUN 11 D (9-20) mg/dL Creatinine 1.06 (0.7-1.3) mg/dL Glucose 119 H (65-110) mg/dL Calcium 9.1 (8.4-10.2) mg/dL Total Bilirubin 0.6 (0.2-1.3) mg/dL AST 36 (17-59) U/L ALT 35 (6-50) U/L Alkaline Phosphatase 70 (38-126) U/L Total Protein 7.2 (6.3-8.2) g/dL Albumin 4.2 (3.5-5.1) g/dL All other labs normal.
--- NOTE | 2025-05-04 11:06 | P.CONGS_ITS ---
Assessment and Plan Assessment and plan (1) Right lower quadrant pain: Code(s): R10.31 - Right lower quadrant pain Status: Acute Assessment and Plan: Patient presented to the ED this morning with right lower quadrant cramping abdominal pain that started earlier overnight. CT of the abdomen and pelvis demonstrated enteritis and/or mild developing small bowel obstruction. Perianastomotic colitis right hemicolon. History of colon cancer status post right hemicolectomy in 2022, recently diagnosed with metastasis to the liver. Patient denies any nausea or vomiting. Passing flatus. Abdominal exam fairly benign aside from some RLQ pain. * Continue to manage conservatively with bowel rest and pain control. Will defer NG tube placement at this time. Will monitor closely with serial abdominal exams and labs. (2) Colon adenocarcinoma: Code(s): C18.9 - Malignant neoplasm of colon, unspecified Status: Acute Assessment and Plan: See above. (3) Anemia: Code(s): D64.9 - Anemia, unspecified Status: Acute Plan Discussed patient's case and plan of care with Dr. Mckee. History of Present Illness Consult details Consult date: 05/04/25 Narrative: Patient is a 69-year-old male with history of colon adeno carcinoma (right hemicolectomy by Dr. Mckee on 12/21/2022), recently rediagnosed with metastatic disease to the liver February 2025 (started chemo 2 weeks ago) who we have been asked to see in surgical consultation for early small bowel obstruction. Patient states that right lower quadrant abdominal pain started overnight around 1:30 a.m. Denies any associated nausea or vomiting at the time. Patient follows with Dr. Santos's oncology office and was just recently diagnosed with metastatic disease to the liver roughly a month ago. Started on chemotherapy. Upon admission to the emergency department, vital signs are stable. Labs fairly stable, aside from leukopenia and mild anemia. A CT of the abdomen and pelvis was performed and demonstrated enteritis and/or mild developing small bowel obstruction. Perianastomotic colitis right hemicolon. General surgery team consulted at this time. Only abdominal surgical history includes robotic assisted right hemicolectomy in 2022. No history of small-bowel obstruction. Denies any nausea or vomiting this morning. Passing flatus, no BM. [facility] Past Medical History Medical History BMI 24.0-24.9, adult 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 Mckee on 12/21/22. History of lung surgery Elective surgery Finger Family History Family History (Updated 05/04/25 @ 07:57 by Kian Cain RN) Sibling No problems noted. Mother Pancreas cancer Father Lung cancer Mother No problems noted. Social History Social History Social History: Patient currently lives alone. Surrogate decision maker: Amos Thomas, daughter. Code status: Full Code. Smoking packs per day: 1 Smoking cigarettes per day: 20.0 Years smoked: 20 Smoking pack-years: 20.00 Smoking status: Never smoker Tobacco type: cigarettes Second hand tobacco smoke exposure: No Smoking end date: 12/23/90 Alcohol intake: current Drinks per week: 3 Alcohol use details: RARE Substance use: current Substance use type: marijuana Other substance usage details: THC Last use: 11/15 Do You Feel Safe in your Home?: Yes Lack of Transportation: No Lack of Food: Never True Current Housing: I Have Housing Concerned About Future Housing: No Difficulty Paying Gas/Electric Bills: No Difficulty Paying for Meds: No Currently Unemployed: No Education: High School Diploma/GED Difficulty w/ Childcare or Family Care: No Living arrangements: alone Occupation/Education: retired 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 Gender identity (if verbalized by the patient): Male Spiritual care concerns: No Meds Home Medications and Allergies Home Medications ?Medication ?Instructions ?Recorded ?Confirmed ?Type multivitamin 1 tablet PO DAILY 01/10/23 1 07/04/24 History iron 40 mg capsule 20 mg PO BID 02/06/23 History mecobalamin (vitamin B12) 1,000 See Rx Instructions PO DAILY 08/08/23 05/04/25 History mcg chewable tablet pantoprazole 40 mg tablet,delayed 40 mg PO BID #180 ta bs 12/30/24 05/04/25 Rx release (Protonix) lisinopril 20 mg tablet 20 mg PO DAILY #90 tabs 12/2305/04/25 Rx Allergies Allergy/AdvReac Type Severity Reaction Status Date / Time Penicillins Allergy Mild Hives Verified 05/04/25 07:54 Vital Signs Vital Signs - 24 hr 05/04/25 03:46 05/04/25 06:18 05/04/25 07:51 Temperature 98 F 99.3 F Pulse Rate 98 88 87 Respiratory Rate 18 20 14 Blood Pressure 147/84 H 118/71 125/62 Pulse Oximetry 98 97 Oxygen Delivery Room Air Exam 2 Const: General: comfortable and no acute distress Eyes: General: appearance normal, both eyes and all related structures Neck: Neck: supple Resp: Effort & Inspection: normal respiratory effort Cardio: Rate: regular rate GI: Inspection: non-distended GI Palp: Yes Soft to palpation, Yes Tenderness to palpation present (GI) (Right lower quadrant) and No Guarding due to palpation present (GI) Auscultation: normal bowel sounds Skin: General skin exam: normal color Neuro: Speech: normal speech Sensory Exam: normal sensation Extrem: General: normal to inspection Psych: Mental Status: mental status grossly normal Results Labs 05/04/25 03:59 05/04/25 03:59 Labs: Abnormal lab results 05/04/25 05/04/25 Range/Units 03:59 05:53 WBC 3.0 L (4.5-10.0) K/mm3 RBC 3.83 L (4.6-6.20) M/mm3 Hgb 12.3 L (14.0-18.0) g/dL Hct 36.8 L (42.0-52.0) % Plt Count 148 L (150-375) k/mm3 Glucose 119 H (65-110) mg/dL Ur Specific [place] > 1.045 H (1.001-1.035) Diabetes panel 05/04/25 Range/Units 03:59 Sodium 139 (137-145) mmol/L Potassium 4.1 (3.4-5.0) mmol/L Chloride 107 (98-107) mmol/L Carbon Dioxide 26 (22-30) mmol/L BUN 11 D (9-20) mg/dL Creatinine 1.06 (0.7-1.3) mg/dL Glucose 119 H (65-110) mg/dL Calcium 9.1 (8.4-10.2) mg/dL AST 36 (17-59) U/L ALT 35 (6-50) U/L Alkaline Phosphatase 70 (38-126) U/L Total Protein 7.2 (6.3-8.2) g/dL Albumin 4.2 (3.5-5.1) g/dL Calcium panel 05/04/25 Range/Units 03:59 Calcium 9.1 (8.4-10.2) mg/dL Albumin 4.2 (3.5-5.1) g/dL Pituitary panel 05/04/25 Range/Units 03:59 Sodium 139 (137-145) mmol/L Potassium 4.1 (3.4-5.0) mmol/L Chloride 107 (98-107) mmol/L Carbon Dioxide 26 (22-30) mmol/L BUN 11 D (9-20) mg/dL Creatinine 1.06 (0.7-1.3) mg/dL Glucose 119 H (65-110) mg/dL Calcium 9.1 (8.4-10.2) mg/dL Adrenal panel 05/04/25 Range/Units 03:59 Sodium 139 (137-145) mmol/L Potassium 4.1 (3.4-5.0) mmol/L Chloride 107 (98-107) mmol/L Carbon Dioxide 26 (22-30) mmol/L BUN 11 D (9-20) mg/dL Creatinine 1.06 (0.7-1.3) mg/dL Glucose 119 H (65-110) mg/dL Calcium 9.1 (8.4-10.2) mg/dL Total Bilirubin 0.6 (0.2-1.3) mg/dL AST 36 (17-59) U/L ALT 35 (6-50) U/L Alkaline Phosphatase 70 (38-126) U/L Total Protein 7.2 (6.3-8.2) g/dL Albumin 4.2 (3.5-5.1) g/dL All other labs normal.
--- NOTE | 2025-05-04 11:20 | PM.IMHP ---
H&P: HPI History of Present Illness Date/Time: 05/04/25 11:20 Chief Complaint: RLQ pain Narrative: ER-HPI narrative: This is a 49-year-old male with history of colon cancer currently undergoing chemotherapy who presents to the ED for right lower quadrant abdominal pain. Patient states that he was woken up in his sleep with sudden onset right lower quadrant abdominal pain. He has never had this pain before. Denies nausea, vomiting. Pain does not radiate. Pain is worse with extension of his right leg. Patient is supposed to get chemotherapy later today. Patient is 69 y/o male with colon adenoma cancer s/p right hemicolectomy on 12/21/24, presented with right lower quadrant pain for few days, not passing gas or had BM, Ct scan of abdomen showed possible perianastomotic colitis right hemicolon. While malignancy cannot be excluded, likely merely infectious/inflammatory given no activity on recent PET CT. It patient also has mets to liver, Patient is seen by surgery service and not recommending any surgical intervention, suspect infection or inflammatory process, will monitor and will consult Dr. Santos his oncologist. Review of Systems Review of Systems: Gen.: Denies fevers or chills Eyes: Denies eye pain or visual change ENT: Denies congestion Respiratory: Denies shortness of breath or cough CV: Denies chest pain or palpitations GI: As per HPI denies burning, urgency, frequency or hematuria Musculoskeletal: Denies back pain or muscle pain Neuro: Denies numbness, tingling, weakness or focal weakness Skin: Denies rash Except as documented, all other systems reviewed and negative PMFSH Past Medical History Medical History BMI 24.0-24.9, adult 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 Mckee on 12/21/22. History of lung surgery Elective surgery Finger Family History Family History (Updated 05/04/25 @ 07:57 by Kian Cain RN) Sibling No problems noted. Mother Pancreas cancer Father Lung cancer Mother No problems noted. Social History Social History Social History: Patient currently lives alone. Surrogate decision maker: Amos Thomas, daughter. Code status: Full Code. Smoking packs per day: 1 Smoking cigarettes per day: 20.0 Years smoked: 20 Smoking pack-years: 20.00 Smoking status: Never smoker Tobacco type: cigarettes Second hand tobacco smoke exposure: No Smoking end date: 12/23/90 Alcohol intake: current Drinks per week: 3 Alcohol use details: RARE Substance use: current Substance use type: marijuana Other substance usage details: THC Last use: 11/15 Do You Feel Safe in your Home?: Yes Lack of Transportation: No Lack of Food: Never True Current Housing: I Have Housing Concerned About Future Housing: No Difficulty Paying Gas/Electric Bills: No Difficulty Paying for Meds: No Currently Unemployed: No Education: High School Diploma/GED Difficulty w/ Childcare or Family Care: No Living arrangements: alone Occupation/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 Gender identity (if verbalized by the patient): Male Spiritual care concerns: No Meds Home Medications and Allergies Home Medications ?Medication ?Instructions ?Recorded ?Confirmed ?Type multivitamin 1 tablet PO DAILY 01/10/23 05/04/25 History iron 40 mg capsule 20 mg PO BID 02/06/23 05/04/25 History mecobalamin (vitamin B12) 1,000 See Rx Instructions PO DAILY 08/08/23 05/04/25 History mcg chewable tablet pantoprazole 40 mg tablet,delayed 40 mg PO BID #180 tabs 12/30/24 05/04/25 Rx release (Protonix) lisinopril 20 mg tablet 20 mg PO DAILY #90 tabs 01/07/25 05/04/25 Rx Allergies Allergy/AdvReac Type Severity Reaction Status Date / Time Penicillins Allergy Mild Hives Verified 05/04/25 07:54 Vital Signs Vital Signs - 24 hr 05/04/25 03:46 05/04/25 06:18 05/04/25 07:51 Temperature 36.6 C 37.4 C Pulse Rate 98 88 87 Respiratory Rate 18 20 14 Blood Pressure 147/84 H 118/71 125/62 Pulse Oximetry 98 97 Oxygen Delivery Room Air Exam Narrative: Patient is comfortable, NAD HEENT: eyes are clear and none icteric LUNGS:CTA HEART: RR S1S2 ABD: BS+, Soft and nontender Lower extremities: no edema SKIN: nonjaundiced Neuro: grossly intact. H&P: Results Labs Labs: Short CBC 05/04/25 Range/Units 03:59 WBC 3.0 L (4.5-10.0) K/mm3 Hgb 12.3 L (14.0-18.0) g/dL Hct 36.8 L (42.0-52.0) % Plt Count 148 L (150-375) k/mm3 BMP 05/04/25 03:59 Sodium 139 Potassium 4.1 Chloride 107 Carbon Dioxide 26 BUN 11 D Creatinine 1.06 Glucose 119 H Calcium 9.1 Liver Function 05/04/25 Range/Units 03:59 Total Bilirubin 0.6 (0.2-1.3) mg/dL AST 36 (17-59) U/L ALT 35 (6-50) U/L Alkaline Phosphatase 70 (38-126) U/L Albumin 4.2 (3.5-5.1) g/dL Urine 05/04/25 Range/Units 05:53 Urine Color Yellow (Yellow) Urine Appearance Clear (Clear) Urine pH 5.0 (5.0-9.0) Ur Specific [place] > 1.045 H (1.001-1.035) Urine Protein Negative (Negative) mg/dL Urine Glucose (UA) Negative (Negative) mg/dL Assessment and Plan Assessment and plan (1) Abdominal pain: Code(s): R10.9 - Unspecified abdominal pain Status: Acute (2) Right lower quadrant pain: Code(s): R10.31 - Right lower quadrant pain Status: Acute (3) Colonic mass: Code(s): K63.89 - Other specified diseases of intestine Status: Acute (4) H/O hemicolectomy: Code(s): Z90.49 - Acquired absence of other specified parts of digestive tract Status: Acute (5) Colon adenocarcinoma: Code(s): C18.9 - Malignant neoplasm of colon, unspecified Status: Acute Plan Patient is 69 y/o male with colon adenoma cancer s/p right hemicolectomy on 12/21/24, presented with right lower quadrant pain for few days, not passing gas or had BM, Ct scan of abdomen showed possible perianastomotic colitis right hemicolon. While malignancy cannot be excluded, likely merely infectious/inflammatory given no activity on recent PET CT. It patient also has mets to liver, Patient is seen by surgery service and not recommending any surgical intervention, suspect infection or inflammatory process, will monitor and will consult Dr. Santos his oncologist. Quality VTE Prophylaxis VTE prophylaxis: mechanical ordered Hospitalist MIPS Advance Care Plan The patient's Advanced Care plan is not present because:: Patient doesn't want to name surrogate or provider advance care plan Medication Reconciliation I have utilized all available resources to obtain, update and review the patients current medications (includes all prescriptions, OTC, herbals, cannabis, and nutritional supplements).: Yes The patient is not eligible for med reconciliation; the patient is in a emergent medical situation where delaying treatment would jeopardize the patients health.: Yes
[2025-05-04 11:49] VITALS: BP 113/61; PULSE 78; RESP 15; TEMP 37.2; O2SAT 96
[2025-05-04 14:00] VITALS: BP 109/66; PULSE 80; RESP 16; TEMP 37.2; O2SAT 96
--- NOTE | 2025-05-04 18:11 | WPDONCCN ---
Assessment and Plan Assessment and plan (1) Colon adenocarcinoma: Code(s): C18.9 - Malignant neoplasm of colon, unspecified Status: Acute Assessment and Plan: metastatic colon cancer diagnosed after the PET scan done on March 19 showed new liver lesions. Patient was initially diagnosed with stage III colon cancer status post right-sided hemicolectomy in November of 2022 and then adjuvant chemotherapy with FOLFOX regimen which he completed in August of 2023. Unfortunately due to development of metastatic colon cancer he started palliative chemotherapy with FOLFIRI Avastin received cycle 1. On April 21. Came into the hospital with colitis symptoms which is secondary to his chemotherapy with irinotecan. I have reviewed the CT scan findings. I will hold chemotherapy for 1 week duration and will reduce the dose of atropine that was given as a premedication before the chemotherapy for diarrhea. I will continue with liquids and semi-solid diet and then gradually increase to solid diet as tolerated. He will follow-up in the office next week with repeat blood test and hopefully resumption of chemotherapy. HPI Data of Consult Date/Time: 05/04/25 18:11 Requesting Physician: Martha Espino DO Primary Care Provider: Venkatesh Rodriguez DO Consult Narrative Narrative: Leighann Thomas is a 69 year old male With history of stage IV colon cancer status post right-sided hemicolectomy done on November 2022 and then it seemed to Edwige chemotherapy 5th FOLFOX completed in August 2023. Unfortunately recent PET scan done on March 24, 2025 showed 3 FDG avid masses in the liver consistent with metastatic disease. Patient started palliative chemotherapy with FOLFIRI Avastin and received cycle 1. On April 21. He came into the hospital with abdominal pain. He had constipation for 1 week duration after the last chemotherapy. Denies any melena hematochezia. CT scan from today showed a try itis/mild developing small-bowel obstruction with perianastomotic colitis. Other labs showed WBC of 3.0 with hemoglobin of 12.3 and platelets [id number]. No other new complaints. Review of Systems Review of Systems: Twelve point review of system was reviewed [facility] Past Medical History Medical History BMI 24.0-24.9, adult 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 Mckee on 12/21/22. History of lung surgery Elective surgery Finger Family History Family History (Updated 05/04/25 @ 07:57 by Kian Cain RN) Sibling No problems noted. Mother Pancreas cancer Father Lung cancer Mother No problems noted. Social History Social History Social History: Patient currently lives alone. Surrogate decision maker: Amos Thomas, daughter. Code status: Full Code. Smoking packs per day: 1 Smoking cigarettes per day: 20.0 Years smoked: 20 Smoking pack-years: 20.00 Smoking status: Never smoker Tobacco type: cigarettes Second hand tobacco smoke exposure: No Smoking end date: 12/23/90 Alcohol intake: current Drinks per week: 3 Alcohol use details: RARE Substance use: current Substance use type: marijuana Other substance usage details: THC Last use: 11/15 Do You Feel Safe in your Home?: Yes Lack of Transportation: No Lack of Food: Never True Current Housing: I Have Housing Concerned About Future Housing: No Difficulty Paying Gas/Electric Bills: No Difficulty Paying for Meds: No Currently Unemployed: No Education: High School Diploma/GED Difficulty w/ Childcare or Family Care: No Living arrangements: alone Occupation/Education: retired 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 Gender identity (if verbalized by the patient): Male Spiritual care concerns: No Meds Home Medications and Allergies Home Medications ?Medication ?Instructions ?Recorded ?Confirmed ?Type multivitamin 1 tablet PO DAILY 01/10/23 05/04/25 History iron 40 mg capsule 20 mg PO BID 02/06/23 05/04/25 History mecobalamin (vitamin B12) 1,000 See Rx Instructions PO DAILY 08/08/23 05/04/25 History mcg chewable tablet pantoprazole 40 mg tablet,delayed 40 mg PO BID #180 tabs 12/30/24 05/04/25 Rx release (Protonix) lisinopril 20 mg tablet 20 mg PO DAILY #90 tabs 01/07/25 05/04/25 Rx Allergies Allergy/AdvReac Type Severity Reaction Status Date / Time Penicillins Allergy Mild Hives Verified 05/04/25 07:54 Vital Signs Vital Signs - 24 hr 05/04/25 03:46 05/04/25 06:18 05/04/25 07:51 Temperature 36.6 C 37.4 C Pulse Rate 98 88 87 Respiratory Rate 18 20 14 Blood Pressure 147/84 H 118/71 125/62 Pulse Oximetry 98 97 Oxygen Delivery Room Air 05/04/25 09:00 05/04/25 11:49 05/04/25 14:00 Temperature 37.2 C 37.2 C Pulse Rate 78 80 Respiratory Rate 15 16 Blood Pressure 113/61 109/66 Pulse Oximetry 96 96 Oxygen Delivery Room Air Exam Narrative: lungs are clear to auscultation bilaterally cardiovascular regular rate rhythm no murmurs abdomen soft nontender nondistended extremities no edema Results Labs 05/04/25 03:59 05/04/25 03:59 Labs: Short CBC 05/04/25 Range/Units 03:59 WBC 3.0 L (4.5-10.0) K/mm3 Hgb 12.3 L (14.0-18.0) g/dL Hct 36.8 L (42.0-52.0) % Plt Count 148 L (150-375) k/mm3 BMP 05/04/25 03:59 Sodium 139 Potassium 4.1 Chloride 107 Carbon Dioxide 26 BUN 11 D Creatinine 1.06 Glucose 119 H Calcium 9.1 Liver Function 05/04/25 Range/Units 03:59 Total Bilirubin 0.6 (0.2-1.3) mg/dL AST 36 (17-59) U/L ALT 35 (6-50) U/L Alkaline Phosphatase 70 (38-126) U/L Albumin 4.2 (3.5-5.1) g/dL Urine 05/04/25 Range/Units 05:53 Urine Color Yellow (Yellow) Urine Appearance Clear (Clear) Urine pH 5.0 (5.0-9.0) Ur Specific [place] > 1.045 H (1.001-1.035) Urine Protein Negative (Negative) mg/dL Urine Glucose (UA) Negative (Negative) mg/dL
[2025-05-04] MEDS: HYDROcodone/acetaminophen (*CRX) 5-325 MG TABLET 1 TAB PO (18:13)
[2025-05-04] MEDS: CYANOCOBALAMIN 1,000 MCG TABLET 1000 MCG PO (18:20)
[2025-05-04] MEDS: PANTOPRAZOLE 40 MG TABLET PO (20:11)
[2025-05-04 20:35] VITALS: BP 127/64; PULSE 65; RESP 20; TEMP 36.4; O2SAT 97
[2025-05-04] MEDS: KETOROLAC 30 MG/ML VIAL (*BKC) IV PUSH (22:32)
[2025-05-05] MEDS: HYDROmorphone HCL INJ (*CRX) 1 MG/ML SYR 0.5 MG IV PUSH (00:22)
[2025-05-05 04:25] VITALS: BP 140/57; PULSE 87; RESP 14; TEMP 37; O2SAT 94
[2025-05-05] MEDS: KETOROLAC 30 MG/ML VIAL (*BKC) IV PUSH ×3 (04:28→17:05)
[2025-05-05 06:08] LABS: Hematocrit 30.0 % (42.0-52.0); Hemoglobin 10.1 g/dL (14.0-18.0); Mean Corpuscular HGB Conc 33.7 g/dl (32-36); Mean Corpuscular Hemoglobin 32.6 pg (26-34); Mean Corpuscular Volume 96.8 fl (80-100); Platelet Count Result 109 k/mm3 (150-375); Red Blood Count 3.10 M/mm3 (4.6-6.20); White Blood Count 2.2 K/mm3 (4.5-10.0)
[2025-05-05 06:30] LABS: Anion Gap 5 mmol/L (4-12); Blood Urea Nitrogen 13 mg/dL (9-20); Calcium 8.6 mg/dL (8.4-10.2); Carbon Dioxide 21 mmol/L (22-30); Chloride 107 mmol/L (98-107); Estimated CRCL calculation 56 ml/min; Estimated Glomerular Filt Rate > 60; Glucose 107 mg/dL (65-110); Magnesium 1.8 mg/dL (1.6-2.3); Potassium 3.3 mmol/L (3.4-5.0); Sodium 133 mmol/L (137-145)
[2025-05-05] MEDS: FERROUS SULFATE 325 MG TABLET PO (09:15)
[2025-05-05] MEDS: MULTIVITAMINS THERAPEUTIC TAB (*BKC) 1 TABLET PO (09:15)
[2025-05-05] MEDS: CYANOCOBALAMIN 1,000 MCG TABLET 1000 MCG PO (09:15)
[2025-05-05] MEDS: PANTOPRAZOLE 40 MG TABLET PO ×2 (09:16→21:07)
[2025-05-05] MEDS: POTASSIUM CHLORIDE 20 MEQ PACKET (FOR LIQUID) 40 MEQ PO (09:19)
--- NOTE | 2025-05-05 09:29 | P.PNGS_ITS ---
Progress Note: A&P Assessment and Plan (1) Right lower quadrant pain: Code(s): R10.31 - Right lower quadrant pain Status: Acute Assessment and Plan: * Tolerating clear liquids without nausea or vomiting. Minimal abdominal pain this morning. Passing flatus, no BM yet. Will advance diet today and continue to manage conservatively. Encouraged ambulation. (2) Colon adenocarcinoma: Code(s): C18.9 - Malignant neoplasm of colon, unspecified Status: Acute (3) Anemia: Code(s): D64.9 - Anemia, unspecified Status: Acute Assessment and Plan: Hgb 10.1 today. Will continue to monitor closely. Plan Discussed patient's case and plan of care with Dr. Mckee. Subjective Subjective Date/Time Seen: 05/05/25 09:29 Patient reports: no new complaints, feels better, tolerating liquids well, flatus and no bowel movement Interval history: Patient doing well today. He did have some pain overnight that required dilaudid. Feels much better this morning. Tolerating clear liquids without nausea or vomiting. Exam Const: General: comfortable and no acute distress GI: Inspection: non-distended GI Palp: Yes Soft to palpation, Yes Tenderness to palpation present (GI) (minima ltenderness RLQ) and No Guarding due to palpation present (GI) Auscultation: normal bowel sounds Objective Data Vital Signs Vital Signs: Vital Signs - 24 hr 05/04/25 11:49 05/04/25 14:00 05/04/25 20:35 Temperature 98.9 F 98.9 F 97.6 F Pulse Rate 78 80 65 Respiratory Rate 15 16 20 Blood Pressure 113/61 109/66 127/64 Pulse Oximetry 96 96 97 05/05/25 04:25 Temperature 98.6 F Pulse Rate 87 Respiratory Rate 14 Blood Pressure 140/57 L Pulse Oximetry 94 Intake/Output Intake/Output: Intake & Output 05/02/25 05/03/25 05/04/25 05/05/25 23:59 23:59 23:59 23:59 Intake Total 1480 300 Balance 1480 300 Meds/Results Medications: Active Medications Generic Name Dose Route Start Last Admin Trade Name Freq PRN Reason Stop Dose Admin Hydrocodone Bitart/Acetaminophen 1 tab 05/04/25 18:02 05/04/25 18:13 Hydrocodone/Acetaminophen (*Crx) 5-325 Mg Tablet PO 1 tab Q6H PRN Administration Pain Rated 4-6 Cyanocobalamin 1,000 mcg 05/04/25 09:00 05/05/25 09:15 Cyanocobalamin 1,000 Mcg Tablet PO 1,000 mcg QAM JOHNATHAN Administration Ferrous Sulfate 325 mg 05/05/25 09:00 05/05/25 09:15 Ferrous Sulfate 325 Mg Tablet PO 325 mg DAILY JOHNATHAN Administration Hydromorphone HCl 0.5 mg 05/04/25 06:18 05/05/25 00:22 Hydromorphone Hcl Inj (*Crx) 1 Mg/Ml Syr IV PUSH 0.5 mg Q4H PRN Administration Pain Rated 7-10 Ketorolac Tromethamine 30 mg 05/04/25 22:00 05/05/25 04:28 Ketorolac 30 Mg/Ml Vial (*Bkc) IV PUSH 05/05/25 16:01 30 mg Q6H JOHNATHAN Administration Lisinopril 20 mg 05/05/25 09:00 05/05/25 09:16 Lisinopril 20 Mg Tablet PO 20 mg DAILY JOHNATHAN Administration Multivitamins Therapeutic 1 tablet 05/05/25 09:00 05/05/25 09:15 Multivitamins Therapeutic Tab (*Bkc) PO 1 tablet DAILY JOHNATHAN Administration Ondansetron HCl 4 mg 05/04/25 06:18 Ondansetron Inj 4 Mg/2 Ml Vial IV PUSH Q4H PRN Nausea Pantoprazole Sodium 40 mg 05/04/25 21:00 05/05/25 09:16 Pantoprazole 40 Mg Tablet PO 40 mg Q12HR JOHNATHAN Administration Radiology Results: ITS Impressions Abdomen/Pelvis CT 05/04/25 06:38 IMPRESSION: 1. Enteritis and/or mild developing small bowel obstruction. 2. Perianastomotic colitis right hemicolon. While malignancy cannot be excluded, likely merely infectious/inflammatory given no activity on recent PET CT. 3. Liver lesions, better seen on prior PET/CT. Labs Labs: Laboratory Results - last 24 hr 05/05/25 05:44 WBC 2.2 L RBC 3.10 L Hgb 10.1 L Hct 30.0 L MCV 96.8 MCH 32.6 MCHC 33.7 RDW 12.8 Plt Count 109 L MPV 8.6 Sodium 133 L Potassium 3.3 L Chloride 107 Carbon Dioxide 21 L Anion Gap 5 BUN 13 Creatinine 1.06 Estim Creat Clear Calc 56 Estimated GFR > 60 Glucose 107 Calcium 8.6 Magnesium 1.8
--- NOTE | 2025-05-05 12:51 | WPDONCPN ---
Progress Note: A&P Assessment and Plan (1) Colon adenocarcinoma: Code(s): C18.9 - Malignant neoplasm of colon, unspecified Status: Acute (2) Pancytopenia due to chemotherapy: Code(s): D61.810 - Antineoplastic chemotherapy induced pancytopenia Status: Acute (3) Right lower quadrant pain: Code(s): R10.31 - Right lower quadrant pain Status: Acute Plan Metatatic colon cancer - currently receiving FOLFIRI + Avastin. - Chemotherapy postponed until Sunday. Will reevaluate prior to administration. Will continue to hold should abdominal issue not be resolved by then. Pancytopenia, chemotherapy induced. - Observe labs. - Recommend diff with next blood draw Abdominal pain - Continue clear liquid diet - Per surgery Time Spent With Patient Time: 15 minutes Subjective Date/time seen: 05/05/25 12:51 Interval history: 70 year old male with metastatic colon cancer currently being treated with FOLFIRI + Avastin and admitted with stabbing RLQ abdominal pain. Patient had a history of diarrhea for which he was receiving Atropine. Patient currently receiving iv pain medications with good pain control. Tolerating clear liquid diet. Patient frustrated at not knowing how long until the pain resolves. CT abd/pelvis (05/04/25): 1. Enteritis and/or mild developing small bowel obstruction. 2. Perianastomotic colitis right hemicolon. While malignancy cannot be excluded, likely merely infectious/inflammatory given no activity on recent PET CT. 3. Liver lesions, better seen on prior PET/CT. Labs (05/05/25): WBC 2.2, Hgb 10.1, Hct 30.0, Plt 109 Review of Systems Review of Systems Patient doing better with improved pain control. Patient unclear how often he is asking for pain medication which is given iv. He tells me that the po pain medication was ineffective. Currently on a clear liquid diet which he is tolerating. Gastrointestinal Comments: RLQ abdominal pain improving. Exam Const: Other: Well appearing male in no acute distress. HENMT: Mouth: Yes moist mucous membranes Resp: Effort & Inspection: normal respiratory effort Auscultation: clear to auscultation bilaterally GI: Other: Soft, NT. BS normal Skin: Other: Warm Neuro: Other: Alert and oriented Extrem: Other: No edema Objective Data Vital Signs Vital Signs: Vital Signs - 24 hr 05/04/25 14:00 05/04/25 20:35 05/05/25 04:25 Temperature 37.2 C 36.4 C 37.0 C Pulse Rate 80 65 87 Respiratory Rate 16 20 14 Blood Pressure 109/66 127/64 140/57 L Pulse Oximetry 96 97 94 Oxygen Delivery 05/05/25 09:15 Temperature Pulse Rate Respiratory Rate Blood Pressure Pulse Oximetry Oxygen Delivery Room Air Intake/Output Intake/Output: Intake & Output 05/02/25 05/03/25 05/04/25 05/05/25 23:59 23:59 23:59 23:59 Intake Total 1480 420 Balance 1480 420 Meds/Results Medications: Active Medications Generic Name Dose Route Start Last Admin Trade Name Freq PRN Reason Stop Dose Admin Hydrocodone Bitart/Acetaminophen 1 tab 05/04/25 18:02 05/04/25 18:13 Hydrocodone/Acetaminophen (*Crx) 5-325 Mg Tablet PO 1 tab Q6H PRN Administration Pain Rated 4-6 Cyanocobalamin 1,000 mcg 05/04/25 09:00 05/05/25 09:15 Cyanocobalamin 1,000 Mcg Tablet PO 1,000 mcg QAM JOHNATHAN Administration Ferrous Sulfate 325 mg 05/05/25 09:00 05/05/25 09:15 Ferrous Sulfate 325 Mg Tablet PO 325 mg DAILY JOHNATHAN Administration Hydromorphone HCl 0.5 mg 05/04/25 06:18 05/05/25 00:22 Hydromorphone Hcl Inj (*Crx) 1 Mg/Ml Syr IV PUSH 0.5 mg Q4H PRN Administration Pain Rated 7-10 Ketorolac Tromethamine 30 mg 05/04/25 22:00 05/05/25 10:37 Ketorolac 30 Mg/Ml Vial (*Bkc) IV PUSH 05/05/25 16:01 30 mg Q6H JOHNATHAN Administration Lisinopril 20 mg 05/05/25 09:00 05/05/25 09:16 Lisinopril 20 Mg Tablet PO 20 mg DAILY JOHNATHAN Administration Multivitamins Therapeutic 1 tablet 05/05/25 09:00 05/05/25 09:15 Multivitamins Therapeutic Tab (*Bkc) PO 1 tablet DAILY JOHNATHAN Administration Ondansetron HCl 4 mg 05/04/25 06:18 Ondansetron Inj 4 Mg/2 Ml Vial IV PUSH Q4H PRN Nausea Pantoprazole Sodium 40 mg 05/04/25 21:00 05/05/25 09:16 Pantoprazole 40 Mg Tablet PO 40 mg Q12HR JOHNATHAN Administration Radiology Results: ITS Impressions Abdomen/Pelvis CT 05/04/25 06:38 IMPRESSION: 1. Enteritis and/or mild developing small bowel obstruction. 2. Perianastomotic colitis right hemicolon. While malignancy cannot be excluded, likely merely infectious/inflammatory given no activity on recent PET CT. 3. Liver lesions, better seen on prior PET/CT. Labs Labs: Laboratory Results - last 24 hr 05/05/25 05:44 WBC 2.2 L RBC 3.10 L Hgb 10.1 L Hct 30.0 L MCV 96.8 MCH 32.6 MCHC 33.7 RDW 12.8 Plt Count 109 L MPV 8.6 Sodium 133 L Potassium 3.3 L Chloride 107 Carbon Dioxide 21 L Anion Gap 5 BUN 13 Creatinine 1.06 Estim Creat Clear Calc 56 Estimated GFR > 60 Glucose 107 Calcium 8.6 Magnesium 1.8
[2025-05-05 14:00] VITALS: BP 118/60; PULSE 82; RESP 17; TEMP 37.4; O2SAT 95
--- NOTE | 2025-05-05 15:32 | PM.IMPN ---
Progress Note: A&P Assessment and Plan (1) Abdominal pain: Code(s): R10.9 - Unspecified abdominal pain Status: Acute (2) Right lower quadrant pain: Code(s): R10.31 - Right lower quadrant pain Status: Acute (3) Colonic mass: Code(s): K63.89 - Other specified diseases of intestine Status: Acute (4) H/O hemicolectomy: Code(s): Z90.49 - Acquired absence of other specified parts of digestive tract Status: Acute (5) Colon adenocarcinoma: Code(s): C18.9 - Malignant neoplasm of colon, unspecified Status: Acute Plan patient symptoms somewhat better he is passing gas, seen by his surgeon advance diet to clear liquids as tolerated, seen by his oncologist and will hold his chemotherapy until his stomach issues have resolved, will encourage patient to ambulate as tolerated, will monitor. Patient is 69 y/o male with colon adenoma cancer s/p right hemicolectomy on 12/21/24, presented with right lower quadrant pain for few days, not passing gas or had BM, Ct scan of abdomen showed possible perianastomotic colitis right hemicolon. While malignancy cannot be excluded, likely merely infectious/inflammatory given no activity on recent PET CT. It patient also has mets to liver, Patient is seen by surgery service and not recommending any surgical intervention, suspect infection or inflammatory process, will monitor and will consult Dr. Santos his oncologist. Subjective Date/time seen: 05/05/25 15:32 Interval history: Patient is 69 y/o male with colon adenoma cancer s/p right hemicolectomy on 12/21/24, presented with right lower quadrant pain for few days, not passing gas or had BM, Ct scan of abdomen showed possible perianastomotic colitis right hemicolon. While malignancy cannot be excluded, likely merely infectious/inflammatory given no activity on recent PET CT. It patient also has mets to liver, Patient is seen by surgery service and not recommending any surgical intervention, suspect infection or inflammatory process, will monitor and will consult Dr. Santos his oncologist. patient symptoms somewhat better he is passing gas, seen by his surgeon advance diet to clear liquids as tolerated, seen by his oncologist and will hold his chemotherapy until his stomach issues have resolved, will encourage patient to ambulate as tolerated, will monitor. Review of Systems Review of Systems: Gen.: Denies fevers or chills Eyes: Denies eye pain or visual change ENT: Denies congestion Respiratory: Denies shortness of breath or cough CV: Denies chest pain or palpitations GI: As per HPI denies burning, urgency, frequency or hematuria Musculoskeletal: Denies back pain or muscle pain Neuro: Denies numbness, tingling, weakness or focal weakness Skin: Denies rash Except as documented, all other systems reviewed and negative Exam Narrative: Patient is comfortable, NAD HEENT: eyes are clear and none icteric LUNGS:CTA HEART: RR S1S2 ABD: BS+, Soft and nontender Lower extremities: no edema SKIN: nonjaundiced Neuro: grossly intact. Objective Data Vital Signs Vital Signs: Vital Signs - 24 hr 05/04/25 20:35 05/05/25 04:25 05/05/25 09:15 Temperature 36.4 C 37.0 C Pulse Rate 65 87 Respiratory Rate 20 14 Blood Pressure 127/64 140/57 L Pulse Oximetry 97 94 Oxygen Delivery Room Air 05/05/25 14:00 Temperature 37.4 C Pulse Rate 82 Respiratory Rate 17 Blood Pressure 118/60 Pulse Oximetry 95 Oxygen Delivery Intake/Output Intake/Output: Intake & Output 05/02/25 05/03/25 05/04/25 05/05/25 23:59 23:59 23:59 23:59 Intake Total 1480 420 Balance 1480 420 Meds/Results Medications: Active Medications Generic Name Dose Route Start Last Admin Trade Name Freq PRN Reason Stop Dose Admin Hydrocodone Bitart/Acetaminophen 1 tab 05/04/25 18:02 05/04/25 18:13 Hydrocodone/Acetaminophen (*Crx) 5-325 Mg Tablet PO 1 tab Q6H PRN Administration Pain Rated 4-6 Cyanocobalamin 1,000 mcg 05/04/25 09:00 05/05/25 09:15 Cyanocobalamin 1,000 Mcg Tablet PO 1,000 mcg QAM JOHNATHAN Administration Ferrous Sulfate 325 mg 05/05/25 09:00 05/05/25 09:15 Ferrous Sulfate 325 Mg Tablet PO 325 mg DAILY JOHNATHAN Administration Hydromorphone HCl 0.5 mg 05/04/25 06:18 05/05/25 00:22 Hydromorphone Hcl Inj (*Crx) 1 Mg/Ml Syr IV PUSH 0.5 mg Q4H PRN Administration Pain Rated 7-10 Ketorolac Tromethamine 30 mg 05/04/25 22:00 05/05/25 10:37 Ketorolac 30 Mg/Ml Vial (*Bkc) IV PUSH 05/05/25 16:01 30 mg Q6H JOHNATHAN Administration Lisinopril 20 mg 05/05/25 09:00 05/05/25 09:16 Lisinopril 20 Mg Tablet PO 20 mg DAILY JOHNATHAN Administration Multivitamins Therapeutic 1 tablet 05/05/25 09:00 05/05/25 09:15 Multivitamins Therapeutic Tab (*Bkc) PO 1 tablet DAILY JOHNATHAN Administration Ondansetron HCl 4 mg 05/04/25 06:18 Ondansetron Inj 4 Mg/2 Ml Vial IV PUSH Q4H PRN Nausea Pantoprazole Sodium 40 mg 05/04/25 21:00 05/05/25 09:16 Pantoprazole 40 Mg Tablet PO 40 mg Q12HR JOHNATHAN Administration Radiology Results: ITS Impressions Abdomen/Pelvis CT 05/04/25 06:38 IMPRESSION: 1. Enteritis and/or mild developing small bowel obstruction. 2. Perianastomotic colitis right hemicolon. While malignancy cannot be excluded, likely merely infectious/inflammatory given no activity on recent PET CT. 3. Liver lesions, better seen on prior PET/CT. Labs Labs: Laboratory Results - last 24 hr 05/05/25 05:44 WBC 2.2 L RBC 3.10 L Hgb 10.1 L Hct 30.0 L MCV 96.8 MCH 32.6 MCHC 33.7 RDW 12.8 Plt Count 109 L MPV 8.6 Sodium 133 L Potassium 3.3 L Chloride 107 Carbon Dioxide 21 L Anion Gap 5 BUN 13 Creatinine 1.06 Estim Creat Clear Calc 56 Estimated GFR > 60 Glucose 107 Calcium 8.6 Magnesium 1.8 Quality VTE Prophylaxis VTE prophylaxis: mechanical ordered
[2025-05-05 20:00] VITALS: PULSE 89; RESP 18; O2SAT 97
[2025-05-05 20:20] VITALS: BP 146/68; PULSE 89; RESP 18; TEMP 36.8; O2SAT 97
[2025-05-06 04:50] VITALS: BP 137/65; PULSE 70; RESP 20; TEMP 36.4; O2SAT 99
[2025-05-06 05:53] LABS: Anion Gap 7 mmol/L (4-12); Blood Urea Nitrogen 15 mg/dL (9-20); Calcium 8.9 mg/dL (8.4-10.2); Carbon Dioxide 23 mmol/L (22-30); Chloride 105 mmol/L (98-107); Estimated CRCL calculation 58 ml/min; Estimated Glomerular Filt Rate > 60; Glucose 105 mg/dL (65-110); Magnesium 2.0 mg/dL (1.6-2.3); Potassium 3.4 mmol/L (3.4-5.0); Sodium 135 mmol/L (137-145)
[2025-05-06 08:52] LABS: Hematocrit 34.1 % (42.0-52.0); Hemoglobin 11.4 g/dL (14.0-18.0); Immature Granulocyte Percent A 0.4 % (0-0.5); Lymphocytes Absolute Auto 0.67 K/mm3 (0.9-3.2); Mean Corpuscular HGB Conc 33.4 g/dl (32-36); Mean Corpuscular Hemoglobin 32.2 pg (26-34); Mean Corpuscular Volume 96.3 fl (80-100); Nucleated Red Blood Cells Absolute Auto 0.000 K/mm3 (0.0-0.012); Nucleated Red Blood Cells Perc 0.0 % (0.0-0.2); Platelet Count Result 145 k/mm3 (150-375); Red Blood Count 3.54 M/mm3 (4.6-6.20); White Blood Count 2.5 K/mm3 (4.5-10.0)
[2025-05-06] MEDS: POTASSIUM CHLORIDE 20 MEQ ER TABLET 40 MEQ PO (09:17)
[2025-05-06] MEDS: PANTOPRAZOLE 40 MG TABLET PO (09:18)
[2025-05-06] MEDS: FERROUS SULFATE 325 MG TABLET PO (09:18)
[2025-05-06] MEDS: MULTIVITAMINS THERAPEUTIC TAB (*BKC) 1 TABLET PO (09:18)
[2025-05-06] MEDS: CYANOCOBALAMIN 1,000 MCG TABLET 1000 MCG PO (09:18)
--- NOTE | 2025-05-06 12:11 | PM.PNGS ---
Progress Note: A&P Assessment and Plan (1) Abdominal pain: Qualifiers: Abdominal location: right lower quadrant Qualified Code(s): R10.31 - Right lower quadrant pain Code(s): R10.9 - Unspecified abdominal pain Status: Acute Assessment and Plan: exam completely benign, having bowel function, tolerating full liquid diet, will advance to soft diet and if tolerates okay to DC home from surgical standpoint Subjective Subjective Date/Time Seen: 05/06/25 12:11 Interval history: feels much better, having bowel function, was tolerating full liquid diet Review of Systems Review of Systems: All systems reviewed & are unremarkable except as noted in HPI and below Exam Const: General: cooperative, comfortable and no acute distress Resp: Auscultation: clear to auscultation bilaterally Cardio: Rate: regular rate Rhythm: regular rhythm GI: Inspection: normal to inspection and non-distended GI Palp: No abdominal tenderness and Yes Soft to palpation Objective Data Vital Signs Vital Signs: Vital Signs - 24 hr 05/05/25 14:00 05/05/25 20:00 05/05/25 20:20 Temperature 37.4 C 36.8 C Pulse Rate 82 89 89 Respiratory Rate 17 18 18 Blood Pressure 118/60 146/68 H Pulse Oximetry 95 97 97 Oxygen Delivery Room Air 05/06/25 04:50 05/06/25 09:11 Temperature 36.4 C L Pulse Rate 70 Respiratory Rate 20 Blood Pressure 137/65 Pulse Oximetry 99 Oxygen Delivery Room Air Intake/Output Intake/Output: Intake & Output 05/03/25 05/04/25 05/05/25 05/06/25 23:59 23:59 23:59 23:59 Intake Total 1480 780 540 Output Total 150 Balance 1480 780 390 Meds/Results Medications: Active Medications Generic Name Dose Route Start Last Admin Trade Name Freq PRN Reason Stop Dose Admin Hydrocodone Bitart/Acetaminophen 1 tab 05/04/25 18:02 05/04/25 18:13 Hydrocodone/Acetaminophen (*Crx) 5-325 Mg Tablet PO 1 tab Q6H PRN Administration Pain Rated 4-6 Cyanocobalamin 1,000 mcg 05/04/25 09:00 05/06/25 09:18 Cyanocobalamin 1,000 Mcg Tablet PO 1,000 mcg QAM JOHNATHAN Administration Ferrous Sulfate 325 mg 05/05/25 09:00 05/06/25 09:18 Ferrous Sulfate 325 Mg Tablet PO 325 mg DAILY JOHNATHAN Administration Hydromorphone HCl 0.5 mg 05/04/25 06:18 05/05/25 00:22 Hydromorphone Hcl Inj (*Crx) 1 Mg/Ml Syr IV PUSH 0.5 mg Q4H PRN Administration Pain Rated 7-10 Lisinopril 20 mg 05/05/25 09:00 05/06/25 09:18 Lisinopril 20 Mg Tablet PO 20 mg DAILY JOHNATHAN Administration Multivitamins Therapeutic 1 tablet 05/05/25 09:00 05/06/25 09:18 Multivitamins Therapeutic Tab (*Bkc) PO 1 tablet DAILY JOHNATHAN Administration Ondansetron HCl 4 mg 05/04/25 06:18 Ondansetron Inj 4 Mg/2 Ml Vial IV PUSH Q4H PRN Nausea Pantoprazole Sodium 40 mg 05/04/25 21:00 05/06/25 09:18 Pantoprazole 40 Mg Tablet PO 40 mg Q12HR JOHNATHAN Administration Radiology Results: ITS Impressions Abdomen/Pelvis CT 05/04/25 06:38 IMPRESSION: 1. Enteritis and/or mild developing small bowel obstruction. 2. Perianastomotic colitis right hemicolon. While malignancy cannot be excluded, likely merely infectious/inflammatory given no activity on recent PET CT. 3. Liver lesions, better seen on prior PET/CT. Labs Labs: Laboratory Results - last 24 hr 05/06/25 04:54 WBC 2.5 L RBC 3.54 L Hgb 11.4 L Hct 34.1 L MCV 96.3 MCH 32.2 MCHC 33.4 RDW 12.7 Plt Count 145 L MPV 8.8 Immature Gran % (Auto) 0.4 Neut % (Auto) 48.5 Lymph % (Auto) 26.5 [place] % (Auto) 20.2 H Eos % (Auto) 3.2 Baso % (Auto) 1.2 Lymph # (Auto) 0.67 L [place] # (Auto) 0.5 Eos # (Auto) 0.1 Baso # (Auto) 0.0 Abs Immat Gran (auto) 0.01 Absolute Neuts (auto) 1.2 L Absolute Nucleated RBC 0.000 Nucleated RBC % 0.0 Sodium 135 L Potassium 3.4 Chloride 105 Carbon Dioxide 23 Anion Gap 7 BUN 15 Creatinine 1.01 Estim Creat Clear Calc 58 Estimated GFR > 60 Glucose 105 Calcium 8.9 Magnesium 2.0
--- NOTE | 2025-05-06 13:45 | PM.DS ---
DS: Admitting Diagnosis Discharge Date 05/06/25 Admitting Diagnosis RLQ pain DS: Discharge Diagnosis Discharge Diagnosis (1) Abdominal pain: Code(s): R10.9 - Unspecified abdominal pain Status: Acute (2) Right lower quadrant pain: Code(s): R10.31 - Right lower quadrant pain Status: Acute (3) Colonic mass: Code(s): K63.89 - Other specified diseases of intestine Status: Acute (4) H/O hemicolectomy: Code(s): Z90.49 - Acquired absence of other specified parts of digestive tract Status: Acute (5) Colon adenocarcinoma: Code(s): C18.9 - Malignant neoplasm of colon, unspecified Status: Acute Plan patient symptoms somewhat better he is passing gas, seen by his surgeon advance diet to clear liquids as tolerated, seen by his oncologist and will hold his chemotherapy until his stomach issues have resolved, will encourage patient to ambulate as tolerated, will monitor. Patient is 69 y/o male with colon adenoma cancer s/p right hemicolectomy on 12/21/24, presented with right lower quadrant pain for few days, not passing gas or had BM, Ct scan of abdomen showed possible perianastomotic colitis right hemicolon. While malignancy cannot be excluded, likely merely infectious/inflammatory given no activity on recent PET CT. It patient also has mets to liver, Patient is seen by surgery service and not recommending any surgical intervention, suspect infection or inflammatory process, will monitor and will consult Dr. Santos his oncologist. DS: Summary Hospital Course Hospital Course: patient symptoms somewhat better he is passing gas, seen by his surgeon advance diet to clear liquids as tolerated, seen by his oncologist and will hold his chemotherapy until his stomach issues have resolved, will encourage patient to ambulate as tolerated, will monitor. Patient is 69 y/o male with colon adenoma cancer s/p right hemicolectomy on 12/21/24, presented with right lower quadrant pain for few days, not passing gas or had BM, Ct scan of abdomen showed possible perianastomotic colitis right hemicolon. While malignancy cannot be excluded, likely merely infectious/inflammatory given no activity on recent PET CT. It patient also has mets to liver, Patient is seen by surgery service and not recommending any surgical intervention, suspect infection or inflammatory process, will monitor and will consult Dr. Santos his oncologist. patient clinical symptoms have improved, he tolerating his diet and had 2 BM, seen by surgery service, will discharge home today. Time Spent with Patient Time attestation: Total time spent providing and/or coordinating discharge services: Exam Narrative: Patient is comfortable, NAD HEENT: eyes are clear and none icteric LUNGS:CTA HEART: RR S1S2 ABD: BS+, Soft and nontender Lower extremities: no edema SKIN: nonjaundiced Neuro: grossly intact. DS: Data Data Completed and Pending Labs on day of discharge: Labs from last 24 hours 05/06/25 04:54 WBC 2.5 L RBC 3.54 L Hgb 11.4 L Hct 34.1 L MCV 96.3 MCH 32.2 MCHC 33.4 RDW 12.7 Plt Count 145 L MPV 8.8 Immature Gran % (Auto) 0.4 Neut % (Auto) 48.5 Lymph % (Auto) 26.5 [place] % (Auto) 20.2 H Eos % (Auto) 3.2 Baso % (Auto) 1.2 Lymph # (Auto) 0.67 L [place] # (Auto) 0.5 Eos # (Auto) 0.1 Baso # (Auto) 0.0 Abs Immat Gran (auto) 0.01 Absolute Neuts (auto) 1.2 L Absolute Nucleated RBC 0.000 Nucleated RBC % 0.0 Sodium 135 L Potassium 3.4 Chloride 105 Carbon Dioxide 23 Anion Gap 7 BUN 15 Creatinine 1.01 Estim Creat Clear Calc 58 Estimated GFR > 60 Glucose 105 Calcium 8.9 Magnesium 2.0 Discharge Plan Discharge Attending physician on discharge: Martha Espino Consulting providers: Mame Mckee; bAhinav Santos; Nidhi Thomas; Lyssa Robles; Roney Rivas Discharging Clinician: Adriana Rob Patient Disposition: Home Activity: as tolerated Diet: low fiber Discharge Instructions: patient is instructed to eat light low fiber meals, avoid heavy fatty meals, patient to follow discharge care instruction from his surgeon and oncologist, patient to follow up with his primary care provider as soon as possible. patient is instructed if any symptoms redevelop to go to nearest ER. Patient Instructions: Antibiotic Form Patient Language: Estonian Stand Alone Forms: General Discharge Information Follow-up/Referrals: Abhinav Santos MD [Physician, Hematology] Mame Mckee MD [Physician, General Surgery] Venkatesh Rodriguez DO [Primary Care Provider, Internal Medicine] Discharge Medications: New ferrous sulfate 325 mg (65 mg iron) Tablet,Delayed Release (Dr/Ec) 325 mg PO DAILY Qty: 30 0RF Continued mecobalamin (vitamin B12) 1,000 mcg tablet,chewable See Rx Instructions PO DAILY Patient Comments: UNKNOWN DOSAGE Rx Instructions: orally daily; multivitamin Tablet 1 tablet PO DAILY pantoprazole [Protonix] 40 mg tablet,delayed release (DR/EC) 40 mg PO BID Qty: 180 1RF Rx Instructions: stop omeprazole lisinopril 20 mg tablet 20 mg PO DAILY Qty: 90 3RF Discontinued iron 40 mg Capsule 20 mg PO BID Patient Comments: . Date of admission: 05/05/25 14:47 Primary Care Provider: Venkatesh Rodriguez Admitting Provider: Martha Espino Attending physician on admission: Adriana Rob Condition: Stable
== END 2025-05-06 15:05 | disposition home or self-care (01) | DRG 393 ==
LOC: ANHED 06:35 → ANH3MEDSUR 07:02
PROVIDERS: Admitting Provider Internal Medicine; Emergency Provider Student in an Organized Health Care Education/Training Program; PCP Internal Medicine; Visit Provider Family Medicine
DX: K52.1 Toxic gastroenteritis and colitis (principal); D61.810 Antineoplastic chemotherapy induced pancytopenia; C18.9 Malignant neoplasm of colon, unspecified; C78.7 Secondary malignant neoplasm of liver and intrahepatic bile duct; I10 Essential (primary) hypertension; E78.5 Hyperlipidemia, unspecified; K57.30 Diverticulosis of large intestine without perforation or abscess without bleeding; K21.9 Gastro-esophageal reflux disease without esophagitis; T45.1X5A Adverse effect of antineoplastic and immunosuppressive drugs, initial encounter; Z87.891 Personal history of nicotine dependence
CPT/HCPCS: 36415; 74177; 80048; 80053; 81003; 83690; 83735; 85025; 85027; 96361; 96374; 96375; 99285; A9270; G0378; J1171; J1885; J2405; J7030; Q9967